=== PATIENT | male | born 1990 | race Caucasian/White ===

== ENCOUNTER 2020-05-24 16:45 | Emergency (ER) | payer OTHER, SELFPAY ==
[2020-05-24 18:11] VITALS: BP 135/57; PULSE 86; RESP 18; TEMP 36.7; O2SAT 100; BMI 32.3
--- NOTE | 2020-05-24 18:12 | ED.GENADULT ---
HPI - General Adult General Chief complaint: Psychiatric Symptoms <PB Montesinos - Last Filed: 05/24/20 18:17> Stated complaint: Crisis <PB Montesinos - Last Filed: 05/24/20 18:17> Time Seen by Provider: 05/24/20 18:10 <PB Montesinos Last Filed: 05/24/20 18:17> Source: patient <PB Montesinos - Last Filed: 05/24/20 18:17> Mode of arrival: ambulatory <PB Montesinos Last Filed: 05/24/20 18:17> Limitations: no limitations <PB Montesinos Last Filed: 05/24/20 18:17> History of Present Illness HPI narrative: 29 y/o male with history of bipolar depression previously on lithium, anxiety, Asberger's who presents with loree as well as suicidal thoughts x1 week. He has a plan of cutting his abdomen. History of SI but no attempts. He has been putting off getting helping because of his work schedule. He has been off of his psychiatric medications for several months and has not seen his therapist for several months. He reports again this was due to work conflicts. He works 3rd shift at [employer]. He is now homeless, sleeping in hotels from time to time. Admits to occasional ETOH but denies recent and denies drug use. <PB Montesinos - Last Filed: 05/24/20 18:17> MD complaint: loree & SI <PB Montesinos - Last Filed: 05/24/20 18:17> Onset (ago): week(s) (1) <PB Montesinos - Last Filed: 05/24/20 18:17> Severity: severe <PB Montesinos Last Filed: 05/24/20 18:17> Associated symptoms: headaches, loss of appetite and other (insomnia) <PB Montesinos Last Filed: 05/24/20 18:17> Treatments prior to arrival: none <PB Montesinos Last Filed: 05/24/20 18:17> Related Data Allergies/adverse reactions: Allergies Allergy/AdvReac Type Severity Reaction Status Date / Time No Known Allergies Allergy Verified 05/24/20 18:10 [No Known Allergies*] <PB Montesinos - Last Filed: 05/24/20 18:17> [facility] Past Medical History Medical History: Medical History (Updated 05/25/20 @ 00:55 by PB Montgomery) Anxiety Asperger syndrome Bipolar 1 disorder <PB Montesinos - Last Filed: 05/24/20 18:17> Social History Social History: Social History Alcohol intake: current Alcohol intake frequency: holidays/special occasions only Smoking Status: Unknown if ever smoked Use of substances other than those prescribed or required for medical reasons: No Advance Directives: No Advance Directives Information Provided: No <PB Montesinos - Last Filed: 05/24/20 18:17> Physical Exam Vital Signs: Vital Signs: Last Vital Signs Temp 97.3 F 05/24/20 23:55 Pulse 78 05/24/20 23:55 Resp 18 05/24/20 23:55 BP 116/66 05/24/20 23:55 Pulse Ox 99 05/24/20 23:55 Body Mass Index 32.3 <PB Montesinos - Last Filed: 05/24/20 18:17> Vital Signs: Last Vital Signs Temp 97.3 F 05/24/20 23:55 Pulse 78 05/24/20 23:55 Resp 18 05/24/20 23:55 BP 116/66 05/24/20 23:55 Pulse Ox 99 05/24/20 23:55 Body Mass Index 32.3 <PB Motngomery - Last Filed: 05/25/20 00:55> Course Course Course Narrative: Rapid medical assessment - 29 y/o male with history of bipolar <PB Montesinos - Last Filed: 05/24/20 18:17> Reevaluation(s) Reevaluation #1: Patient seen by [facility] consulted who states patient is safe for discharge. She states patient does not have any suicidal or homicidal ideation. Patient reiterates he is not suicidal or homicidal. Patient will be discharged. <PB Montgomery - Last Filed: 05/25/20 00:55> Time: 00:53 <PB Montgomery - Last Filed: 05/25/20 00:55> Medical Decision Making Lab Data Result diagrams: : 05/24/20 18:50 05/24/20 18:50 <PB Montesinos - Last Filed: 05/24/20 18:17> Labs: Lab Results 05/24/20 05/24/20 05/24/20 Range/Units 18:50 18:50 18:50 WBC 8.1 (4.8-10.8) X10*3/uL RBC 5.45 (4.60-5.80) X10*6/uL Hgb 16.1 (14.0-18.0) g/dl Hct 48.3 (42-52) % MCV 88.6 (80-98) fL MCH 29.5 (27.0-33.0) pg MCHC 33.3 (31.0-36.0) g/dl RDW 12.2 (11.0-16.0) % Plt Count 225 (160-400) X10*3/uL MPV 11.1 (9.4-12.4) fL Immature Gran % (Auto) 1.1 H (0.0-0.4) % Neut % (Auto) 63.8 (45-73) % Lymph % (Auto) 23.1 (20-40) % [place] % (Auto) 9.2 (2-11) % Eos % (Auto) 2.1 (0-4) % Baso % (Auto) 0.7 (0-2) % Lymph # (Auto) 1.9 (1.2-4.9) X10*3/uL [place] # (Auto) 0.8 (0.1-1.2) X10*3/uL Eos # (Auto) 0.2 (0.0-0.4) X10*3/uL Baso # (Auto) 0.1 (0.0-0.2) X10*3/uL Abs Immat Gran (auto) 0.09 H (0.00-0.03) X10*3/uL Absolute Neuts (auto) 5.2 (2.0-8.3) X10*3/uL Absolute Nucleated RBC 0.000 (0.0-0.012) X10*3/uL Nucleated RBC % (auto) 0.0 (0.0-0.2) /100WBC Sodium 137 (135-145) mmol/L Potassium 4.4 (3.3-5.1) mmol/l Chloride 102 (96-108) mmol/L Carbon Dioxide 25 (22-29) mmol/L Anion Gap 14 (12-20) BUN 15 (9-16) mg/dL Creatinine 0.78 (0.5-1.4) mg/dL Estim Creat Clear Calc 148.7 Estimated GFR > 60 POC Glucose (60-115) mg/dL Random Glucose 93 (60-115) mg/dL Calcium 9.8 (8.4-10.2) mg/dL Magnesium 2.1 (1.6-2.6) mg/dL Total Bilirubin 0.5 (0.0-1.0) mg/dL Direct Bilirubin 0.2 (0.0-0.5) mg/dL AST 21 (5-37) U/L ALT 31 (0-40) U/L Alkaline Phosphatase 70 (39-117) U/L Total Protein 7.7 (6.5-8.0) g/dL Albumin 4.8 (3.5-5.0) g/dL Urine Opiates Screen (Not Detect) Ur Barbiturates Screen (Not Detect) Ur Phencyclidine Scrn (Not Detect) Ur Amphetamines Screen (Not Detect) U Benzodiazepines Scrn (Not Detect) [place] < 0.10 L (0.60-1.20) mmol/L Urine Cocaine Screen (Not Detect) U Marijuana (THC) Screen (Not Detect) Ethyl Alcohol mg/dL 05/24/20 05/24/20 05/24/20 Range/Units 18:50 18:51 18:55 WBC (4.8-10.8) X10*3/uL RBC (4.60-5.80) X10*6/uL Hgb (14.0-18.0) g/dl Hct (42-52) % MCV (80-98) fL MCH (27.0-33.0) pg MCHC (31.0-36.0) g/dl RDW (11.0-16.0) % Plt Count (160-400) X10*3/uL MPV (9.4-12.4) fL Immature Gran % (Auto) (0.0-0.4) % Neut % (Auto) (45-73) % Lymph % (Auto) (20-40) % [place] % (Auto) (2-11) % Eos % (Auto) (0-4) % Baso % (Auto) (0-2) % Lymph # (Auto) (1.2-4.9) X10*3/uL [place] # (Auto) (0.1-1.2) X10*3/uL Eos # (Auto) (0.0-0.4) X10*3/uL Baso # (Auto) (0.0-0.2) X10*3/uL Abs Immat Gran (auto) (0.00-0.03) X10*3/uL Absolute Neuts (auto) (2.0-8.3) X10*3/uL Absolute Nucleated RBC (0.0-0.012) X10*3/uL Nucleated RBC % (auto) (0.0-0.2) /100WBC Sodium (135-145) mmol/L Potassium (3.3-5.1) mmol/l Chloride (96-108) mmol/L Carbon Dioxide (22-29) mmol/L Anion Gap (12-20) BUN (9-16) mg/dL Creatinine (0.5-1.4) mg/dL Estim Creat Clear Calc Estimated GFR POC Glucose 81 (60-115) mg/dL Random Glucose (60-115) mg/dL Calcium (8.4-10.2) mg/dL Magnesium (1.6-2.6) mg/dL Total Bilirubin (0.0-1.0) mg/dL Direct Bilirubin (0.0-0.5) mg/dL AST (5-37) U/L ALT (0-40) U/L Alkaline Phosphatase (39-117) U/L Total Protein (6.5-8.0) g/dL Albumin (3.5-5.0) g/dL Urine Opiates Screen Not Detected (Not Detect) Ur Barbiturates Screen Not Detected (Not Detect) Ur Phencyclidine Scrn Not Detected (Not Detect) Ur Amphetamines Screen Not Detected (Not Detect) U Benzodiazepines Scrn Not Detected (Not Detect) [place] (0.60-1.20) mmol/L Urine Cocaine Screen Not Detected (Not Detect) U Marijuana (THC) Screen Not Detected (Not Detect) Ethyl Alcohol < 10 mg/dL <PB Montesinos - Last Filed: 05/24/20 18:17> Lab Results 05/24/20 05/24/20 05/24/20 Range/Units 18:50 18:50 18:50 WBC 8.1 (4.8-10.8) X10*3/uL RBC 5.45 (4.60-5.80) X10*6/uL Hgb 16.1 (14.0-18.0) g/dl Hct 48.3 (42-52) % MCV 88.6 (80-98) fL MCH 29.5 (27.0-33.0) pg MCHC 33.3 (31.0-36.0) g/dl RDW 12.2 (11.0-16.0) % Plt Count 225 (160-400) X10*3/uL MPV 11.1 (9.4-12.4) fL Immature Gran % (Auto) 1.1 H (0.0-0.4) % Neut % (Auto) 63.8 (45-73) % Lymph % (Auto) 23.1 (20-40) % [place] % (Auto) 9.2 (2-11) % Eos % (Auto) 2.1 (0-4) % Baso % (Auto) 0.7 (0-2) % Lymph # (Auto) 1.9 (1.2-4.9) X10*3/uL [place] # (Auto) 0.8 (0.1-1.2) X10*3/uL Eos # (Auto) 0.2 (0.0-0.4) X10*3/uL Baso # (Auto) 0.1 (0.0-0.2) X10*3/uL Abs Immat Gran (auto) 0.09 H (0.00-0.03) X10*3/uL Absolute Neuts (auto) 5.2 (2.0-8.3) X10*3/uL Absolute Nucleated RBC 0.000 (0.0-0.012) X10*3/uL Nucleated RBC % (auto) 0.0 (0.0-0.2) /100WBC Sodium 137 (135-145) mmol/L Potassium 4.4 (3.3-5.1) mmol/l Chloride 102 (96-108) mmol/L Carbon Dioxide 25 (22-29) mmol/L Anion Gap 14 (12-20) BUN 15 (9-16) mg/dL Creatinine 0.78 (0.5-1.4) mg/dL Estim Creat Clear Calc 148.7 Estimated GFR > 60 POC Glucose (60-115) mg/dL Random Glucose 93 (60-115) mg/dL Calcium 9.8 (8.4-10.2) mg/dL Magnesium 2.1 (1.6-2.6) mg/dL Total Bilirubin 0.5 (0.0-1.0) mg/dL Direct Bilirubin 0.2 (0.0-0.5) mg/dL AST 21 (5-37) U/L ALT 31 (0-40) U/L Alkaline Phosphatase 70 (39-117) U/L Total Protein 7.7 (6.5-8.0) g/dL Albumin 4.8 (3.5-5.0) g/dL Urine Opiates Screen (Not Detect) Ur Barbiturates Screen (Not Detect) Ur Phencyclidine Scrn (Not Detect) Ur Amphetamines Screen (Not Detect) U Benzodiazepines Scrn (Not Detect) [place] < 0.10 L (0.60-1.20) mmol/L Urine Cocaine Screen (Not Detect) U Marijuana (THC) Screen (Not Detect) Ethyl Alcohol mg/dL 05/24/20 05/24/20 05/24/20 Range/Units 18:50 18:51 18:55 WBC (4.8-10.8) X10*3/uL RBC (4.60-5.80) X10*6/uL Hgb (14.0-18.0) g/dl Hct (42-52) % MCV (80-98) fL MCH (27.0-33.0) pg MCHC (31.0-36.0) g/dl RDW (11.0-16.0) % Plt Count (160-400) X10*3/uL MPV (9.4-12.4) fL Immature Gran % (Auto) (0.0-0.4) % Neut % (Auto) (45-73) % Lymph % (Auto) (20-40) % [place] % (Auto) (2-11) % Eos % (Auto) (0-4) % Baso % (Auto) (0-2) % Lymph # (Auto) (1.2-4.9) X10*3/uL [place] # (Auto) (0.1-1.2) X10*3/uL Eos # (Auto) (0.0-0.4) X10*3/uL Baso # (Auto) (0.0-0.2) X10*3/uL Abs Immat Gran (auto) (0.00-0.03) X10*3/uL Absolute Neuts (auto) (2.0-8.3) X10*3/uL Absolute Nucleated RBC (0.0-0.012) X10*3/uL Nucleated RBC % (auto) (0.0-0.2) /100WBC Sodium (135-145) mmol/L Potassium (3.3-5.1) mmol/l Chloride (96-108) mmol/L Carbon Dioxide (22-29) mmol/L Anion Gap (12-20) BUN (9-16) mg/dL Creatinine (0.5-1.4) mg/dL Estim Creat Clear Calc Estimated GFR POC Glucose 81 (60-115) mg/dL Random Glucose (60-115) mg/dL Calcium (8.4-10.2) mg/dL Magnesium (1.6-2.6) mg/dL Total Bilirubin (0.0-1.0) mg/dL Direct Bilirubin (0.0-0.5) mg/dL AST (5-37) U/L ALT (0-40) U/L Alkaline Phosphatase (39-117) U/L Total Protein (6.5-8.0) g/dL Albumin (3.5-5.0) g/dL Urine Opiates Screen Not Detected (Not Detect) Ur Barbiturates Screen Not Detected (Not Detect) Ur Phencyclidine Scrn Not Detected (Not Detect) Ur Amphetamines Screen Not Detected (Not Detect) U Benzodiazepines Scrn Not Detected (Not Detect) [place] (0.60-1.20) mmol/L Urine Cocaine Screen Not Detected (Not Detect) U Marijuana (THC) Screen Not Detected (Not Detect) Ethyl Alcohol < 10 mg/dL <PB Montgomery - Last Filed: 05/25/20 00:55> Discharge Plan Discharge Clinical Impression: Bipolar disorder, Depression <PB Montesinos - Last Filed: 05/24/20 18:17> Patient Disposition: Home, Self-Care <PB Montesinos - Last Filed: 05/24/20 18:17> Instructions: Bipolar Disorder (ED), Depression (ED) <PB Montesinos - Last Filed: 05/24/20 18:17> Additional Instructions: Return to the ED immediately for any suicida/homicidal ideation, auditory/visual hallucinations, or any other concerning symptoms. Please follow-up with the PCP <PB Montesinos - Last Filed: 05/24/20 18:17> Print Language: Macanese <PB Montesinos - Last Filed: 05/24/20 18:17>
[2020-05-24 18:31] VITALS: BP 120/66; PULSE 82; RESP 18; TEMP 36.7; O2SAT 96
--- NOTE | 2020-05-24 18:33 | PC.NURSE ---
Pt cooperative with post exchange manager, reports that he has been off his medications for a few months, states he doesn't remember when he last took them. PT reports SI no specific plan at this time.
[2020-05-24 18:56] LABS: MANUAL DIFF FLAG NO
[2020-05-24 18:59] LABS: Glucose, Whole Blood 81 mg/dL (60-115)
[2020-05-24 19:00] LABS: Basophils Absolute Auto 0.1 X10*3/uL (0.0-0.2); Basophils Percent Auto 0.7 % (0-2); Eosinophils Absolute Auto 0.2 X10*3/uL (0.0-0.4); Eosinophils Percent Auto 2.1 % (0-4); Hematocrit 48.3 % (42-52); Hemoglobin 16.1 g/dl (14.0-18.0); Imm Gran Abs Auto 0.09 X10*3/uL (0.00-0.03); Imm Gran Pct Auto 1.1 % (0.0-0.4); Lymphocytes Absolute Auto 1.9 X10*3/uL (1.2-4.9); Lymphocytes Percent Auto 23.1 % (20-40); Mean Corpuscular HGB Conc 33.3 g/dl (31.0-36.0); Mean Corpuscular Hemoglobin 29.5 pg (27.0-33.0); Mean Corpuscular Volume 88.6 fL (80-98); Mean Platelet Volume 11.1 fL (9.4-12.4); Monocytes Absolute Auto 0.8 X10*3/uL (0.1-1.2); Monocytes Percent Auto 9.2 % (2-11); Neutrophils Absolute Auto 5.2 X10*3/uL (2.0-8.3); Neutrophils Percent Auto 63.8 % (45-73); Platelet Count 225 X10*3/uL (160-400); Red Blood Count 5.45 X10*6/uL (4.60-5.80); Red Cell Distribution Width 12.2 % (11.0-16.0); White Blood Count 8.1 X10*3/uL (4.8-10.8)
--- NOTE | 2020-05-24 19:13 | PC.NURSE ---
Report received. PT is resting in his room. Calm and cooperative. PT waiting to be seen by N.
[2020-05-24 19:18] LABS: Ethanol < 10 mg/dL
[2020-05-24 19:20] LABS: Alanine Aminotransferase 31 U/L (0-40); Albumin Level 4.8 g/dL (3.5-5.0); Alkaline Phosphatase 70 U/L (39-117); Anion Gap 14 (12-20); Aspartate Amino Transferase 21 U/L (5-37); Bilirubin Direct 0.2 mg/dL (0.0-0.5); Bilirubin Total 0.5 mg/dL (0.0-1.0); Blood Urea Nitrogen 15 mg/dL (9-16); Calcium 9.8 mg/dL (8.4-10.2); Carbon Dioxide 25 mmol/L (22-29); Chloride 102 mmol/L (96-108); Creatinine Clr Calc Pharmacy 148.7; Estimated Glomerular Filt Rate > 60; Glucose Random 93 mg/dL (60-115); Magnesium 2.1 mg/dL (1.6-2.6); Potassium 4.4 mmol/l (3.3-5.1); Sodium 137 mmol/L (135-145); Total Protein 7.7 g/dL (6.5-8.0)
--- NOTE | 2020-05-24 19:36 | PC.NURSE ---
GEOVANNAN faxed and called. GEOVANNAN stated the PT would likely be seen on 3rd shift.
[2020-05-24 19:41] LABS: Lithium < 0.10 mmol/L (0.60-1.20)
[2020-05-24 19:44] LABS: Amphetamine Screen Urine Not Detected (Not Detect); Barbiturates, Urine Not Detected (Not Detect); Benzodiazepines Screen Urine Not Detected (Not Detect); Cannabinoid Screen Urine Not Detected (Not Detect); Cocaine Screen Urine Not Detected (Not Detect); Opiate Screen Urine Not Detected (Not Detect); Phencyclidine Screen Urine Not Detected (Not Detect)
--- NOTE | 2020-05-24 22:10 | PC.NURSE ---
BHN at bed side.
[2020-05-24 23:55] VITALS: BP 116/66; PULSE 78; RESP 18; TEMP 36.3; O2SAT 99
== END 2020-05-25 01:04 | disposition home or self-care (01) ==
PROVIDERS: Physician Assistant; Emergency Provider Emergency Medicine
DX: F32.9 Major depressive disorder, single episode, unspecified (principal); F84.5 Asperger's syndrome; Z79.899 Other long term (current) drug therapy
CPT/HCPCS: 36415; 80048; 80076; 80178; 80307; 80320; 82947; 83735; 85025; 99284; 99285

== ENCOUNTER 2020-05-26 13:38 | Inpatient (IN) | payer OTHER, SELFPAY ==
[2020-05-26 13:55] VITALS: BP 125/73; PULSE 80; TEMP 36.4; O2SAT 99
--- NOTE | 2020-05-26 15:10 | PC.NURSE ---
Report received. Pt resting in bed at current, no complaints at this time.
[2020-05-26 16:07] LABS: Amphetamine Screen Urine Not Detected (Not Detect); Barbiturates, Urine Not Detected (Not Detect); Benzodiazepines Screen Urine Not Detected (Not Detect); Cannabinoid Screen Urine Not Detected (Not Detect); Cocaine Screen Urine Not Detected (Not Detect); Opiate Screen Urine Not Detected (Not Detect); Phencyclidine Screen Urine Not Detected (Not Detect)
[2020-05-26 16:23] VITALS: BMI 31.0
--- NOTE | 2020-05-26 16:31 | PC.NURSE ---
SUSAN faxed and called.
--- NOTE | 2020-05-26 16:47 | ED.PSYCH ---
HPI - Psych General Chief Complaint: Psychiatric Symptoms Stated Complaint: crisis Time Seen by Provider: 05/26/20 14:19 Source: patient Mode of arrival: ambulatory Limitations: no limitations History of Present Illness HPI Narrative: 29-year-old male with history of bipolar disorder presenting with Ohri via triage with complaint of SI states he has been out of his psych medications for the past several months and has had increased feeling of disorganized and feels has disorganized behaviors with suicidal ideation. States recently fired from a job. Patient was seen here 2 days ago for similar had lab work and evaluate crisis team set up with outpatient services returns as he feels that they recommended respite and feels he needs respite service. complaint: suicidal ideation and feels depressed Relieving factors: none Associated psychiatric symptoms: none Treatments prior to arrival: none Related Data Allergies Allergy/AdvReac Type Severity Reaction Status Date / Time No Known Allergies Allergy Verified 05/24/20 18:10 [No Known Allergies*] Review of Systems Review of Systems: Constitutional: No Weight loss, No Fever, No Chills, No Night Sweats, No Fatigue, No Malaise ENT/Mouth: No Hearing loss, No Ear Pain, No Nasal Congestion, No Sinus Pain, No Hoarseness, No sore throat, No Rhinorrhea, No Swallowing Difficulty Eyes: No Eye Pain, No Swelling, No Redness, No Foreign Body, No Discharge, No Vision Changes Cardiovascular: No Chest Pain, No SOB, No Dyspnea on Exertion, No Orthopnea, No Edema, No Palpitations Respiratory: No Cough, No Sputum, No Wheezing, No Smoke Exposure, No Dyspnea Gastrointestinal: No Nausea, No Vomiting, No Diarrhea, No Constipation, No abdominal Pain, No Hematochezia, No Melena Genitourinary: No Dysuria, No Urinary Frequency, No Hematuria, No Urinary Incontinence, No Urgency, No Flank Pain Musculoskeletal: No joint pain, No Myalgias, No Joint Swelling Skin: No Skin Lesions, No rash Neuro: No Weakness, No Numbness, No Paresthesias, No Loss of Consciousness, No Dizziness, No Headache Psych: Has known HPI Heme/Lymph: No Bruising, No Bleeding,No Lymphadenopathy Endocrine: No Polyuria, No Polydipsia, No Temperature Intolerance Yes all other systems are reviewed and are negative [facility] Past Medical History Medical History (Updated 05/26/20 @ 16:50 by Bradly Medina NP) Anxiety Asperger syndrome Bipolar 1 disorder Social History Social History Alcohol intake: current Alcohol intake frequency: holidays/special occasions only Alcohol type: beer Smoking Status: Never smoker Use of substances other than those prescribed or required for medical reasons: No Advance Directives: No Advance Directives Information Provided: No Physical Exam Vital Signs: Vital Signs: Last Vital Signs Temp 97.5 F 05/26/20 13:55 Pulse 80 05/26/20 13:55 BP 125/73 05/26/20 13:55 Pulse Ox 99 05/26/20 13:55 Body Mass Index 31.0 Reviewed Const: General: cooperative and healthy appearing; No acute distress or intoxicated appearing Nutritional Appearance: average body habitus Orientation/consciousness: patient oriented x3 HENMT: Head: Yes normal to inspection Ears: hearing grossly normal bilaterally Eyes: General: appearance normal, both eyes and all related structures Visual Richard: normal visual richard by confrontation Neck: Neck: Yes normal visual inspection, No positive Brudzinski's sign, No positive Kernig's sign and No tender Thyroid: Thyroid normal Chest: Chest palpation & inspection: normal inspection of the chest Resp: Effort & Inspection: normal respiratory effort Cardio: Jugular venous distension: no JVD Rhythm: regular rhythm Heart sounds: S1 normal heart sound present and S2 normal heart sound present GI: Inspection: Yes normal to inspection Palpation (GI): Soft to palpation Percussion: Yes normal to percussion Auscultation: normal bowel sounds : General: Yes no CVA tenderness Back/Spine/Pelvis: Back: no CVA tenderness Skin: General skin exam: no rashes or lesions noted Neuro: General: patient oriented x3 Extrem: General: Yes normal to inspection Course Course Course Narrative: 1500 Labs reviewed from 2 days ago 05/24/2020 stable. With before on any additional labs. He is stable offers no medical complaints. Will obtain crisis evaluation. Consultations Consultation #1: Sign out to night team pending crisis evaluation and disposition. MDM - Psych Restraints Face to Face Assessment: Face to Face Assessment: Current Situation: After assessment of the patient, a review of the pertinent medical record and a discussion with nursing staff, I feel the patient requires a restrain intervention. Reaction To: [] Medical Condition: [] Behavioral State: [] Continued Need: [] Lab Data Labs: Lab Results 05/26/20 Range/Units 15:21 Urine Opiates Screen Not Detected (Not Detect) Ur Barbiturates Screen Not Detected (Not Detect) Ur Phencyclidine Scrn Not Detected (Not Detect) Ur Amphetamines Screen Not Detected (Not Detect) U Benzodiazepines Scrn Not Detected (Not Detect) Urine Cocaine Screen Not Detected (Not Detect) U Marijuana (THC) Screen Not Detected (Not Detect) Discharge Plan Discharge Clinical Impression: Depression
--- NOTE | 2020-05-26 16:59 | PC.NURSE ---
Pt asleep at current. No signs of distress. Respirations even and unlabored. Waiting to be seen by BHN.
[2020-05-26 18:41] VITALS: BP 107/69; PULSE 86; RESP 18; TEMP 36.7; O2SAT 98
--- NOTE | 2020-05-26 21:41 | PC.NURSE ---
Patient just got assessed by care team, disposition updated, patient is on section 12 in-patient bed search, patient and provider both aware per Crae team clinician. Will continue to monitor.
[2020-05-27] VITALS (9 sets, daily range): BP systolic 99–123; BP diastolic 58–66; PULSE 84–99; RESP 16–20; TEMP 36.3–36.8; O2SAT 94–99
--- NOTE | 2020-05-27 05:52 | PC.NURSE ---
Patient slept through the night, no distress observed/reported, vital signs assess were WNL, swabbed for covid/pending results, will continue to monitor.
[2020-05-27 06:09] LABS: COVID-19 Test Negative (Negative)
--- NOTE | 2020-05-27 07:00 | PC.NURSE ---
Report received from VICKEY Walsh. Pt resting, resp unlabored.
--- NOTE | 2020-05-27 09:18 | PC.NURSE ---
Pt resting, resp unlabored
--- NOTE | 2020-05-27 10:57 | PC.NURSE ---
Pt resting in room, awake. Pt aware that he has been accepted to [facility] and is in agreement w/ plan. Pt reports continued depression, states it is 'bad.'
--- NOTE | 2020-05-27 13:47 | PC.NURSE ---
Pt resting, resp unlabored
--- NOTE | 2020-05-27 13:49 | PC.NURSE ---
Pt resting, resp unlabored
--- NOTE | 2020-05-27 15:09 | PC.NURSE ---
Pt awake, resting, denies any concerns at this time.
--- NOTE | 2020-05-27 16:14 | PC.NURSE ---
Report given to VICKEY Vásquez on [facility].
--- NOTE | 2020-05-27 17:14 | PC.NURSE ---
Care team in to transfer pot to [facility]. Pt alert, affect even, appears to be in agreement w/ p[dominique, no concerns reported.
--- NOTE | 2020-05-27 19:35 | PC.ADMIT ---
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 1735 ON A CV STATUS. PT. IS COVID -, UTOX - FOR ALL SUBSTANCES. PT. HAS HAD A PREVIOUS ADMISSION ON [facility] ON 01/25/20. PT. HAS PRESENTED TO [facility] ED X 2 WITHIN A WEEK WITH COMPLAINTS OF INCREASED MOOD INSTABILITY AND SI WITH THE PLAN TO DISEMBOWEL HIMSELF. PT. IDENTIFIED SLEEP DISTURBANCE SECOND TO NOT TAKING MEDICATIONS. PT. HAS LOST HIS OUTPATIENT PROVIDERS, THEREFORE CANNOT ACCESS HIS MEDICATIONS. HE IS HOMELESS AND NEWLY UNEMPLOYED. PT. HAS DIFFICULTY NAVIGATING THROUGH COMPLEX PROBLEMS, AND STRUGGLES TO ENGAGE WITH HIS NATURAL SUPPORT (MOTHER AND FRIENDS) FOR HELP. PT. PRESENTS WITH FAIR INSIGHT AND POOR JUDGMENT, BUT IS HELP SEEKING AT [facility] WITH THE HOPE TO GET BACK ON MEDICATIONS AND WORK WITH SW ON A PLAN FOR AFTER HIS D/C. HE HAS DX OF AUTISM SPECTRUM DISORDER AND BIPOLAR DISORDER. PT. SIGNED ALL HIS LEGALS, HE IS NOT A SMOKER, HE REFUSED THE OFFERED FLU VACCINE. HE WAS PLACED ON 15 MIN. SAFETY CHECKS, MEDICATION ORDERS ARE CURRENTLY PLACED BY OLAYINKA JACKSON. PT. REPORTED HE FEELS SAFE ON THE UNIT, HE WAS ORIENTED AND HE ATE DINNER.
[2020-05-28 06:40] VITALS: BP 116/58; PULSE 93; RESP 18; TEMP 36.3; O2SAT 98
[2020-05-28 18:00] VITALS: BP 120/60; PULSE 93; TEMP 36.6
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
[2020-05-28] MEDS: Lithium Carbonate ER 300 MG TABLET.ER PO (21:05)
[2020-05-28] MEDS: QUEtiapine Fumarate 25 MG TABLET PO (21:05)
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
[2020-05-29 06:30] VITALS: BP 118/58; PULSE 89; RESP 16; TEMP 36.4; O2SAT 98
[2020-05-29] MEDS: lamoTRIgine 25 MG TABLET PO (08:23)
[2020-05-29] MEDS: Lithium Carbonate ER 300 MG TABLET.ER PO ×2 (08:23→20:58)
--- NOTE | 2020-05-29 14:47 | P.PNPSI_ITS ---
Subjective Subjective Date of Service: 05/29/20 Reason For Visit: autism spectrum disorder Interim History: Pt reports feeling less depressed, less overwhelmed. He denies SI/HI. However, he reports having chronic suicidal thoughts. He reports he has very limited support from friends or family. He reports sleeping and eating well. No behavioral concerns. Medication Compliance: Yes Side effects from medications: No Attending Groups: Yes Review of Systems Review of Systems Constitutional: No Weight loss, No Fever, No Chills, No Night Sweats, No Fatigue, No Malaise ENT/Mouth: No Hearing loss, No Ear Pain, No Nasal Congestion, No Sinus Pain, No Hoarseness, No sore throat, No Rhinorrhea, No Swallowing Difficulty Eyes: No Eye Pain, No Swelling, No Redness, No Foreign Body, No Discharge, No Vision Changes Cardiovascular: No Chest Pain, No SOB, No Dyspnea on Exertion, No Orthopnea, No Edema, No Palpitations Respiratory: No Cough, No Sputum, No Wheezing, No Smoke Exposure, No Dyspnea Gastrointestinal: No Nausea, No Vomiting, No Diarrhea, No Constipation, No abdominal Pain, No Hematochezia, No Melena Genitourinary: No Dysuria, No Urinary Frequency, No Hematuria, No Urinary Incontinence, No Urgency, No Flank Pain Musculoskeletal: No joint pain, No Myalgias, No Joint Swelling Skin: No Skin Lesions, No rash Neuro: No Weakness, No Numbness, No Paresthesias, No Loss of Consciousness, No Dizziness, No Headache Psych: Has known HPI Heme/Lymph: No Bruising, No Bleeding,No Lymphadenopathy Endocrine: No Polyuria, No Polydipsia, No Temperature Intolerance Yes all other systems are reviewed and are negative Mental Status Exam Mental Status Exam Narrative: Appearance: casually groomed, good hygiene, ambulating on his own, NAD Behavior: calm, cooperative Psychomotor: no agitation or retardation noted Speech: clear, normal rate/rhythm/volume, spontaneous TP: linear TC: no signs of psychosis, feeling hopeless/helpless, lonely Mood: depressed Affect: blunted AH/VH: none Delusions: none Insight/judgment: poor x 2. Memory/cog: alert, oriented x 3. Grossly intact to conversational testing. Diagnostics Vital Signs (24Hr): Vital Signs - 24 hr 05/28/20 18:00 05/29/20 06:30 Temperature 98 F 97.6 F Pulse Rate 93 89 Respiratory Rate 16 Blood Pressure 120/60 118/58 L Pulse Oximetry 98 Body Mass Index 31.0 Medications Medications Current Medications Generic Name Dose Route Start Last Admin Trade Name Michaelq PRN Reason Stop Dose Admin Acetaminophen 650 mg 05/27/20 19:53 Acetaminophen 325 Mg Tablet PO Q6H PRN Headache/Pain Mild Scale (1-3) Al Hydroxide/Mg Hydroxide 30 ml 05/27/20 19:53 Magnesium Hydrox/Alum Hydrox 30 Ml Oral.Susp PO Q6H PRN Heartburn/Nausea Hydroxyzine HCl 50 mg 05/27/20 19:53 Hydroxyzine Hcl 25 Mg Tablet PO Q6H PRN Anxiety/allergy Lamotrigine 25 mg 05/29/20 09:00 05/29/20 08:23 Lamotrigine 25 Mg Tablet PO 25 mg DAILY TERRENCE Administration [place] Carbonate 300 mg 05/28/20 21:00 05/29/20 08:23 [place] Carbonate Er 300 Mg Tablet.Er PO 300 mg BID TERRENCE Administration Magnesium Hydroxide 30 ml 05/27/20 19:53 Milk Of Magnesia 30 Ml Oral.Susp PO DAILY PRN Constipation Quetiapine Fumarate 25 mg 05/28/20 21:00 05/28/20 21:05 Quetiapine Fumarate 25 Mg Tablet PO 25 mg BEDTIME TERRENCE Administration Trazodone HCl 50 mg 05/27/20 19:53 Trazodone Hcl 50 Mg Tablet PO BEDTIME PRN Insomnia Allergies Allergies Allergy/AdvReac Type Severity Reaction Status Date / Time No Known Allergies Allergy Verified 05/24/20 18:10 [No Known Allergies*] Assessment & Plan Assessment & Plan (1) Bipolar 1 disorder, depressed, moderate: Status: Acute Code(s): F31.32 - Bipolar disorder, current episode depressed, moderate Assessment and Plan: 1. continue current medications. Greater than 50% of the session was spent on counseling and/or coordination of care
[2020-05-29 16:15] VITALS: BP 137/65; PULSE 84; TEMP 36.9
[2020-05-29] MEDS: QUEtiapine Fumarate 25 MG TABLET PO (20:58)
[2020-05-30 06:25] VITALS: BP 111/64; PULSE 83; RESP 18; TEMP 36.4; O2SAT 98
[2020-05-30] MEDS: lamoTRIgine 25 MG TABLET PO (08:15)
[2020-05-30] MEDS: Lithium Carbonate ER 300 MG TABLET.ER PO ×2 (08:15→21:03)
--- NOTE | 2020-05-30 13:56 | HO.PSYCHPN ---
Subjective Subjective Date of Service: 05/30/20 Reason For Visit: autism spectrum disorder Interim History: Pt reports feeling less depressed, less overwhelmed. He denies SI/HI. However, he reports having chronic suicidal thoughts. He reports he has very limited support from friends or family. He reports sleeping and eating well. No behavioral concerns. Pt has been visible in the unit, attending groups. Social with select peers. Review of Systems Review of Systems Constitutional: No Weight loss, No Fever, No Chills, No Night Sweats, No Fatigue, No Malaise ENT/Mouth: No Hearing loss, No Ear Pain, No Nasal Congestion, No Sinus Pain, No Hoarseness, No sore throat, No Rhinorrhea, No Swallowing Difficulty Eyes: No Eye Pain, No Swelling, No Redness, No Foreign Body, No Discharge, No Vision Changes Cardiovascular: No Chest Pain, No SOB, No Dyspnea on Exertion, No Orthopnea, No Edema, No Palpitations Respiratory: No Cough, No Sputum, No Wheezing, No Smoke Exposure, No Dyspnea Gastrointestinal: No Nausea, No Vomiting, No Diarrhea, No Constipation, No abdominal Pain, No Hematochezia, No Melena Genitourinary: No Dysuria, No Urinary Frequency, No Hematuria, No Urinary Incontinence, No Urgency, No Flank Pain Musculoskeletal: No joint pain, No Myalgias, No Joint Swelling Skin: No Skin Lesions, No rash Neuro: No Weakness, No Numbness, No Paresthesias, No Loss of Consciousness, No Dizziness, No Headache Psych: Has known HPI Heme/Lymph: No Bruising, No Bleeding,No Lymphadenopathy Endocrine: No Polyuria, No Polydipsia, No Temperature Intolerance Yes all other systems are reviewed and are negative Mental Status Exam Mental Status Exam Narrative: Appearance: casually groomed, good hygiene, ambulating on his own, NAD Behavior: calm, cooperative Psychomotor: no agitation or retardation noted Speech: clear, normal rate/rhythm/volume, spontaneous TP: linear TC: no signs of psychosis, feeling hopeless/helpless, lonely Mood: depressed Affect: blunted AH/VH: none Delusions: none Insight/judgment: poor x 2. Memory/cog: alert, oriented x 3. Grossly intact to conversational testing. Diagnostics Vital Signs (24Hr): Vital Signs - 24 hr 05/29/20 16:15 05/30/20 06:25 Temperature 98.4 F 97.6 F Pulse Rate 84 83 Respiratory Rate 18 Blood Pressure 137/65 111/64 Pulse Oximetry 98 Body Mass Index 31.0 Medications Medications Current Medications Generic Name Dose Route Start Last Admin Trade Name Freq PRN Reason Stop Dose Admin Acetaminophen 650 mg 05/27/20 19:53 Acetaminophen 325 Mg Tablet PO Q6H PRN Headache/Pain Mild Scale (1-3) Al Hydroxide/Mg Hydroxide 30 ml 05/27/20 19:53 Magnesium Hydrox/Alum Hydrox 30 Ml Oral.Susp PO Q6H PRN Heartburn/Nausea Hydroxyzine HCl 50 mg 05/27/20 19:53 Hydroxyzine Hcl 25 Mg Tablet PO Q6H PRN Anxiety/allergy Lamotrigine 25 mg 05/29/20 09:00 05/30/20 08:15 Lamotrigine 25 Mg Tablet PO 25 mg DAILY [facility] Administration [place] Carbonate 300 mg 05/28/20 21:00 05/30/20 08:15 [place] Carbonate Er 300 Mg Tablet.Er PO 300 mg BID TERRENCE Administration Magnesium Hydroxide 30 ml 05/27/20 19:53 Milk Of Magnesia 30 Ml Oral.Susp PO DAILY PRN Constipation Quetiapine Fumarate 25 mg 05/28/20 21:00 05/29/20 20:58 Quetiapine Fumarate 25 Mg Tablet PO 25 mg BEDTIME [facility]ERRENCE Administration Trazodone HCl 50 mg 05/27/20 19:53 Trazodone Hcl 50 Mg Tablet PO BEDTIME PRN Insomnia Allergies Allergies Allergy/AdvReac Type Severity Reaction Status Date / Time No Known Allergies Allergy Verified 05/24/20 18:10 [No Known Allergies*] Assessment & Plan Assessment & Plan (1) Bipolar 1 disorder, depressed, moderate: Status: Acute Code(s): F31.32 - Bipolar disorder, current episode depressed, moderate Assessment and Plan: 1. continue current medications. Greater than 50% of the session was spent on counseling and/or coordination of care
[2020-05-30] MEDS: QUEtiapine Fumarate 25 MG TABLET PO (21:03)
[2020-05-30 21:05] VITALS: BP 144/63; PULSE 106; TEMP 36.7
[2020-05-31 06:35] VITALS: BP 104/60; PULSE 94; RESP 16; TEMP 36.8; O2SAT 98
[2020-05-31] MEDS: Lithium Carbonate ER 300 MG TABLET.ER PO ×2 (08:52→20:51)
[2020-05-31] MEDS: lamoTRIgine 25 MG TABLET PO (08:52)
[2020-05-31 18:00] VITALS: BP 133/62; PULSE 97; TEMP 36.4
[2020-05-31] MEDS: QUEtiapine Fumarate 25 MG TABLET PO (20:50)
--- NOTE | 2020-05-31 22:02 | HO.PSYCHPN ---
Subjective Subjective Date of Service: 06/01/20 Reason For Visit: suicidality mood instability Subjective Notes: Conditional Voluntary Interim History: Pt depressed anxious irritable passive si Medication Compliance: Yes Side effects from medications: No Attending Groups: Intermittent Mental Status Exam Mental Status Exam Narrative: Appearance: casually groomed, good hygiene, ambulating on his own, NAD Behavior: calm, cooperative Psychomotor: no agitation or retardation noted Speech: clear, normal rate/rhythm/volume, spontaneous TP: linear TC: no signs of psychosis, feeling hopeless/helpless, lonely Mood: depressed Affect: blunted AH/VH: none Delusions: none Insight/judgment: poor x 2. Memory/cog: alert, oriented x 3. Grossly intact to conversational testing. Diagnostics Vital Signs (24Hr): Vital Signs - 24 hr 05/31/20 06:35 05/31/20 18:00 Temperature 98.2 F 97.5 F Pulse Rate 94 97 Respiratory Rate 16 Blood Pressure 104/60 133/62 Pulse Oximetry 98 Body Mass Index 31.0 Medications Medications Current Medications Generic Name Dose Route Start Last Admin Trade Name Freq PRN Reason Stop Dose Admin Acetaminophen 650 mg 05/27/20 19:53 Acetaminophen 325 Mg Tablet PO Q6H PRN Headache/Pain Mild Scale (1-3) Al Hydroxide/Mg Hydroxide 30 ml 05/27/20 19:53 Magnesium Hydrox/Alum Hydrox 30 Ml Oral.Susp PO Q6H PRN Heartburn/Nausea Hydroxyzine HCl 50 mg 05/27/20 19:53 Hydroxyzine Hcl 25 Mg Tablet PO Q6H PRN Anxiety/allergy Lamotrigine 25 mg 05/29/20 09:00 05/31/20 08:52 Lamotrigine 25 Mg Tablet PO 25 mg DAILY [facility]ERR[facility] Administration [place] Carbonate 300 mg 05/28/20 21:00 05/31/20 20:51 [place] Carbonate Er 300 Mg Tablet.Er PO 300 mg BID TERRENCE Administration Magnesium Hydroxide 30 ml 05/27/20 19:53 Milk Of Magnesia 30 Ml Oral.Susp PO DAILY PRN Constipation Quetiapine Fumarate 25 mg 05/28/20 21:00 05/31/20 20:50 Quetiapine Fumarate 25 Mg Tablet PO 25 mg BEDTIME TERRENCE Administration Trazodone HCl 50 mg 05/27/20 19:53 Trazodone Hcl 50 Mg Tablet PO BEDTIME PRN Insomnia Allergies Allergies Allergy/AdvReac Type Severity Reaction Status Date / Time No Known Allergies Allergy Verified 05/24/20 18:10 [No Known Allergies*] Assessment & Plan Assessment & Plan (1) Asperger syndrome: Status: Acute Code(s): F84.5 - Asperger's syndrome (2) Suicidal thoughts: Status: Acute Code(s): R45.851 - Suicidal ideations Assessment and Plan: monitor self harming thoughts evaluate safety (3) Bipolar 1 disorder, depressed, severe: Status: Acute Code(s): F31.4 - Bipolar disorder, current episode depressed, severe, without psychotic features Assessment and Plan: continue lithium lamictal Greater than 50% of the session was spent on counseling and/or coordination of care Patient educated on: diagnosis and medication risk/benefits Reason for contiued inpatient stay Substantial Risk for: harm to self
[2020-06-01 06:25] VITALS: BP 102/53; PULSE 83; RESP 16; TEMP 36.5; O2SAT 98
[2020-06-01] MEDS: Lithium Carbonate ER 300 MG TABLET.ER PO ×2 (08:50→20:47)
[2020-06-01] MEDS: lamoTRIgine 25 MG TABLET PO (08:50)
[2020-06-01 18:00] VITALS: BP 128/73; PULSE 74; TEMP 36.9
[2020-06-01] MEDS: QUEtiapine Fumarate 25 MG TABLET PO (20:47)
--- NOTE | 2020-06-01 23:17 | P.PNPSI_ITS ---
Subjective Subjective Date of Service: 06/01/20 Reason For Visit: suicidality mood instability Interim History: patient irritable reactive hostile at times upset that there is not and easy place for him to live reactive with low frustration tolerance Medication Compliance: Yes Mental Status Exam Mental Status Exam Narrative: Appearance: casually groomed, good hygiene, ambulating on his own, NAD Behavior: calm, cooperative Psychomotor: no agitation or retardation noted Speech: clear, normal rate/rhythm/volume, spontaneous TP: linear TC: no signs of psychosis, feeling hopeless/helpless, lonely Mood: depressed Affect: blunted AH/VH: none Delusions: none Insight/judgment: poor x 2. Memory/cog: alert, oriented x 3. Grossly intact to conversational testing. Patient Appearance: Well Grooomed Patient Behavior: Belligerent (at times ) Diagnostics Vital Signs (24Hr): Vital Signs - 24 hr 06/01/20 06:25 06/01/20 18:00 Temperature 97.7 F 98.5 F Pulse Rate 83 74 Respiratory Rate 16 Blood Pressure 102/53 L 128/73 Pulse Oximetry 98 Body Mass Index 31.0 Medications Medications Current Medications Generic Name Dose Route Start Last Admin Trade Name Freq PRN Reason Stop Dose Admin Acetaminophen 650 mg 05/27/20 19:53 Acetaminophen 325 Mg Tablet PO Q6H PRN Headache/Pain Mild Scale (1-3) Al Hydroxide/Mg Hydroxide 30 ml 05/27/20 19:53 Magnesium Hydrox/Alum Hydrox 30 Ml Oral.Susp PO Q6H PRN Heartburn/Nausea Hydroxyzine HCl 50 mg 05/27/20 19:53 Hydroxyzine Hcl 25 Mg Tablet PO Q6H PRN Anxiety/allergy Lamotrigine 25 mg 05/29/20 09:00 06/01/20 08:50 Lamotrigine 25 Mg Tablet PO 25 mg DAILY TERRENCE Administration [place] Carbonate 300 mg 05/28/20 21:00 06/01/20 20:47 [place] Carbonate Er 300 Mg Tablet.Er PO 300 mg BID TERRENCE Administration Magnesium Hydroxide 30 ml 05/27/20 19:53 Milk Of Magnesia 30 Ml Oral.Susp PO DAILY PRN Constipation Quetiapine Fumarate 25 mg 05/28/20 21:00 06/01/20 20:47 Quetiapine Fumarate 25 Mg Tablet PO 25 mg BEDTIME TERRENCE Administration Trazodone HCl 50 mg 05/27/20 19:53 Trazodone Hcl 50 Mg Tablet PO BEDTIME PRN Insomnia Allergies Allergies Allergy/AdvReac Type Severity Reaction Status Date / Time No Known Allergies Allergy Verified 05/24/20 18:10 [No Known Allergies*] Assessment & Plan Assessment & Plan (1) Bipolar 1 disorder, depressed, severe: Status: Acute Code(s): F31.4 - Bipolar disorder, current episode depressed, severe, without psychotic features Assessment and Plan: continue lithium and Lamictal encourage acceptance coping strategies (2) Asperger syndrome: Status: Acute Code(s): F84.5 - Asperger's syndrome Greater than 50% of the session was spent on counseling and/or coordination of care Patient educated on: diagnosis, medication risk/benefits and therapeutic strategies Informed Consent: further education needed Reason for contiued inpatient stay Substantial Risk for: harm to self and rapid decompensation
[2020-06-02 06:30] VITALS: BP 111/58; PULSE 82; RESP 18; TEMP 36.6; O2SAT 99
[2020-06-02] MEDS: lamoTRIgine 25 MG TABLET PO (09:14)
[2020-06-02] MEDS: Lithium Carbonate ER 300 MG TABLET.ER PO ×2 (09:14→21:27)
[2020-06-02 18:40] VITALS: BP 135/74; PULSE 100; TEMP 36.7
[2020-06-02] MEDS: QUEtiapine Fumarate 25 MG TABLET PO (21:27)
--- NOTE | 2020-06-02 23:28 | HO.PSYCHPN ---
Subjective Subjective Date of Service: 06/03/20 Reason For Visit: suicidality mood instability Subjective Notes: Conditional Voluntary Interim History: pt has been irritable dysphoric easily frustrated tends toward blaming others Medication Compliance: Yes Side effects from medications: No Mental Status Exam Mental Status Exam Narrative: Appearance: casually groomed, good hygiene, ambulating on his own, NAD Behavior: calm, cooperative Psychomotor: no agitation or retardation noted Speech: clear, normal rate/rhythm/volume, spontaneous TP: linear TC: no signs of psychosis, feeling hopeless/helpless, lonely Mood: depressed Affect: blunted AH/VH: none Delusions: none Insight/judgment: poor x 2. Memory/cog: alert, oriented x 3. Grossly intact to conversational testing. Patient Appearance: Well Grooomed Patient Behavior: Belligerent (at times ) Diagnostics Vital Signs (24Hr): Vital Signs - 24 hr 06/02/20 06:30 06/02/20 18:40 Temperature 97.9 F 98.1 F Pulse Rate 82 100 Respiratory Rate 18 Blood Pressure 111/58 L 135/74 Pulse Oximetry 99 Body Mass Index 31.0 Medications Medications Current Medications Generic Name Dose Route Start Last Admin Trade Name Freq PRN Reason Stop Dose Admin Acetaminophen 650 mg 05/27/20 19:53 Acetaminophen 325 Mg Tablet PO Q6H PRN Headache/Pain Mild Scale (1-3) Al Hydroxide/Mg Hydroxide 30 ml 05/27/20 19:53 Magnesium Hydrox/Alum Hydrox 30 Ml Oral.Susp PO Q6H PRN Heartburn/Nausea Hydroxyzine HCl 50 mg 05/27/20 19:53 Hydroxyzine Hcl 25 Mg Tablet PO Q6H PRN Anxiety/allergy Lamotrigine 25 mg 05/29/20 09:00 06/02/20 09:14 Lamotrigine 25 Mg Tablet PO 25 mg DAILY TERRENCE Administration [place] Carbonate 300 mg 05/28/20 21:00 06/02/20 21:27 [place] Carbonate Er 300 Mg Tablet.Er PO 300 mg BID TERRENCE Administration Magnesium Hydroxide 30 ml 05/27/20 19:53 Milk Of Magnesia 30 Ml Oral.Susp PO DAILY PRN Constipation Quetiapine Fumarate 25 mg 05/28/20 21:00 06/02/20 21:27 Quetiapine Fumarate 25 Mg Tablet PO 25 mg BEDTIME TERRENCE Administration Trazodone HCl 50 mg 05/27/20 19:53 Trazodone Hcl 50 Mg Tablet PO BEDTIME PRN Insomnia Allergies Allergies Allergy/AdvReac Type Severity Reaction Status Date / Time No Known Allergies Allergy Verified 05/24/20 18:10 [No Known Allergies*] Assessment & Plan Assessment & Plan (1) Asperger syndrome: Status: Acute Code(s): F84.5 - Asperger's syndrome (2) Bipolar 1 disorder, depressed, severe: Status: Acute Code(s): F31.4 - Bipolar disorder, current episode depressed, severe, without psychotic features Assessment and Plan: continue lithium ck level inc as tolerated Greater than 50% of the session was spent on counseling and/or coordination of care
--- NOTE | 2020-06-02 23:49 | PC.NURSE ---
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 Pt said this had delayed a discharge on a previous admission. Pt also said he would like Dr. Cruz to call his mother and apn an update on how he is doing. Pt said signed authorization to share information with his mother.
[2020-06-03 06:25] VITALS: BP 113/52; PULSE 65; RESP 16; TEMP 36.8; O2SAT 98
[2020-06-03] MEDS: Lithium Carbonate ER 300 MG TABLET.ER PO (09:18)
[2020-06-03] MEDS: lamoTRIgine 25 MG TABLET PO (09:18)
--- NOTE | 2020-06-03 17:35 | HO.PSYCHPN ---
Subjective Subjective Date of Service: 06/04/20 Reason For Visit: suicidality mood instability Subjective Notes: Conditional Voluntary Interim History: the patient is labile times with catastrophic thinking hopelessness is asking for clonidine for anxiety which she has taken previously agreeable to increase lithium continue Lamictal Seroquel 25 at bedtime was offered a daytime p.r.n. Medication Compliance: Yes Side effects from medications: No Mental Status Exam Mental Status Exam Patient Appearance: Well Grooomed Level of Consciousness: Appropriate Patient Behavior: Guarded, Anxious and Impulsive Behavior Comments: can be reactive and irritable Mood Description: Depressed, Anxious and Apprehensive Affect Description: Labile and Nervous Hallucinations: None Delusions: Not Present Thought Process: Rumination Thought Content: positive for Obsessional Thoughts Depressive Symptoms: Increased Anxiety, Increased Irritability, Unhappiness and Low Self Esteem Judgement and Insight: patient with difficulty in changing cognitive sets some improved insight as to the limitations housing from a psychiatric unit can have catastrophic and reactive thinking Diagnostics Vital Signs (24Hr): Vital Signs - 24 hr 06/02/20 18:40 06/03/20 06:25 Temperature 98.1 F 98.2 F Pulse Rate 100 65 Respiratory Rate 16 Blood Pressure 135/74 113/52 L Pulse Oximetry 98 Body Mass Index 31.0 Medications Medications Current Medications Generic Name Dose Route Start Last Admin Trade Name Freq PRN Reason Stop Dose Admin Acetaminophen 650 mg 05/27/20 19:53 Acetaminophen 325 Mg Tablet PO Q6H PRN Headache/Pain Mild Scale (1-3) Al Hydroxide/Mg Hydroxide 30 ml 05/27/20 19:53 Magnesium Hydrox/Alum Hydrox 30 Ml Oral.Susp PO Q6H PRN Heartburn/Nausea Clonidine HCl 0.1 mg 06/03/20 11:08 Clonidine Hcl 0.1 Mg Tablet PO BID PRN Anxiety Protocol Hydroxyzine HCl 50 mg 05/27/20 19:53 Hydroxyzine Hcl 25 Mg Tablet PO Q6H PRN Anxiety/allergy Lamotrigine 25 mg 05/29/20 09:00 06/03/20 09:18 Lamotrigine 25 Mg Tablet PO 25 mg DAILY TERRENCE Administration [place] Carbonate 450 mg 06/03/20 21:00 [place] Carbonate Er 450 Mg Tablet.Er PO BID TERRENCE Magnesium Hydroxide 30 ml 05/27/20 19:53 Milk Of Magnesia 30 Ml Oral.Susp PO DAILY PRN Constipation Quetiapine Fumarate 25 mg 05/28/20 21:00 06/02/20 21:27 Quetiapine Fumarate 25 Mg Tablet PO 25 mg BEDTIME TERRENCE Administration Trazodone HCl 50 mg 05/27/20 19:53 Trazodone Hcl 50 Mg Tablet PO BEDTIME PRN Insomnia Allergies Allergies Allergy/AdvReac Type Severity Reaction Status Date / Time No Known Allergies Allergy Verified 05/24/20 18:10 [No Known Allergies*] Assessment & Plan Assessment & Plan (1) Asperger syndrome: Status: Acute Code(s): F84.5 - Asperger's syndrome Assessment and Plan: clonidine for anxiety difficulty managing interpersonal cues changing sets (2) Suicidal thoughts: Status: Acute Code(s): R45.851 - Suicidal ideations (3) Bipolar 1 disorder, depressed, moderate: Status: Acute Code(s): F31.32 - Bipolar disorder, current episode depressed, moderate Assessment and Plan: was stable previously on 600 b.i.d. continue Lamictal low-dose Seroquel case was reviewed with patient's mother because of SSI patient not able to move in to his mother's apartment this is providing a lot stress hopelessness monitor suicidality Greater than 50% of the session was spent on counseling and/or coordination of care
[2020-06-03 18:00] VITALS: BP 141/74; PULSE 86; TEMP 36.8
[2020-06-03] MEDS: Lithium Carbonate ER 450 MG TABLET.ER PO (21:11)
[2020-06-03] MEDS: QUEtiapine Fumarate 25 MG TABLET PO (21:11)
[2020-06-04] MEDS: Lithium Carbonate ER 450 MG TABLET.ER PO (09:58)
[2020-06-04] MEDS: lamoTRIgine 25 MG TABLET PO (09:58)
[2020-06-04 10:22] LABS: Lithium 0.42 mmol/L (0.60-1.20)
--- NOTE | 2020-06-04 16:53 | HO.PSYCHPN ---
Subjective Subjective Date of Service: 06/04/20 Reason For Visit: suicidality mood instability Subjective Notes: Conditional Voluntary Interim History: Pt plans discharge for 06/07/19. He declined to meet today, citing no questions or concerns. He identified a stressor as how to support himself upon discharge. Social service worked to help him connect with [facility] which he reports he plans to do. Medication Compliance: Yes Side effects from medications: No Attending Groups: Intermittent Review of Systems Review of Systems Yes all other systems are reviewed and are negative (pt denies sx.) Psychiatric: Reports anxiety Mental Status Exam Mental Status Exam Patient Appearance: Appropriate Patient Orientation: Person, Place, Time and Situation Level of Consciousness: Alert Patient Behavior: Guarded Mood Description: Suspicious and Withdrawn Affect Description: Constricted Patient Cognition Impaired: No Ability to Follow Directions: Good Speech Pattern: Spontaneous Speech Memory Description: Intact Hallucinations: None Delusions: Not Present Thought Process: Intact Thought Content: positive for Intact Depressive Symptoms: Increased Anxiety Judgement: Good Diagnostics Vital Signs (24Hr): Vital Signs - 24 hr 06/03/20 18:00 Temperature 98.2 F Pulse Rate 86 Blood Pressure 141/74 H Body Mass Index 31.0 Labs Labs: Laboratory Results - last 48 hr 06/04/20 09:53 [place] 0.42 L Medications Medications Current Medications Generic Name Dose Route Start Last Admin Trade Name Jamin PRN Reason Stop Dose Admin Acetaminophen 650 mg 05/27/20 19:53 Acetaminophen 325 Mg Tablet PO Q6H PRN Headache/Pain Mild Scale (1-3) Al Hydroxide/Mg Hydroxide 30 ml 05/27/20 19:53 Magnesium Hydrox/Alum Hydrox 30 Ml Oral.Susp PO Q6H PRN Heartburn/Nausea Clonidine HCl 0.1 mg 06/03/20 11:08 Clonidine Hcl 0.1 Mg Tablet PO BID PRN Anxiety Protocol Hydroxyzine HCl 50 mg 05/27/20 19:53 Hydroxyzine Hcl 25 Mg Tablet PO Q6H PRN Anxiety/allergy Lamotrigine 25 mg 05/29/20 09:00 06/04/20 09:58 Lamotrigine 25 Mg Tablet PO 25 mg DAILY TERRENCE Administration [place] Carbonate 600 mg 06/04/20 21:00 [place] Carbonate Er 300 Mg Tablet.Er PO BID TERRENCE Magnesium Hydroxide 30 ml 05/27/20 19:53 Milk Of Magnesia 30 Ml Oral.Susp PO DAILY PRN Constipation Quetiapine Fumarate 25 mg 05/28/20 21:00 06/03/20 21:11 Quetiapine Fumarate 25 Mg Tablet PO 25 mg BEDTIME TERRENCE Administration Trazodone HCl 50 mg 05/27/20 19:53 Trazodone Hcl 50 Mg Tablet PO BEDTIME PRN Insomnia Allergies Allergies Allergy/AdvReac Type Severity Reaction Status Date / Time No Known Allergies Allergy Verified 05/24/20 18:10 [No Known Allergies*] Assessment & Plan Assessment & Plan (1) Asperger syndrome: Status: Acute Code(s): F84.5 - Asperger's syndrome (2) Bipolar 1 disorder, depressed, severe: Status: Acute Code(s): F31.4 - Bipolar disorder, current episode depressed, severe, without psychotic features Assessment and Plan: Continue current regime. Today, pt not interested in increasing [place]. Greater than 50% of the session was spent on counseling and/or coordination of care Reason for contiued inpatient stay Substantial Risk for: rapid decompensation
[2020-06-04 18:00] VITALS: BP 120/67; PULSE 72; TEMP 36.6
[2020-06-04] MEDS: Lithium Carbonate ER 300 MG TABLET.ER 600 MG PO (21:12)
[2020-06-04] MEDS: QUEtiapine Fumarate 25 MG TABLET PO (21:12)
[2020-06-05] MEDS: lamoTRIgine 25 MG TABLET PO (08:44)
[2020-06-05] MEDS: Lithium Carbonate ER 300 MG TABLET.ER 600 MG PO ×2 (08:45→20:02)
--- NOTE | 2020-06-05 09:37 | HO.PSYCHPN ---
Subjective Subjective Date of Service: 06/05/20 Reason For Visit: suicidality mood instability Interim History: Pt plans discharge for 06/07/19. Pleasant. Cooperative. No complaints Review of Systems Review of Systems Constitutional: No Weight loss, No Fever, No Chills, No Night Sweats, No Fatigue, No Malaise ENT/Mouth: No Hearing loss, No Ear Pain, No Nasal Congestion, No Sinus Pain, No Hoarseness, No sore throat, No Rhinorrhea, No Swallowing Difficulty Eyes: No Eye Pain, No Swelling, No Redness, No Foreign Body, No Discharge, No Vision Changes Cardiovascular: No Chest Pain, No SOB, No Dyspnea on Exertion, No Orthopnea, No Edema, No Palpitations Respiratory: No Cough, No Sputum, No Wheezing, No Smoke Exposure, No Dyspnea Gastrointestinal: No Nausea, No Vomiting, No Diarrhea, No Constipation, No abdominal Pain, No Hematochezia, No Melena Genitourinary: No Dysuria, No Urinary Frequency, No Hematuria, No Urinary Incontinence, No Urgency, No Flank Pain Musculoskeletal: No joint pain, No Myalgias, No Joint Swelling Skin: No Skin Lesions, No rash Neuro: No Weakness, No Numbness, No Paresthesias, No Loss of Consciousness, No Dizziness, No Headache Psych: Has known HPI Heme/Lymph: No Bruising, No Bleeding,No Lymphadenopathy Endocrine: No Polyuria, No Polydipsia, No Temperature Intolerance Yes all other systems are reviewed and are negative (pt denies sx.) Psychiatric: Reports anxiety Mental Status Exam Mental Status Exam Narrative: Appearance: casually groomed, good hygiene, ambulating on his own, NAD Behavior: calm, cooperative Psychomotor: no agitation or retardation noted Speech: clear, normal rate/rhythm/volume, spontaneous TP: linear TC: no signs of psychosis, feeling hopeless/helpless, lonely Mood: depressed Affect: blunted AH/VH: none Delusions: none Insight/judgment: poor x 2. Memory/cog: alert, oriented x 3. Grossly intact to conversational testing. Patient Appearance: Appropriate Patient Orientation: Person, Place, Time and Situation Level of Consciousness: Alert Patient Behavior: Guarded Behavior Comments: can be reactive and irritable Mood Description: Suspicious and Withdrawn Affect Description: Constricted Patient Cognition Impaired: No Ability to Follow Directions: Good Speech Pattern: Spontaneous Speech Memory Description: Intact Diagnostics Vital Signs (24Hr): Vital Signs - 24 hr 01/29/21 18:00 Temperature 98 F Pulse Rate 72 Blood Pressure 120/67 Body Mass Index 31.0 Labs Labs: Laboratory Results - last 48 hr 06/04/20 09:53 [place] 0.42 L Medications Medications Current Medications Generic Name Dose Route Start Last Admin Trade Name Freq PRN Reason Stop Dose Admin Acetaminophen 650 mg 05/27/20 19:53 Acetaminophen 325 Mg Tablet PO Q6H PRN Headache/Pain Mild Scale (1-3) Al Hydroxide/Mg Hydroxide 30 ml 05/27/20 19:53 Magnesium Hydrox/Alum Hydrox 30 Ml Oral.Susp PO Q6H PRN Heartburn/Nausea Clonidine HCl 0.1 mg 06/03/20 11:08 Clonidine Hcl 0.1 Mg Tablet PO BID PRN Anxiety Protocol Hydroxyzine HCl 50 mg 05/27/20 19:53 Hydroxyzine Hcl 25 Mg Tablet PO Q6H PRN Anxiety/allergy Lamotrigine 25 mg 05/29/20 09:00 06/05/20 08:44 Lamotrigine 25 Mg Tablet PO 25 mg DAILY TERRENCE Administration [place] Carbonate 600 mg 06/04/20 21:00 06/05/20 08:45 [place] Carbonate Er 300 Mg Tablet.Er PO 600 mg BID TERRENCE Administration Magnesium Hydroxide 30 ml 05/27/20 19:53 Milk Of Magnesia 30 Ml Oral.Susp PO DAILY PRN Constipation Quetiapine Fumarate 25 mg 05/28/20 21:00 06/04/20 21:12 Quetiapine Fumarate 25 Mg Tablet PO 25 mg BEDTIME TERRENCE Administration Trazodone HCl 50 mg 05/27/20 19:53 Trazodone Hcl 50 Mg Tablet PO BEDTIME PRN Insomnia Allergies Allergies Allergy/AdvReac Type Severity Reaction Status Date / Time No Known Allergies Allergy Verified 05/24/20 18:10 [No Known Allergies*] Assessment & Plan Assessment & Plan (1) Asperger syndrome: Status: Acute Code(s): F84.5 - Asperger's syndrome (2) Bipolar 1 disorder, depressed, severe: Status: Acute Code(s): F31.4 - Bipolar disorder, current episode depressed, severe, without psychotic features Assessment and Plan: Continue current regime. Today, pt not interested in increasing [place]. Greater than 50% of the session was spent on counseling and/or coordination of care Reason for contiued inpatient stay Substantial Risk for: stable for discharge
[2020-06-05 10:09] VITALS: BP 138/78; PULSE 78; RESP 18; TEMP 36.7; O2SAT 100
[2020-06-05 16:50] VITALS: BP 113/59; PULSE 76; TEMP 37.1
[2020-06-05] MEDS: QUEtiapine Fumarate 25 MG TABLET PO (20:02)
[2020-06-06 06:00] VITALS: BP 120/75; PULSE 75; TEMP 36.7; O2SAT 99
--- NOTE | 2020-06-06 08:13 | HO.PSYCHPN ---
Subjective Subjective Date of Service: 06/06/20 Reason For Visit: suicidality mood instability Interim History: Pt plans discharge for 06/07/19. Pleasant. Cooperative. No complaints Review of Systems Review of Systems Constitutional: No Weight loss, No Fever, No Chills, No Night Sweats, No Fatigue, No Malaise ENT/Mouth: No Hearing loss, No Ear Pain, No Nasal Congestion, No Sinus Pain, No Hoarseness, No sore throat, No Rhinorrhea, No Swallowing Difficulty Eyes: No Eye Pain, No Swelling, No Redness, No Foreign Body, No Discharge, No Vision Changes Cardiovascular: No Chest Pain, No SOB, No Dyspnea on Exertion, No Orthopnea, No Edema, No Palpitations Respiratory: No Cough, No Sputum, No Wheezing, No Smoke Exposure, No Dyspnea Gastrointestinal: No Nausea, No Vomiting, No Diarrhea, No Constipation, No abdominal Pain, No Hematochezia, No Melena Genitourinary: No Dysuria, No Urinary Frequency, No Hematuria, No Urinary Incontinence, No Urgency, No Flank Pain Musculoskeletal: No joint pain, No Myalgias, No Joint Swelling Skin: No Skin Lesions, No rash Neuro: No Weakness, No Numbness, No Paresthesias, No Loss of Consciousness, No Dizziness, No Headache Psych: Has known HPI Heme/Lymph: No Bruising, No Bleeding,No Lymphadenopathy Endocrine: No Polyuria, No Polydipsia, No Temperature Intolerance Yes all other systems are reviewed and are negative (pt denies sx.) Psychiatric: Reports anxiety Mental Status Exam Mental Status Exam Narrative: Appearance: casually groomed, good hygiene, ambulating on his own, NAD Behavior: calm, cooperative Psychomotor: no agitation or retardation noted Speech: clear, normal rate/rhythm/volume, spontaneous TP: linear TC: no signs of psychosis, feeling hopeless/helpless, lonely Mood: depressed Affect: blunted AH/VH: none Delusions: none Insight/judgment: poor x 2. Memory/cog: alert, oriented x 3. Grossly intact to conversational testing. Patient Appearance: Appropriate Patient Orientation: Person, Place, Time and Situation Level of Consciousness: Alert Patient Behavior: Guarded Behavior Comments: can be reactive and irritable Mood Description: Suspicious and Withdrawn Affect Description: Constricted Patient Cognition Impaired: No Ability to Follow Directions: Good Speech Pattern: Spontaneous Speech Memory Description: Intact Diagnostics Vital Signs (24Hr): Vital Signs - 24 hr 01/30/21 10:09 06/05/20 16:50 Temperature 98.1 F 98.7 F Pulse Rate 78 76 Respiratory Rate 18 Blood Pressure 138/78 113/59 L Pulse Oximetry 100 Body Mass Index 31.0 Labs Labs: Laboratory Results - last 48 hr 06/04/20 09:53 [place] 0.42 L Medications Medications Current Medications Generic Name Dose Route Start Last Admin Trade Name Freq PRN Reason Stop Dose Admin Acetaminophen 650 mg 05/27/20 19:53 Acetaminophen 325 Mg Tablet PO Q6H PRN Headache/Pain Mild Scale (1-3) Al Hydroxide/Mg Hydroxide 30 ml 05/27/20 19:53 Magnesium Hydrox/Alum Hydrox 30 Ml Oral.Susp PO Q6H PRN Heartburn/Nausea Clonidine HCl 0.1 mg 06/03/20 11:08 Clonidine Hcl 0.1 Mg Tablet PO BID PRN Anxiety Protocol Hydroxyzine HCl 50 mg 05/27/20 19:53 Hydroxyzine Hcl 25 Mg Tablet PO Q6H PRN Anxiety/allergy Lamotrigine 25 mg 05/29/20 09:00 06/05/20 08:44 Lamotrigine 25 Mg Tablet PO 25 mg DAILY TERRENCE Administration [place] Carbonate 600 mg 06/04/20 21:00 06/05/20 20:02 [place] Carbonate Er 300 Mg Tablet.Er PO 600 mg BID TERRENCE Administration Magnesium Hydroxide 30 ml 05/27/20 19:53 Milk Of Magnesia 30 Ml Oral.Susp PO DAILY PRN Constipation Quetiapine Fumarate 25 mg 05/28/20 21:00 06/05/20 20:02 Quetiapine Fumarate 25 Mg Tablet PO 25 mg BEDTIME TERRENCE Administration Trazodone HCl 50 mg 05/27/20 19:53 Trazodone Hcl 50 Mg Tablet PO BEDTIME PRN Insomnia Allergies Allergies Allergy/AdvReac Type Severity Reaction Status Date / Time No Known Allergies Allergy Verified 05/24/20 18:10 [No Known Allergies*] Assessment & Plan Assessment & Plan (1) Asperger syndrome: Status: Acute Code(s): F84.5 - Asperger's syndrome (2) Bipolar 1 disorder, depressed, severe: Status: Acute Code(s): F31.4 - Bipolar disorder, current episode depressed, severe, without psychotic features Assessment and Plan: Continue current regime. Today, pt not interested in increasing [place]. Greater than 50% of the session was spent on counseling and/or coordination of care Reason for contiued inpatient stay Substantial Risk for: stable for discharge
[2020-06-06] MEDS: Lithium Carbonate ER 300 MG TABLET.ER 600 MG PO ×2 (08:26→20:11)
[2020-06-06] MEDS: lamoTRIgine 25 MG TABLET PO (08:26)
[2020-06-06 17:45] VITALS: BP 130/61; PULSE 75; TEMP 36.8
[2020-06-06] MEDS: QUEtiapine Fumarate 25 MG TABLET PO (20:11)
[2020-06-07] MEDS: lamoTRIgine 25 MG TABLET PO (08:33)
[2020-06-07] MEDS: Lithium Carbonate ER 300 MG TABLET.ER 600 MG PO (08:33)
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
== END 2020-06-07 16:30 | disposition home or self-care (01) | DRG 753 ==
LOC: HO.ED 13:52 → HO.PM5 05-27 16:40
PROVIDERS: Nurse Practitioner Primary Care; Physician Assistant; Admitting Provider Psychiatry & Neurology Psychiatry; Emergency Provider Emergency Medicine Emergency Medical Services; Visit Provider Psychiatry & Neurology Psychiatry
DX: F31.4 Bipolar disorder, current episode depressed, severe, without psychotic features (principal); R45.851 Suicidal ideations; F41.9 Anxiety disorder, unspecified; F84.5 Asperger's syndrome; Z59.0 Homelessness; Z20.822 Contact with and (suspected) exposure to COVID-19; Z79.899 Other long term (current) drug therapy
CPT/HCPCS: 36415; 80178; 80307; 87635; 99232; 99285

== ENCOUNTER 2021-12-10 15:02 | Emergency (ER) | payer OTHER, SELFPAY ==
[2021-12-10 15:09] VITALS: BP 101/68; PULSE 101; RESP 18; TEMP 38; O2SAT 96; BMI 45.1
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
[2021-12-10] MEDS: Ondansetron ODT 4 MG TAB.RAPDIS TRANSLINGU (16:09)
[2021-12-10] MEDS: Acetaminophen 325 MG TABLET 650 MG PO (16:09)
[2021-12-10 16:19] LABS: MANUAL DIFF FLAG NO
[2021-12-10 16:29] LABS: Basophils Percent Auto 0.2 % (0-2); Eosinophils Absolute Auto 0.1 X10*3/uL (0.0-0.4); Eosinophils Percent Auto 0.9 % (0-4); Hematocrit 40.8 % (42.0-52.0); Hemoglobin 13.6 g/dl (14.0-18.0); Imm Gran Abs Auto 0.08 X10*3/uL (0.00-0.03); Imm Gran Pct Auto 0.5 % (0.0-0.4); Lymphocytes Absolute Auto 1.1 X10*3/uL (1.2-4.9); Lymphocytes Percent Auto 6.5 % (20-40); Mean Corpuscular HGB Conc 33.3 g/dl (31.0-36.0); Mean Corpuscular Hemoglobin 28.3 pg (27.0-33.0); Mean Corpuscular Volume 84.8 fL (80.0-98.0); Mean Platelet Volume 11.1 fL (9.4-12.4); Monocytes Percent Auto 6.2 % (2-11); Neutrophils Percent Auto 85.7 % (45-73); Platelet Count 213 X10*3/uL (160-400); Red Blood Count 4.81 X10*6/uL (4.60-5.80); White Blood Count 16.3 X10*3/uL (4.8-10.8)
[2021-12-10 16:44] LABS: Anion Gap 14 (12-20); Blood Urea Nitrogen 7 mg/dL (9-16); Calcium 8.8 mg/dL (8.4-10.2); Carbon Dioxide 23 mmol/L (22-29); Chloride 104 mmol/L (96-108); Creatinine Clr Calc Pharmacy 160.1; Estimated Glomerular Filt Rate > 60; Glucose Random 99 mg/dL (60-115); Potassium 3.5 mmol/L (3.3-5.1); Sodium 137 mmol/L (135-145)
[2021-12-10 17:08] VITALS: PULSE 88; RESP 18; TEMP 37.7; O2SAT 96
--- NOTE | 2021-12-10 18:30 | ED_ITS ---
HPI - Skin/Abscess/Foreign Bdy General Chief complaint: Weakness Stated complaint: rash Time Seen by Provider: 12/10/21 17:11 Source: patient Mode of arrival: ambulatory Limitations: no limitations History of Present Illness HPI narrative: Patient presents emergency department for evaluation of erythema and rash to the bilateral lower extremities. By his report these have been present for months. However he was seen at [facility] yesterday as he was experiencing fevers, chills, and feeling sweaty in the morning. He states that he had an extensive workup including IV fluids CT scans x-rays and blood work. He states that his white blood cell count was 30. He was ultimately discharged home with a prescription for triamcinolone cream. He states he came to the emergency department today because he would like a 2nd opinion about the rash to his legs. Has no new concerns. Related Data Previous Rx's Medication Instructions Recorded clonidine HCl 0.1 mg tablet 0.1 mg PO BID PRN Anxiety 30 days 06/07/20 #30 tabs lamotrigine 25 mg tablet 25 mg PO BID 30 days #60 tabs 06/07/20 lithium carbonate 300 mg 600 mg PO BID 30 days #120 tabs 06/07/20 tablet,extended release quetiapine 25 mg tablet 25 mg PO BEDTIME 30 days #30 tabs 06/07/20 cephalexin 500 mg capsule 500 mg PO QID 7 days #28 caps 12/10/21 Allergies Allergy/AdvReac Type Severity Reaction Status Date / Time No Known Allergies Allergy Verified 05/24/20 18:10 [No Known Allergies*] Review of Systems Review of Systems: Constitutional: Positive fevers Skin: Positive rash Cardiovascular: No chest pain, chest pressure or chest discomfort. No palpitations. Positive pedal edema Respiratory: No shortness of breath, cough or sputum production. Gastrointestinal: No anorexia, nausea, vomiting or diarrhea. No abdominal pain Genitourinary: No burning micturition. No urinary frequency Musculoskeletal: No muscle pain, back pain, joint pain or stiffness. Psychiatric: No depression or anxiety. Yes all other systems are reviewed and are negative PMFSH Past Medical History Attestation statement: The following information was validated with the patient. Source: old records reviewed Medical History Anxiety Asperger syndrome Bipolar 1 disorder Bipolar 1 disorder, depressed, severe Social History Social History Household Members: Other Household Members Other:: in and out of hotel's Do you presently have visiting nurse or other home services: No Alcohol intake: current Alcohol intake frequency: holidays/special occasions only Alcohol type: beer Advance Directives: No Advance Directives Information Provided: No service: No Sexual orientation: Straight/Heterosexual Physical Exam Vital Signs: Vital Signs: Last Vital Signs Temp 100.1 F 12/10/21 19:28 Pulse 88 12/10/21 19:28 Resp 16 12/10/21 19:28 BP 122/64 12/10/21 19:28 Pulse Ox 99 12/10/21 19:28 O2 Del Method 12/10/21 19:28 BMI result Body Mass Index 45.1 Appearance: Alert.?Oriented to person, place and time. No acute distress.?Normal affect. Eyes: Pupils equal, round and reactive to light.? ENT: Pharynx normal.?? Neck: Normal inspection.? Neck supple.?? CVS: Heart sounds normal. Normal heart rate and rhythm.? Pulses normal.?? Respiratory: No respiratory distress.? Lung sounds clear to auscultation bilaterally?? Abdomen: Soft and non-tender. Normoactive bowel sounds. No pulsatile mass.?? Skin: Skin warm and dry.? Normal skin color.? Bilateral lower extremities with erythematous scabbed rash. Left lower extremity with more extensive erythema, warmth to touch, and circumferential Extremities: 2+ pitting lower extremity edema bilaterally.? No calf ttp? Neuro: Moves all extremities spontaneously. Sensation intact bilaterally. No motor deficits. Ambulates with normal steady gait. Course Course Course Narrative: Patient is 31-year-old male presents emergency department for evaluation of her rash to the bilateral lower extremities. Addition has been having fevers associated with this. He was just evaluated at [facility] yesterday. Received partial medical record from [facility], including patient discharge instructions with diagnosis of dehydration and venous insufficiency. Serum labs significant for WBC 30.9 with a left shift, creatinine of 1.35, otherwise unremarkable CMP, and normal CK. elevated lactic acid initially at 2.9, with 5 hour follow-up of 2.7. A Lyme antibody negative, urinalysis without evidence of infection. Had a CT of the abdomen and pelvis with contrast, CT of the chest, ultrasound of the gallbladder which were reportedly normal according the patient but readings/results unavailable at this time. Serum labs obtained in triage reveal WBC of 16.3, and overall unremarkable BMP. No prior history of DVT/PE, no risk factors, denies IV drug usage. Physical exam seems most consistent with contact dermatitis with superimposed cellulitis. Discussed these findings with patient, advised/for treatment with cephalexin, skin to the left lower extremity marked for erythema bowel injury, discussed worrisome signs and symptoms that he should return back to emergency department for. All questions were answered, he was discharged home in stable condition, ambulatory with a steady gait. MDM - Skin/Abscess/Foreign Bdy Lab Data Result diagrams: 12/10/21 16:14 12/10/21 16:14 Labs: Lab Results 12/10/21 12/10/21 Range/Units 16:14 16:14 WBC 16.3 H (4.8-10.8) X10*3/uL RBC 4.81 (4.60-5.80) X10*6/uL Hgb 13.6 L (14.0-18.0) g/dl Hct 40.8 L (42.0-52.0) % MCV 84.8 (80.0-98.0) fL MCH 28.3 (27.0-33.0) pg MCHC 33.3 (31.0-36.0) g/dl RDW 13.0 (11.0-16.0) % Plt Count 213 (160-400) X10*3/uL MPV 11.1 (9.4-12.4) fL Immature Gran % (Auto) 0.5 H (0.0-0.4) % Neut % (Auto) 85.7 H (45-73) % Lymph % (Auto) 6.5 L (20-40) % [place] % (Auto) 6.2 (2-11) % Eos % (Auto) 0.9 (0-4) % Baso % (Auto) 0.2 (0-2) % Lymph # (Auto) 1.1 L (1.2-4.9) X10*3/uL [place] # (Auto) 1.0 (0.1-1.2) X10*3/uL Eos # (Auto) 0.1 (0.0-0.4) X10*3/uL Baso # (Auto) 0.0 (0.0-0.2) X10*3/uL Abs Immat Gran (auto) 0.08 H (0.00-0.03) X10*3/uL Absolute Neuts (auto) 14.0 H (2.0-8.3) x10*3/uL Absolute Nucleated RBC 0.000 (0.0-0.012) X10*3/uL Nucleated RBC % (auto) 0.0 (0.0-0.2) /100WBC Sodium 137 (135-145) mmol/L Potassium 3.5 (3.3-5.1) mmol/L Chloride 104 (96-108) mmol/L Carbon Dioxide 23 (22-29) mmol/L Anion Gap 14 (12-20) BUN 7 L (9-16) mg/dL Creatinine 0.85 (0.5-1.4) mg/dL Estim Creat Clear Calc 160.1 Estimated GFR > 60 Random Glucose 99 (60-115) mg/dL Calcium 8.8 D (8.4-10.2) mg/dL Discharge Plan Discharge Clinical Impression: Cellulitis Patient Disposition: Home, Self-Care Instructions: Cellulitis (ED) Additional Instructions: You have been given a prescription for cephalexin which is an antibiotic, please complete this entire course. Be sure to rest when you can, elevate your legs May return to emergency department with any new worsening symptoms or concerns. Please follow-up with your primary care provider for further evaluation. Prescriptions: New cephalexin 500 mg capsule 500 mg PO QID 7 Days Qty: 28 0RF No Action quetiapine 25 mg Tablet 25 mg PO BEDTIME 30 Days Qty: 30 1RF clonidine HCl 0.1 mg Tablet 0.1 mg PO BID PRN (Reason: Anxiety) 30 Days Qty: 30 1RF Protocol: Hold for SBP< HOLD for SBP < : 90 lithium carbonate 300 mg Tablet Extended Release 600 mg PO BID 30 Days Qty: 120 1RF lamotrigine 25 mg Tablet 25 mg PO BID 30 Days Qty: 60 1RF Interventions: ED Discharge Assessment Last Done: 12/10/21 21:00 Discharge Date/Time: 12/10/21 21:00
[2021-12-10 19:28] VITALS: BP 122/64; PULSE 88; RESP 16; TEMP 37.8; O2SAT 99
[2021-12-10] MEDS: Ibuprofen 600 MG TABLET PO (19:54)
== END 2021-12-10 21:00 | disposition home or self-care (01) ==
PROVIDERS: Emergency Provider Student in an Organized Health Care Education/Training Program
DX: L03.116 Cellulitis of left lower limb (principal); R21 Rash and other nonspecific skin eruption; R60.0 Localized edema; R50.9 Fever, unspecified
CPT/HCPCS: 36415; 80048; 85025; 99283; 99284

== ENCOUNTER 2023-01-01 16:43 | Inpatient (IN) | payer OTHER, SELFPAY ==
--- OUTSIDE RECORDS SUMMARY | 2023-01-01 16:46 | XMS_ITS | Continuity of Care Document ---
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 Refills 0, Maintenance, Anxiety, 05/06/19 10:28:00 EST, Route to Pharmacy Electronically, [id number], 168, cm, 05/06/19 8:22:00 EST, Height, 94, kg, 04/26/19 23:45:00 EST, D... Start Date: 05/06/19 Status: Ordered lamotrigine 25 mg oral tablet See Instructions, 1 tablet PO QAM for 5 more days, then on 05/12/19 increase to 2 tablets PO QAM., # 55 tablet, Refills 0, Tot. Refills 0, Maintenance, 05/06/19 10:29:00 EST, Instructions Replace Required Details, Route to [facility], [facility] Start Date: 05/06/19 Status: Ordered lithium 600 mg oral capsule = 600 mg, By Mouth, 2 times a day, # 60 capsule, 0 Refills, Maintenance, 05/06/19 10:29:00 EST, Capsule, [id number], 168, cm, 05/06/19 8:22:00 EST, Height, 94, kg, 04/26/19 23:45:00 EST, Dry Weight Start Date: 05/06/19 Status: Ordered SEROquel 50 mg oral tablet See Instructions, take 1 to 2 tablets at bedtime, # 60 tablet, 0 Refills, Maintenance, 05/06/19 10:35:00 EST, Tablet, [id number], 168, cm, 05/06/19 8:22:00 EST, Height, 94, kg, 04/26/19 23:45:00 EST, Dry Weight Start Date: 05/06/19 Status: Ordered Problem List Condition Effective Dates Status Health Status Inform ant Anxiety state NOS(Confirmed) Active Asperger's syndrome(Confirmed) Active Depressive disorder(Confirmed) Active Induced psychotic disorder(Confirmed) Active
--- OUTSIDE RECORDS SUMMARY | 2023-01-01 16:46 | XMS_ITS | Continuity of Care Document ---
Author Name Unknown Organization [facility] Address [address] [place] [address]- Care Team Providers Care Science And Operations Officer Name Role Phone Not on Staff, PCP Primary Care Physician Unavail able Encounter [facility] Date(s): 04/26/19 - 05/06/19 [facility] [address] [place] [address]- [facility] Discharge Disposition: A-D/C Home Attending Physician: Asha Krueger MD Admitting Physician: Asha Krueger MD Referring Physician: Not on Staff, Referring MD Allergies, Adverse Reactions, Alerts Substance Reaction Severity Status NKA Active Immunizations Given and Recorded Vaccine Date Status Refusal Reason influenza virus vaccine, inactivated 1 04/28/19 Gi moises 1Result Comment: research program assistant not listed Medications cloNIDine 0.1 mg oral tablet 0.1 mg, 1, tablet, By Mouth, Daily, PRN, # 30 tablet, Refills 0, Tot. Refills 0, Maintenance, Anxiety, 05/06/19 10:28:00 EST, Route to Pharmacy Electronically, [id number], 168, cm, 05/06/19 8:22:00 EST, [...] 0 Refills, Maintenance, 05/06/19 10:29:00 EST, Capsule, [id number], 168, cm, 05/06/19 8:22:00 EST, Height, 94, kg, 04/26/19 23:45:00 EST, Dry Weight Start Date: 05/06/19 Status: Ordered SEROquel 50 mg oral tablet See Instructions, take 1 to 2 tablets at bedtime, # 60 tablet, 0 Refills, Maintenance, 05/06/19 10:35:00 EST, Tablet, [id number], 168, cm, 05/06/19 8:22:00 EST, Height, 94, kg, 04/26/19 23:45:00 EST, Dry Weight Start Date: 05/06/19 Status: Ordered Problem List Condition Effective Dates Status Health Status Inform ant Anxiety state NOS(Confirmed) Active Asperger's syndrome(Confirmed) Active Depressive disorder(Confirmed) Active Induced psychotic disorder(Confirmed) Active Vital Signs Most recent to oldest [Reference Range]: 1 2 3 Height 168 cm (05/06/19 8:22 AM) 168 cm (05/05/19 4:20 PM) 168 cm (05/05/19 10:21 AM) Weight 94 kg (05/03/19 10:02 AM) 94 kg (04/26/19 11:45 PM) Oxygen Saturation [94-100 %] 99 % (05/05/19 4:20 PM) 100 % (05/05/19 10:21 AM) 98 % (05/04/19 4:00 PM) Pulse Rate [55-90 bpm] 79 bpm (05/06/19 8:22 AM) 80 bpm (05/05/19 4:20 PM) 76 bpm (05/05/19 10:21 AM) Body Mass Index [18.5-24.99] 33.3 *>HHI* (04/26/19 11:45 PM) Blood Pressure [90-138/55-84 mm Hg] 126/71mm Hg (05/06/19 8:22 AM) 124/68mm Hg (05/05/19 4:20 PM) 129/76mm Hg (05/05/19 10:21 AM) Respiratory Rate [16-30 br/min] 16 br/min (05/06/19 8:22 AM) 20 br/min (05/05/19 7:07 PM) 18 br/min (05/05/19 4:20 PM) Temperature [96.8-100.4 DegF] 98.1 DegF (05/06/19 8:22 AM) 97.0 DegF (05/05/19 4:20 PM) 98.7 DegF (05/05/19 10:21 AM) Mode of Delivery (Oxygen) Room air (05/05/19 4:20 PM) Room air (05/04/19 4:00 PM) Room air (05/03/19 3:45 PM) Blood pressure sites Arm, right (05/06/19 8:22 AM) Arm, right (05/05/19 4:20 PM) Arm, right (05/05/19 10:21 AM) Temperature Route Oral (05/05/19 4:20 PM) Oral (05/04/19 4:00 PM) Oral (05/03/19 3:45 PM) Dry Weight 94 kg (04/26/19 11:45 PM) Weight Obtained Via Standing scale (04/26/19 11:45 PM) Dry Weight Obtained Via Standing scale (04/26/19 11:45 PM) Sensory deficits None (04/26/19 11:45 PM) Mobility assistance Independent (04/26/19 11:45 PM)
[2023-01-01 17:02] VITALS: BP 134/68; PULSE 71; RESP 16; TEMP 36.4; O2SAT 99
[2023-01-01 18:23] VITALS: BMI 42.7
--- NOTE | 2023-01-01 18:37 | PC.ADMIT ---
Patient is a 32 yo alert and oriented male who was admitted after presenting to the [facility] ED for suicidal ideation and feeling manic. Patient was able to participate with the admission process and exhibited a linear, organized, and future focused thought process. Patient has been off of his lithium and seroquel for approximately a year and reports significant recent life stressors which have pushed him over the edge. Patient has been homeless for 3 years but recently had the car he was living in [facility]. Patient states significant depression and anxiety, tearful during admission process, states, I don't remember what okay felt like . Reports that he feels safe on the unit and will be able to seek out staff if he has thoughts of self harm and denies a current plan for self harm. Skin check performed by this RN and MHA and patient oriented to unit.
[2023-01-02 07:47] LABS: Estimated Average Glucose 97 mg/dL
[2023-01-02 07:48] LABS: Lithium < 0.10 mmol/L (0.60-1.20)
[2023-01-02 07:53] LABS: Cholesterol 149 mg/dL (<200); HDL Cholesterol 36 mg/dL (>40); LDL Cholesterol Calculated 102 mg/dL (<100); Triglycerides 59 mg/dL (<150)
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
[2023-01-02 11:58] VITALS: BP 120/67; PULSE 97; RESP 16; TEMP 36.6; O2SAT 98
--- NOTE | 2023-01-02 12:08 | P.CONHOSP_ITS ---
History of Present Illness Data of Consult Service Date: 01/02/23 Requesting physician: Isidro Santoyo Primary Care Provider: Unknown Physician HPI Reason for consult: medical H&P 32-year-old male with history of bipolar disorder, Asperger's syndrome, migraines admitted to Psychiatry with consult placed to hospitalist service for medical H and P. He reports a chronic rash on the lower legs bilaterally. States has been present for over a year and has occasionally been treated for cellulitis. Denies any pain but does endorse per dose. There is slight warmth but no significant erythema. Patient is afebrile without any leukocytosis. He reports occasional alcohol use and denies any illicit drug use or cigarette use. Review of Systems Review of Systems: General: No fevers, malaise, unintentional weight loss HEENT: No blurred vision, diplopia. No sore throat, nasal congestion, rhinorrh ea, sinus pain, ear pain Cardiovascular: No chest pain, palpitations, or leg edema Respiratory: No shortness of breath, wheezing, cough GI: No abdominal pain, nausea, vomiting, diarrhea, constipation, melena, hematochezia : No dysuria, hematuria, increased urinary frequency, decreased urinary output MSK: No myalgia, back pain Neuro: No headaches, weakness, paresthesias Skin: +rash ble PMFSH Medical History (Updated 01/02/23 @ 12:12 by PB Carrington) Anxiety Asperger syndrome Bipolar 1 disorder Bipolar 1 disorder, depressed, severe Chronic dermatitis Social History Household Members: None Household Members Other:: in and out of hotel's Do you presently have visiting nurse or other home services: No Alcohol intake: current Alcohol intake frequency: holidays/special occasions only Alcohol type: beer Patient Tobacco Use Status: Never used Tobacco Smoked in Last 30 Days: No e-Cigarette/Vaping Use: Never Used Patient Interested in Nicotine Replacement: No Patient Given Instructions on How to Stop Smoking: No Second Hand Smoke Exposure: No Use of substances other than those prescribed or required for medical reasons: No Currently Displaying Signs/Symptoms of Drug Intoxication Withdrawal: No Any prior treatment program specific to substance use: No Have you been hit, kicked, punched, or otherwise hurt by someone within the past year? If so, by whom?: No Do you feel safe in your current relationship?: No Current Relationship Is there a partner from a previous relationship who is making you feel unsafe now?: No Are you made to feel afraid or neglected: No Spiritual Healthcare Practices: Denies Rastafari Healthcare Practices: Denies Cultural Healthcare Practices: Denies Advance Directives: No Advance Directives Information Provided: No Do you have thoughts of harming others: None Do you have a plan to hurt others: No Plan Recently lost weight without trying: No How much weight loss: Not applicable Eating poorly because of decreased appetite: No Nutrition screen score: 0 Nutrition Risks: No Nutritional Risk Poor oral hygiene: No service: No Sexual orientation: Straight/Heterosexual Meds Allergies Allergy/AdvReac Type Severity Reaction Status Date / Time No Known Allergies Allergy Verified 05/24/20 18:10 [No Known Allergies*] Active Medications: Current Medications Acetaminophen (Acetaminophen 325 Mg Tablet) 650 mg PO Q6H PRN PRN Reason: Headache/Pain Mild Scale (1-3) Al Hydroxide/Mg Hydroxide (Magnesium Hydrox/Alum Hydrox 30 Ml Oral.Susp) 30 ml PO Q6H PRN PRN Reason: Heartburn/Nausea Clonidine HCl (Clonidine Hcl 0.1 Mg Tablet) 0.1 mg PO QID PRN; Protocol PRN Reason: anxiety Hydroxyzine HCl (Hydroxyzine Hcl 25 Mg Tablet) 25 mg PO Q6H PRN PRN Reason: Anxiety [place] Carbonate ([place] Carbonate Er 300 Mg Tablet.Er) 300 mg PO BEDTIME TERRENCE Last Admin: 01/01/23 23:40 Dose: Not Given Magnesium Hydroxide (Milk Of Magnesia 30 Ml Oral.Susp) 30 ml PO DAILY PRN PRN Reason: Constipation Nicotine Polacrilex (Nicotine Polacrilex 2 Mg Gum) 4 mg BUCCAL Q2H PRN PRN Reason: Nicotine Cravings Olanzapine (Olanzapine 5 Mg Tablet) 5 mg PO TID PRN PRN Reason: agitation Quetiapine Fumarate (Quetiapine Fumarate 25 Mg Tablet) 25 mg PO BID TERRENCE Trazodone HCl (Trazodone Hcl 50 Mg Tablet) 50 mg PO BEDTIME MRX1 PRN PRN Reason: Insomnia Home Medications Medication Instructions Recorded Confirmed Last Taken Type No Known Home Meds 01/01/23 01/01/23 Unknown History Physical Exam Vital Signs and Narrative: Vital Signs: Last Vital Signs Temp 97.9 F 01/02/23 11:58 Pulse 97 08/29/23 11:58 Resp 16 01/02/23 11:58 BP 120/67 01/02/23 11:58 Pulse Ox 98 01/02/23 11:58 O2 Del Method Room Air 01/02/23 11:58 BMI result Body Mass Index 42.7 Constitutional - Awake and Alert, No apparent distress Eyes - PERRLA, EOMI Cardiovascular - S1S2, RRR, No edema Respiratory - Normal lung expansion, Normal respiratory effort, No respiratory distress, CTA bilaterally Gastrointestinal - NT / ND; +BS; No rebound or guarding Extremities - no calf tenderness bilaterally, no swelling Skin - Warm/Dry. Poorly demarcated, Raised, slightly scaling violaceous rash of the bilateral lower extremity right greater than left. See photo Neurological - Alert & oriented x3, CN II-XII in tact, 5/5 strength BUE and BLE Psychological - Appropriate affect LLE RLE Results Labs Labs: Laboratory Results - last 24 hr 01/02/23 01/02/23 01/02/23 07:22 07:22 07:22 Estimat Average Glucose 97 Hemoglobin A1c % 5.0 Triglycerides 59 Cholesterol 149 LDL Cholesterol, Calc 102 H HDL Cholesterol 36 L [place] < 0.10 L Assessment and Plan (1) Routine medical exam: Status: Acute (2) Chronic dermatitis: Status: Acute Plan 32-year-old male with history of bipolar disorder, Asperger's syndrome, migraines admitted to Psychiatry with consult placed to hospitalist service for medical H and P. #Mood disorder -plan per psychiatry #Chronic dermatitis -appears consistent with a venous stasis dermatitis -No evidence of cellulitis -Apply triamcinolone cream twice daily about 1 hour before applying a maleate moisturizer -keep skin breaks covered and use compression stockings -discussed the chronic nature of his skin condition but recommend outpatient follow-up with Dermatology -discussed management to prevent worsening of condition including limiting time sedentary, increasing locking, compression stockings, weight loss Reviewed labs from ED including CBC, BMP, urine tox screen which are all reassuring Thank you for allowing me to participate in this consult. Signing off at this time. Please do not hesitate to call for further questions. Time Spent With Patient Time: Total time managing care of this patient today ____ minutes.
[2023-01-02] MEDS: QUEtiapine Fumarate 25 MG TABLET PO ×2 (12:52→21:58)
[2023-01-02 20:19] VITALS: BP 123/75; PULSE 74; RESP 16; TEMP 36.6; O2SAT 97
[2023-01-02] MEDS: Lithium Carbonate ER 300 MG TABLET.ER PO (21:57)
[2023-01-02] MEDS: Triamcinolone Acet 0.1 % Cream 15 GM TUBE 1 APPL TOPICAL (21:58)
[2023-01-02] MEDS: Mineral Oil/Petrolatum,White 106 GM Tube 1 APPL TOPICAL (21:58)
[2023-01-03 08:39] VITALS: BP 111/64; PULSE 78; RESP 18; TEMP 36.6; O2SAT 95
--- NOTE | 2023-01-03 09:06 | HO.PSYCHPN ---
Subjective Subjective Date of Service: 01/03/23 Reason For Visit: F31.9Unspecified Bipolar and Related [id number] Subjective Notes: Conditional Voluntary Interim History: Reviewed in team and . Patient presents as guarded and irritable today. Patient reports feeling fine . Pt c/o of staff opening my door at night and not letting me sleep . Patient continues to report passive suicidal ideation and stated, I'm always suicidal but I would never act on it because that would be stupid . Patient reports he does not want to attend groups d/t his belief that they are not helpful . Pt stated, groups don't work; I don't want to hear people preaching to me. I don't want to fucking hear about it. No one better expect me to go . When T/W informed patient that groups are not mandatory but encouraged; pt stated, it can be encouraged for them to shove it up their butt. I don't give a shit about anyone else here . Patient also stated that he will refuse to meet with someone in-person for his outpatient psychiatric appointments. Pt stated, I won't go to any in person appointments because gas is expensive and if I have to then I'll just end up coming back to the hospital . child protective services social worker was notified. Medication Compliance: Yes Side effects from medications: No Attending Groups: Intermittent Review of Systems Review of Systems General: No fevers, malaise, unintentional weight loss HEENT: No blurred vision, diplopia. No sore throat, nasal congestion, rhinorrhea, sinus pain, ear pain Cardiovascular: No chest pain, palpitations, or leg edema Respiratory: No shortness of breath, wheezing, cough GI: No abdominal pain, nausea, vomiting, diarrhea, constipation, melena, hematochezia : No dysuria, hematuria, increased urinary frequency, decreased urinary output MSK: No myalgia, back pain Neuro: No headaches, weakness, paresthesias Skin: +rash ble Constitutional: Reports as per HPI Eyes: Reports as per HPI Reports as per HPI Cardiovascular: Reports as per HPI Respiratory: Reports as per HPI Gastrointestinal: Reports as per HPI Genitourinary: Reports as per HPI Musculoskeletal: Reports as per HPI Skin/Breast: Reports as per HPI Reports as per HPI Psychiatric: Reports as per HPI Endocrine: Reports as per HPI Hematologic/Lymphatic: Reports as per HPI Allergic/Immunologic: Reports as per HPI Mental Status Exam Mental Status Exam Narrative: Pt is alert and oriented; behavior is guarded and irritable; dressed in hospital attire; mood is described as fine ; eye contact appropriate; Speech is normal rate, volume loud at times, not pressured; no psychomotor agitation/retardation present; thought process is organized; Thought content is on tx; otherwise pertinent to relevant topics and without any delusional content, paranoid ideations or grandiosity; denies HI. Pt reports passive suicidal ideation. There is no evidence of perceptual disturbance. Patients insight and judgment are poor. Diagnostics Vital Signs (24Hr): Vital Signs - 24 hr 01/02/23 11:58 01/02/23 20:19 01/03/23 08:39 Temperature 97.9 F 98 F 97.9 F Pulse Rate 97 74 78 Respiratory Rate 16 16 18 Blood Pressure 120/67 123/75 111/64 Pulse Oximetry 98 97 95 Oxygen Delivery Method Room Air Room Air Room Air BMI result Body Mass Index 42.7 Labs Labs: Laboratory Results - last 48 hr 01/02/23 01/02/23 01/02/23 07:22 07:22 07:22 Estimat Average Glucose 97 Hemoglobin A1c % 5.0 Triglycerides 59 Cholesterol 149 LDL Cholesterol, Calc 102 H HDL Cholesterol 36 L [place] < 0.10 L Medications Medications Current Medications Acetaminophen (Acetaminophen 325 Mg Tablet) 650 mg PO Q6H PRN PRN Reason: Headache/Pain Mild Scale (1-3) Al Hydroxide/Mg Hydroxide (Magnesium Hydrox/Alum Hydrox 30 Ml Oral.Susp) 30 ml PO Q6H PRN PRN Reason: Heartburn/Nausea Clonidine HCl (Clonidine Hcl 0.1 Mg Tablet) 0.1 mg PO QID PRN; Protocol PRN Reason: anxiety Hydroxyzine HCl (Hydroxyzine Hcl 25 Mg Tablet) 25 mg PO Q6H PRN PRN Reason: Anxiety [place] Carbonate ([place] Carbonate Er 300 Mg Tablet.Er) 300 mg PO BEDTIME TERRENCE Last Admin: 01/02/23 21:57 Dose: 300 mg Magnesium Hydroxide (Milk Of Magnesia 30 Ml Oral.Susp) 30 ml PO DAILY PRN PRN Reason: Constipation Multi-Ingred Cream/Lotion/Oil/Oint (Mineral Oil/Petrolatum,White 106 Gm Tube) 1 appl TOPICAL BID TERRENCE; Protocol Last Admin: 01/03/23 08:40 Dose: Not Given Nicotine Polacrilex (Nicotine Polacrilex 2 Mg Gum) 4 mg BUCCAL Q2H PRN PRN Reason: Nicotine Cravings Olanzapine (Olanzapine 5 Mg Tablet) 5 mg PO TID PRN PRN Reason: agitation Quetiapine Fumarate (Quetiapine Fumarate 25 Mg Tablet) 25 mg PO BEDTIME TERRENCE Last Admin: 01/02/23 21:58 Dose: 25 mg Trazodone HCl (Trazodone Hcl 50 Mg Tablet) 50 mg PO BEDTIME MRX1 PRN PRN Reason: Insomnia Triamcinolone Acetonide (Triamcinolone Acet 0.1 % Cream 15 Gm Tube) 1 appl TOPICAL BID TERRENCE; Protocol Last Admin: 01/03/23 08:40 Dose: Not Given Allergies Allergies Allergy/AdvReac Type Severity Reaction Status Date / Time No Known Allergies Allergy Verified 05/24/20 18:10 [No Known Allergies*] Assessment & Plan Assessment & Plan (1) Bipolar 1 disorder, depressed, moderate: Status: Acute Code(s): F31.32 - Bipolar disorder, current episode depressed, moderate (2) Asperger syndrome: Status: Acute Code(s): F84.5 - Asperger's syndrome Plan Patient is a 32 year old male with hx of Bipolar d/o and Asperger syndrome who self presented to [facility] ER d/t suicidal ideation secondary to reported increased loree and medication noncompliance. Plan: CV 15 minute safety checks Referral for outpatient prescriber Start: Seroquel 25mg PO Bedtime [place] ER 300mg PO bedtime 01/03: Patient guarded and irritable today. Pt c/o of staff opening my door at night and not letting me sleep . Patient continues to report passive suicidal ideation and stated, I'm always suicidal but I would never act on it because that would be stupid . Patient reports he does not want to attend groups d/t his belief that they are not helpful . Pt stated, groups don't work; I don't want to hear people preaching to me. I don't want to fucking hear about it. No one better expect me to go . When T/W informed patient that groups are not mandatory but encouraged; pt stated, it can be encouraged for them to shove it up their butt. I don't give a shit about anyone else here . Patient also stated that he will refuse to meet with someone in-person for his outpatient psychiatric appointments. Seroquel increased to 100mg PO bedtime. [place] increased to 300mg PO BID. [place] level to be drawn on 01/07. Patient educated on: diagnosis, medication risk/benefits and therapeutic strategies Informed Consent: understands Reason for continued inpatient stay Substantial Risk for: med/psych decompensation Time Spent With Patient Time: Total time managing care of this patient today _30___ minutes.
[2023-01-03] MEDS: Lithium Carbonate ER 300 MG TABLET.ER PO ×2 (13:38→20:50)
[2023-01-03 20:50] VITALS: BP 136/73; PULSE 82; RESP 16; TEMP 36.8; O2SAT 99
[2023-01-03] MEDS: QUEtiapine Fumarate 100 MG TABLET PO (20:51)
[2023-01-04 06:00] VITALS: BP 116/64; PULSE 60; RESP 16; TEMP 36.8; O2SAT 96
--- NOTE | 2023-01-04 09:16 | P.PNPSI_ITS ---
Subjective Subjective Date of Service: 01/04/23 Reason For Visit: F31.9Unspecified Bipolar and Related [id number] Subjective Notes: Conditional Voluntary Interim History: Reviewed in team and Dr. Cruz. Patient presents calm and cooperative today. Patient stated, I am starting to feel better with the medications. It makes me less angry and irritable. With the meds, I'm able to focus on other things . Pt reports he would like to go to respite from here and be referred to outpatient providers. Patient stated, It's been a long time since I've felt better . Medication Compliance: Yes Side effects from medications: No Attending Groups: Intermittent Review of Systems Review of Systems General: No fevers, malaise, unintentional weight loss HEENT: No blurred vision, diplopia. No sore throat, nasal congestion, rhinorrhea, sinus pain, ear pain Cardiovascular: No chest pain, palpitations, or leg edema Respiratory: No shortness of breath, wheezing, cough GI: No abdominal pain, nausea, vomiting, diarrhea, constipation, melena, hematochezia : No dysuria, hematuria, increased urinary frequency, decreased urinary output MSK: No myalgia, back pain Neuro: No headaches, weakness, paresthesias Skin: +rash ble Constitutional: Reports as per HPI Eyes: Reports as per HPI Reports as per HPI Cardiovascular: Reports as per HPI Respiratory: Reports as per HPI Gastrointestinal: Reports as per HPI Genitourinary: Reports as per HPI Musculoskeletal: Reports as per HPI Skin/Breast: Reports as per HPI Reports as per HPI Psychiatric: Reports as per HPI Endocrine: Reports as per HPI Hematologic/Lymphatic: Reports as per HPI Allergic/Immunologic: Reports as per HPI Mental Status Exam Mental Status Exam Narrative: Pt is alert and oriented; behavior is cooperative and calm; dressed in casual attire; mood is described as better ; eye contact appropriate; Speech is normal rate, volume and prosody and not pressured; no psychomotor agitation/retardation present; thought process is organized and goal directed; Thought content is on tx; otherwise pertinent to relevant topics and without any delusional content, paranoid ideations or grandiosity; denies SI/HI. There is no evidence of perceptual disturbance. Patients insight and judgment are poor but improving. Diagnostics Vital Signs (24Hr): Vital Signs - 24 hr 01/03/23 20:50 Temperature 98.2 F Pulse Rate 82 Respiratory Rate 16 Blood Pressure 136/73 Pulse Oximetry 99 Oxygen Delivery Method Room Air BMI result Body Mass Index 42.7 Medications Medications Current Medications Acetaminophen (Acetaminophen 325 Mg Tablet) 650 mg PO Q6H PRN PRN Reason: Headache/Pain Mild Scale (1-3) Al Hydroxide/Mg Hydroxide (Magnesium Hydrox/Alum Hydrox 30 Ml Oral.Susp) 30 ml PO Q6H PRN PRN Reason: Heartburn/Nausea Hydroxyzine HCl (Hydroxyzine Hcl 25 Mg Tablet) 25 mg PO Q6H PRN PRN Reason: Anxiety [place] Carbonate ([place] Carbonate Er 300 Mg Tablet.Er) 300 mg PO BID TERRENCE Last Admin: 01/03/23 20:50 Dose: 300 mg Magnesium Hydroxide (Milk Of Magnesia 30 Ml Oral.Susp) 30 ml PO DAILY PRN PRN Reason: Constipation Multi-Ingred Cream/Lotion/Oil/Oint (Mineral Oil/Petrolatum,White 106 Gm Tube) 1 appl TOPICAL BID TERRENCE; Protocol Last Admin: 01/03/23 20:52 Dose: Not Given Olanzapine (Olanzapine 5 Mg Tablet) 5 mg PO TID PRN PRN Reason: agitation Quetiapine Fumarate (Quetiapine Fumarate 100 Mg Tablet) 100 mg PO BEDTIME TERRENCE Last Admin: 01/03/23 20:51 Dose: 100 mg Trazodone HCl (Trazodone Hcl 50 Mg Tablet) 50 mg PO BEDTIME MRX1 PRN PRN Reason: Insomnia Triamcinolone Acetonide (Triamcinolone Acet 0.1 % Cream 15 Gm Tube) 1 appl TOPICAL BID TERRENCE; Protocol Last Admin: 01/03/23 20:53 Dose: Not Given Allergies Allergies Allergy/AdvReac Type Severity Reaction Status Date / Time No Known Allergies Allergy Verified 05/24/20 18:10 [No Known Allergies*] Assessment & Plan Assessment & Plan (1) Bipolar 1 disorder, depressed, moderate: Status: Acute Code(s): F31.32 - Bipolar disorder, current episode depressed, moderate (2) Asperger syndrome: Status: Acute Code(s): F84.5 - Asperger's syndrome Plan Patient is a 32 year old male with hx of Bipolar d/o and Asperger syndrome who self presented to [facility] ER d/t suicidal ideation secondary to reported increased loree and medication noncompliance. Plan: CV 15 minute safety checks Referral for outpatient prescriber Start: Seroquel 25mg PO Bedtime [place] ER 300mg PO bedtime 01/03: Patient guarded and irritable today. Pt c/o of staff opening my door at night and not letting me sleep . Patient continues to report passive suicidal ideation and stated, I'm always suicidal but I would never act on it because that would be stupid . Patient reports he does not want to attend groups d/t his belief that they are not helpful . Pt stated, groups don't work; I don't want to hear people preaching to me. I don't want to fucking hear about it. No one better expect me to go . When T/W informed patient that groups are not mandatory but encouraged; pt stated, it can be encouraged for them to shove it up their butt. I don't give a shit about anyone else here . Patient also stated that he will refuse to meet with someone in-person for his outpatient psychiatric appointments. Seroquel increased to 100mg PO bedtime. [place] increased to 300mg PO BID. [place] level to be drawn on 01/07. 01/04: Patient presents calm and cooperative today. Patient stated, I am starting to feel better with the medications. It makes me less angry and irritable. With the meds, I'm able to focus on other things . Pt reports he would like to go to respite from here and be referred to outpatient providers. Patient stated, It's been a long time since I've felt better . Patient educated on: diagnosis, medication risk/benefits and therapeutic strategies Informed Consent: understands Reason for continued inpatient stay Substantial Risk for: med/psych decompensation Time Spent With Patient Time: Total time managing care of this patient today _30___ minutes.
[2023-01-04] MEDS: Lithium Carbonate ER 300 MG TABLET.ER PO ×2 (09:28→21:48)
[2023-01-04 21:38] VITALS: BP 127/81; PULSE 70; RESP 18; TEMP 36.9; O2SAT 97
[2023-01-04] MEDS: QUEtiapine Fumarate 100 MG TABLET PO (21:48)
--- NOTE | 2023-01-05 08:55 | HO.PSYCHPN ---
Subjective Subjective Date of Service: 01/05/23 Reason For Visit: F31.9Unspecified Bipolar and Related [id number] Subjective Notes: Conditional Voluntary Interim History: Reviewed in team and Dr. Cruz. Patient reports feeling good today. Pt reports he feels better than when I first came in here . Pt stated, when I leave here I'm going to try to get my car back and go back to work . Plan is for patient to be discharged to respite. pt attending groups. Medication Compliance: Yes Side effects from medications: No Attending Groups: Yes Review of Systems Review of Systems General: No fevers, malaise, unintentional weight loss HEENT: No blurred vision, diplopia. No sore throat, nasal congestion, rhinorrhea, sinus pain, ear pain Cardiovascular: No chest pain, palpitations, or leg edema Respiratory: No shortness of breath, wheezing, cough GI: No abdominal pain, nausea, vomiting, diarrhea, constipation, melena, hematochezia : No dysuria, hematuria, increased urinary frequency, decreased urinary output MSK: No myalgia, back pain Neuro: No headaches, weakness, paresthesias Skin: +rash ble Constitutional: Reports as per HPI Eyes: Reports as per HPI Reports as per HPI Cardiovascular: Reports as per HPI Respiratory: Reports as per HPI Gastrointestinal: Reports as per HPI Genitourinary: Reports as per HPI Musculoskeletal: Reports as per HPI Skin/Breast: Reports as per HPI Reports as per HPI Psychiatric: Reports as per HPI Endocrine: Reports as per HPI Hematologic/Lymphatic: Reports as per HPI Allergic/Immunologic: Reports as per HPI Mental Status Exam Mental Status Exam Narrative: Pt is alert and oriented; behavior is cooperative and calm; dressed in casual attire; mood is described as better ; eye contact appropriate; Speech is normal rate, volume and prosody and not pressured; no psychomotor agitation/retardation present; thought process is organized and goal directed; Thought content is on tx; otherwise pertinent to relevant topics and without any delusional content, paranoid ideations or grandiosity; denies SI/HI. There is no evidence of perceptual disturbance. Patients insight and judgment are poor but improving. Diagnostics Vital Signs (24Hr): Vital Signs - 24 hr 01/04/23 21:38 Temperature 98.4 F Pulse Rate 70 Respiratory Rate 18 Blood Pressure 127/81 Pulse Oximetry 97 Oxygen Delivery Method Room Air BMI result Body Mass Index 42.7 Medications Medications Current Medications Acetaminophen (Acetaminophen 325 Mg Tablet) 650 mg PO Q6H PRN PRN Reason: Headache/Pain Mild Scale (1-3) Al Hydroxide/Mg Hydroxide (Magnesium Hydrox/Alum Hydrox 30 Ml Oral.Susp) 30 ml PO Q6H PRN PRN Reason: Heartburn/Nausea Hydroxyzine HCl (Hydroxyzine Hcl 25 Mg Tablet) 25 mg PO Q6H PRN PRN Reason: Anxiety [place] Carbonate ([place] Carbonate Er 300 Mg Tablet.Er) 300 mg PO BID [facility] Last Admin: 01/04/23 21:48 Dose: 300 mg Magnesium Hydroxide (Milk Of Magnesia 30 Ml Oral.Susp) 30 ml PO DAILY PRN PRN Reason: Constipation Multi-Ingred Cream/Lotion/Oil/Oint (Mineral Oil/Petrolatum,White 106 Gm Tube) 1 appl TOPICAL BID [facility]; Protocol Last Admin: 01/04/23 21:51 Dose: Not Given Quetiapine Fumarate (Quetiapine Fumarate 100 Mg Tablet) 100 mg PO BEDTIME [facility] Last Admin: 01/04/23 21:48 Dose: 100 mg Trazodone HCl (Trazodone Hcl 50 Mg Tablet) 50 mg PO BEDTIME MRX1 PRN PRN Reason: Insomnia Triamcinolone Acetonide (Triamcinolone Acet 0.1 % Cream 15 Gm Tube) 1 appl TOPICAL BID [facility]; Protocol Last Admin: 01/04/23 21:51 Dose: Not Given Allergies Allergies Allergy/AdvReac Type Severity Reaction Status Date / Time No Known Allergies Allergy Verified 05/24/20 18:10 [No Known Allergies*] Assessment & Plan Assessment & Plan (1) Bipolar 1 disorder, depressed, moderate: Status: Acute Code(s): F31.32 - Bipolar disorder, current episode depressed, moderate (2) Asperger syndrome: Status: Acute Code(s): F84.5 - Asperger's syndrome Plan Patient is a 32 year old male with hx of Bipolar d/o and Asperger syndrome who self presented to [facility] ER d/t suicidal ideation secondary to reported increased loree and medication noncompliance. Plan: CV 15 minute safety checks Referral for outpatient prescriber 01/03: Patient guarded and irritable today. Pt c/o of staff opening my door at night and not letting me sleep . Patient continues to report passive suicidal ideation and stated, I'm always suicidal but I would never act on it because that would be stupid . Patient reports he does not want to attend groups d/t his belief that they are not helpful . Pt stated, groups don't work; I don't want to hear people preaching to me. I don't want to fucking hear about it. No one better expect me to go . When T/W informed patient that groups are not mandatory but encouraged; pt stated, it can be encouraged for them to shove it up their butt. I don't give a shit about anyone else here . Patient also stated that he will refuse to meet with someone in-person for his outpatient psychiatric appointments. Seroquel increased to 100mg PO bedtime. [place] increased to 300mg PO BID. [place] level to be drawn on 01/07. 01/04: Patient presents calm and cooperative today. Patient stated, I am starting to feel better with the medications. It makes me less angry and irritable. With the meds, I'm able to focus on other things . Pt reports he would like to go to respite from here and be referred to outpatient providers. Patient stated, It's been a long time since I've felt better . 01/05: Patient reports feeling good today. Pt reports he feels better than when I first came in here . Pt stated, when I leave here I'm going to try to get my car back and go back to work . Plan is for patient to be discharged to respite. pt attending groups. continue current tx plan. Patient educated on: diagnosis, medication risk/benefits and therapeutic strategies Informed Consent: understands Reason for continued inpatient stay Substantial Risk for: med/psych decompensation Time Spent With Patient Time: Total time managing care of this patient today _30___ minutes.
[2023-01-05 10:44] VITALS: BP 133/65; PULSE 73; RESP 18; TEMP 36.6; O2SAT 99
[2023-01-05] MEDS: Lithium Carbonate ER 300 MG TABLET.ER PO ×2 (10:46→22:20)
[2023-01-05] MEDS: Triamcinolone Acet 0.1 % Cream 15 GM TUBE 1 APPL TOPICAL (10:46)
[2023-01-05] MEDS: Mineral Oil/Petrolatum,White 106 GM Tube 1 APPL TOPICAL (10:46)
[2023-01-05 21:19] VITALS: BP 136/81; PULSE 71; RESP 18; TEMP 36.7; O2SAT 99
[2023-01-05] MEDS: QUEtiapine Fumarate 100 MG TABLET PO (22:21)
[2023-01-06] MEDS: Lithium Carbonate ER 300 MG TABLET.ER PO ×2 (10:36→21:32)
[2023-01-06 10:37] VITALS: BP 134/72; PULSE 73; RESP 16; TEMP 36.7; O2SAT 100
--- NOTE | 2023-01-06 10:37 | PC.NURSE ---
per refused TEDS. Maybe later, I might shower . Provided education and encouraged compliance
--- NOTE | 2023-01-06 10:57 | P.PNPSI_ITS ---
Subjective Subjective Date of Service: 01/06/23 Reason For Visit: F31.9Unspecified Bipolar and Related [id number] Subjective Notes: Conditional Voluntary Interim History: Patient was seen and discussed in rounds today. Records and plans were reviewed. He has been pleasant, social and cooperative. He is medication compliant. Eating and sleeping adequately. Slight anxiety still present. He is safe on the unit. No SI. Attending groups. No changes were made today Medication Compliance: Yes Side effects from medications: No Review of Systems Review of Systems Yes all other systems are reviewed and are negative Mental Status Exam Mental Status Exam Narrative: In today's visit he is alert, oriented and pleasant. Normal speech. Moderate eye contact. Affect is appropriate and constricted. No signs of psychosis. Cognitively intact. Judgment is intact Diagnostics Vital Signs (24Hr): Vital Signs - 24 hr 01/05/23 21:19 Temperature 98.1 F Pulse Rate 71 Respiratory Rate 18 Blood Pressure 136/81 Pulse Oximetry 99 Oxygen Delivery Method Room Air BMI result Body Mass Index 42.7 Medications Medications Current Medications Acetaminophen (Acetaminophen 325 Mg Tablet) 650 mg PO Q6H PRN PRN Reason: Headache/Pain Mild Scale (1-3) Al Hydroxide/Mg Hydroxide (Magnesium Hydrox/Alum Hydrox 30 Ml Oral.Susp) 30 ml PO Q6H PRN PRN Reason: Heartburn/Nausea Hydroxyzine HCl (Hydroxyzine Hcl 25 Mg Tablet) 25 mg PO Q6H PRN PRN Reason: Anxiety [place] Carbonate ([place] Carbonate Er 300 Mg Tablet.Er) 300 mg PO BID [facility] Last Admin: 01/06/23 10:36 Dose: 300 mg Magnesium Hydroxide (Milk Of Magnesia 30 Ml Oral.Susp) 30 ml PO DAILY PRN PRN Reason: Constipation Multi-Ingred Cream/Lotion/Oil/Oint (Mineral Oil/Petrolatum,White 106 Gm Tube) 1 appl TOPICAL BID [facility]; Protocol Last Admin: 01/06/23 10:37 Dose: Not Given Quetiapine Fumarate (Quetiapine Fumarate 100 Mg Tablet) 100 mg PO BEDTIME [facility] Last Admin: 01/05/23 22:21 Dose: 100 mg Trazodone HCl (Trazodone Hcl 50 Mg Tablet) 50 mg PO BEDTIME MRX1 PRN PRN Reason: Insomnia Triamcinolone Acetonide (Triamcinolone Acet 0.1 % Cream 15 Gm Tube) 1 appl TOPICAL BID [facility]; Protocol Last Admin: 01/06/23 10:37 Dose: Not Given Allergies Allergies Allergy/AdvReac Type Severity Reaction Status Date / Time No Known Allergies Allergy Verified 05/24/20 18:10 [No Known Allergies*] Assessment & Plan Assessment & Plan (1) Bipolar 1 disorder, depressed, moderate: Status: Acute Code(s): F31.32 - Bipolar disorder, current episode depressed, moderate (2) Asperger syndrome: Status: Acute Code(s): F84.5 - Asperger's syndrome Plan Patient is a 32 year old male with hx of Bipolar d/o and Asperger syndrome who self presented to [facility] ER d/t suicidal ideation secondary to reported increased loree and medication noncompliance. Plan: CV 15 minute safety checks Referral for outpatient prescriber 01/03: Patient guarded and irritable today. Pt c/o of staff opening my door at night and not letting me sleep . Patient continues to report passive suicidal ideation and stated, I'm always suicidal but I would never act on it because that would be stupid . Patient reports he does not want to attend groups d/t his belief that they are not helpful . Pt stated, groups don't work; I don't want to hear people preaching to me. I don't want to fucking hear about it. No one better expect me to go . When T/W informed patient that groups are not mandatory but encouraged; pt stated, it can be encouraged for them to shove it up their butt. I don't give a shit about anyone else here . Patient also stated that he will refuse to meet with someone in-person for his outpatient psychiatric appointments. Seroquel increased to 100mg PO bedtime. [place] increased to 300mg PO BID. [place] level to be drawn on 01/07. 01/04: Patient presents calm and cooperative today. Patient stated, I am starting to feel better with the medications. It makes me less angry and irritable. With the meds, I'm able to focus on other things . Pt reports he would like to go to respite from here and be referred to outpatient providers. Patient stated, It's been a long time since I've felt better . 01/05: Patient reports feeling good today. Pt reports he feels better than when I first came in here . Pt stated, when I leave here I'm going to try to get my car back and go back to work . Plan is for patient to be discharged to respite. pt attending groups. continue current tx plan. Reason for continued inpatient stay Substantial Risk for: rapid decompensation Time Spent With Patient Time: Total time managing care of this patient today ____ minutes.
[2023-01-06 21:28] VITALS: BP 135/92; PULSE 97; RESP 18; TEMP 37.8; O2SAT 100
[2023-01-06] MEDS: QUEtiapine Fumarate 100 MG TABLET PO (21:32)
[2023-01-07 09:08] VITALS: BP 136/78; PULSE 78; RESP 16; TEMP 36.7; O2SAT 99
--- NOTE | 2023-01-07 09:10 | P.PNPSI_ITS ---
Subjective Subjective Date of Service: 01/07/23 Reason For Visit: F31.9Unspecified Bipolar and Related [id number] Subjective Notes: Conditional Voluntary Interim History: Patient was seen and discussed in rounds today. Records and plans were reviewed. He has been active, not going to groups. He has been somewhat tangential. Continues to have some anxiety and depression. Eating and sleeping adequately. He has been med compliant. No complaints or side effects. No changes were made today Medication Compliance: Yes Side effects from medications: No Review of Systems Review of Systems Yes all other systems are reviewed and are negative Mental Status Exam Mental Status Exam Narrative: In today's visit he is alert, oriented and pleasant. Normal speech. Moderate eye contact. Affect is appropriate and constricted. No signs of psychosis. Cognitively intact. Judgment is intact Diagnostics Vital Signs (24Hr): Vital Signs - 24 hr 01/06/23 10:37 01/06/23 21:28 01/07/23 09:08 Temperature 98.1 F 100.1 F 98.1 F Pulse Rate 73 97 78 Respiratory Rate 16 18 16 Blood Pressure 134/72 135/92 H 136/78 Pulse Oximetry 100 100 99 Oxygen Delivery Method Room Air Room Air Room Air BMI result Body Mass Index 42.7 Medications Medications Current Medications Acetaminophen (Acetaminophen 325 Mg Tablet) 650 mg PO Q6H PRN PRN Reason: Headache/Pain Mild Scale (1-3) Al Hydroxide/Mg Hydroxide (Magnesium Hydrox/Alum Hydrox 30 Ml Oral.Susp) 30 ml PO Q6H PRN PRN Reason: Heartburn/Nausea Hydroxyzine HCl (Hydroxyzine Hcl 25 Mg Tablet) 25 mg PO Q6H PRN PRN Reason: Anxiety [place] Carbonate ([place] Carbonate Er 300 Mg Tablet.Er) 300 mg PO BID [facility] Last Admin: 01/06/23 21:32 Dose: 300 mg Magnesium Hydroxide (Milk Of Magnesia 30 Ml Oral.Susp) 30 ml PO DAILY PRN PRN Reason: Constipation Multi-Ingred Cream/Lotion/Oil/Oint (Mineral Oil/Petrolatum,White 106 Gm Tube) 1 appl TOPICAL BID [facility]; Protocol Last Admin: 01/06/23 23:42 Dose: Not Given Quetiapine Fumarate (Quetiapine Fumarate 100 Mg Tablet) 100 mg PO BEDTIME [facility] Last Admin: 01/06/23 21:32 Dose: 100 mg Trazodone HCl (Trazodone Hcl 50 Mg Tablet) 50 mg PO BEDTIME MRX1 PRN PRN Reason: Insomnia Triamcinolone Acetonide (Triamcinolone Acet 0.1 % Cream 15 Gm Tube) 1 appl TOPICAL BID [facility]; Protocol Last Admin: 01/06/23 23:43 Dose: Not Given Allergies Allergies Allergy/AdvReac Type Severity Reaction Status Date / Time No Known Allergies Allergy Verified 05/24/20 18:10 [No Known Allergies*] Assessment & Plan Assessment & Plan (1) Bipolar 1 disorder, depressed, moderate: Status: Acute Code(s): F31.32 - Bipolar disorder, current episode depressed, moderate (2) Asperger syndrome: Status: Acute Code(s): F84.5 - Asperger's syndrome Plan Patient is a 32 year old male with hx of Bipolar d/o and Asperger syndrome who self presented to [facility] ER d/t suicidal ideation secondary to reported increased loree and medication noncompliance. Plan: CV 15 minute safety checks Referral for outpatient prescriber 01/03: Patient guarded and irritable today. Pt c/o of staff opening my door at night and not letting me sleep . Patient continues to report passive suicidal ideation and stated, I'm always suicidal but I would never act on it because that would be stupid . Patient reports he does not want to attend groups d/t his belief that they are not helpful . Pt stated, groups don't work; I don't want to hear people preaching to me. I don't want to fucking hear about it. No one better expect me to go . When T/W informed patient that groups are not mandatory but encouraged; pt stated, it can be encouraged for them to shove it up their butt. I don't give a shit about anyone else here . Patient also stated that he will refuse to meet with someone in-person for his outpatient psychiatric appointments. Seroquel increased to 100mg PO bedtime. [place] increased to 300mg PO BID. [place] level to be drawn on 01/07. 01/04: Patient presents calm and cooperative today. Patient stated, I am starting to feel better with the medications. It makes me less angry and irritable. With the meds, I'm able to focus on other things . Pt reports he would like to go to respite from here and be referred to outpatient providers. Patient stated, It's been a long time since I've felt better . 01/05: Patient reports feeling good today. Pt reports he feels better than when I first came in here . Pt stated, when I leave here I'm going to try to get my car back and go back to work . Plan is for patient to be discharged to respite. pt attending groups. continue current tx plan. 01/07: Continue current regimen and plans Reason for continued inpatient stay Substantial Risk for: rapid decompensation Time Spent With Patient Time: Total time managing care of this patient today ____ minutes.
--- NOTE | 2023-01-07 09:44 | PC.NURSE ---
Pt reported being upset and referred to terrazzo laborer as being retarded because she couldn't draw blood due to poor vascular access. Tech offered to return w/ coworker to reattempt blood draw. Pt became increasingly agitated and stated, I plan on leaving on Sunday and if it's delayed because these morons can't get my f*cking lithium level, I'm gonna go the f*ck off . Pt was deescalated and redirected w/ good effect. Lab draw pending.
[2023-01-07] MEDS: Lithium Carbonate ER 300 MG TABLET.ER PO ×2 (10:23→21:50)
[2023-01-07 10:30] LABS: Lithium 0.39 mmol/L (0.60-1.20)
[2023-01-07 11:03] LABS: Anion Gap 13 (12-20); Blood Urea Nitrogen 13 mg/dL (9-16); Carbon Dioxide 27 mmol/L (22-29); Chloride 100 mmol/L (96-108); Creatinine Clr Calc Pharmacy 127.9; Estimated Glomerular Filt Rate > 60; Potassium 4.4 mmol/L (3.3-5.1); Sodium 136 mmol/L (135-145)
[2023-01-07 11:39] LABS: TSH reflex Free T4 3.36 uIU/mL (0.32-4.0)
[2023-01-07 17:35] VITALS: BP 126/76; PULSE 88; TEMP 36.7
[2023-01-07] MEDS: QUEtiapine Fumarate 100 MG TABLET PO (21:50)
[2023-01-08 09:00] VITALS: BP 135/73; PULSE 65; RESP 16; TEMP 36.6; O2SAT 100
[2023-01-08] MEDS: Lithium Carbonate ER 300 MG TABLET.ER PO (09:03)
[2023-01-08 09:51] LABS: COVID-19 Test Negative (Negative); IDNOW Serial# BCCEAD1C
--- NOTE | 2023-01-08 10:45 | P.PNPSI_ITS ---
Subjective Subjective Date of Service: 01/08/23 Reason For Visit: F31.9Unspecified Bipolar and Related [id number] Subjective Notes: Conditional Voluntary Interim History: Patient was seen and discussed in rounds today. Records and plans were reviewed. He has been fairly stable and is preparing for discharge, possibly tomorrow. He denies being depressed. He is attending groups and has been social. His lithium level has been low which is understandable given his dose which I will increase to 900 mg. Previously he had been up to 1200 mg which is probably a more adequate dose for him. No other changes were made today Medication Compliance: Yes Side effects from medications: No Review of Systems Review of Systems Yes all other systems are reviewed and are negative Mental Status Exam Mental Status Exam Narrative: In today's visit he is alert, oriented and pleasant. Normal speech. Moderate eye contact. Affect is appropriate and constricted. No signs of psychosis. Cognitively intact. Judgment is intact Diagnostics Vital Signs (24Hr): Vital Signs - 24 hr 01/07/23 17:35 01/08/23 09:00 Temperature 98.0 F 97.9 F Pulse Rate 88 65 Respiratory Rate 16 Blood Pressure 126/76 135/73 Pulse Oximetry 100 Oxygen Delivery Method Room Air BMI result Body Mass Index 42.7 Labs 01/07/23 10:16 Labs: Laboratory Results - last 48 hr 01/07/23 01/07/23 01/08/23 10:16 10:16 09:07 Sodium 136 Potassium 4.4 D Chloride 100 Carbon Dioxide 27 Anion Gap 13 BUN 13 Creatinine 1.02 Estim Creat Clear Calc 127.9 Estimated GFR > 60 TSH 3.36 [place] 0.39 L COVID-19 ([facility]) Negative COVID-19 Clin Com See Note Medications Medications Current Medications Acetaminophen (Acetaminophen 325 Mg Tablet) 650 mg PO Q6H PRN PRN Reason: Headache/Pain Mild Scale (1-3) Al Hydroxide/Mg Hydroxide (Magnesium Hydrox/Alum Hydrox 30 Ml Oral.Susp) 30 ml PO Q6H PRN PRN Reason: Heartburn/Nausea Hydroxyzine HCl (Hydroxyzine Hcl 25 Mg Tablet) 25 mg PO Q6H PRN PRN Reason: Anxiety [place] Carbonate ([place] Carbonate Er 450 Mg Tablet.Er) 900 mg PO BEDTIME [facility] Magnesium Hydroxide (Milk Of Magnesia 30 Ml Oral.Susp) 30 ml PO DAILY PRN PRN Reason: Constipation Multi-Ingred Cream/Lotion/Oil/Oint (Mineral Oil/Petrolatum,White 106 Gm Tube) 1 appl TOPICAL BID [facility]; Protocol Last Admin: 01/08/23 09:05 Dose: Not Given Quetiapine Fumarate (Quetiapine Fumarate 100 Mg Tablet) 100 mg PO BEDTIME [facility] Last Admin: 01/07/23 21:50 Dose: 100 mg Trazodone HCl (Trazodone Hcl 50 Mg Tablet) 50 mg PO BEDTIME MRX1 PRN PRN Reason: Insomnia Triamcinolone Acetonide (Triamcinolone Acet 0.1 % Cream 15 Gm Tube) 1 appl TOPICAL BID [facility]; Protocol Last Admin: 01/08/23 09:05 Dose: Not Given Allergies Allergies Allergy/AdvReac Type Severity Reaction Status Date / Time No Known Allergies Allergy Verified 05/24/20 18:10 [No Known Allergies*] Assessment & Plan Assessment & Plan (1) Bipolar 1 disorder, depressed, moderate: Status: Acute Code(s): F31.32 - Bipolar disorder, current episode depressed, moderate (2) Asperger syndrome: Status: Acute Code(s): F84.5 - Asperger's syndrome Plan Patient is a 32 year old male with hx of Bipolar d/o and Asperger syndrome who self presented to [facility] ER d/t suicidal ideation secondary to reported increased loree and medication noncompliance. Plan: CV 15 minute safety checks Referral for outpatient prescriber 01/03: Patient guarded and irritable today. Pt c/o of staff opening my door at night and not letting me sleep . Patient continues to report passive suicidal ideation and stated, I'm always suicidal but I would never act on it because that would be stupid . Patient reports he does not want to attend groups d/t his belief that they are not helpful . Pt stated, groups don't work; I don't want to hear people preaching to me. I don't want to fucking hear about it. No one better expect me to go . When T/W informed patient that groups are not mandatory but encouraged; pt stated, it can be encouraged for them to shove it up their butt. I don't give a shit about anyone else here . Patient also stated that he will refuse to meet with someone in-person for his outpatient psychiatric appointments. Seroquel increased to 100mg PO bedtime. [place] increased to 300mg PO BID. [place] level to be drawn on 01/07. 01/04: Patient presents calm and cooperative today. Patient stated, I am starting to feel better with the medications. It makes me less angry and irritable. With the meds, I'm able to focus on other things . Pt reports he would like to go to respite from here and be referred to outpatient providers. Patient stated, It's been a long time since I've felt better . 01/05: Patient reports feeling good today. Pt reports he feels better than when I first came in here . Pt stated, when I leave here I'm going to try to get my car back and go back to work . Plan is for patient to be discharged to respite. pt attending groups. continue current tx plan. 01/07: Continue current regimen and plans 01/08: Continue current plans and regimen Reason for continued inpatient stay Substantial Risk for: stable for discharge Time Spent With Patient Time: Total time managing care of this patient today ____ minutes.
[2023-01-08 18:00] VITALS: BP 124/77; PULSE 100; RESP 18; TEMP 36.6; O2SAT 98
[2023-01-08] MEDS: Lithium Carbonate 300 MG TABLET 600 MG PO (21:13)
[2023-01-08] MEDS: QUEtiapine Fumarate 100 MG TABLET PO (21:13)
[2023-01-09 08:33] VITALS: BP 130/79; PULSE 76; RESP 18; TEMP 36.8; O2SAT 99
--- NOTE | 2023-01-09 09:41 | P.DS_ITS ---
DS: Providers Provider Date of Service: 01/09/23 Date of admission: 01/01/23 16:43 Date of discharge: 01/09/23 Primary care physician: Unknown Physician Admitting clinician: Avril Short Attending physician on admission: Isidro Santoyo Consults: 01/01/23 17:23 Consult to Hospitalist Routine Comment: Consulting Provider: Hospitalist Reason For Exam: Admit from [facility] ED 01/01/23 18:43 Consult to Hospitalist Routine Comment: Consulting Provider: Hospitalist Reason For Exam: admission physical Attending physician on discharge: Dereck Cruz Discharging clinician: Avril Short DS: Diagnosis Discharge Diagnosis (1) Bipolar 1 disorder, depressed, moderate: Status: Acute (2) Asperger syndrome: Status: Acute DS: Medications Discharge Medications Home Medications: Previous Rx's Medication Instructions Recorded lithium carbonate 300 mg 300 mg PO BID 30 days #60 tabs 01/09/23 tablet,extended release quetiapine 100 mg tablet 100 mg PO BEDTIME 30 days #30 tabs 01/09/23 triamcinolone acetonide 0.1 % 1 appl topical BID 30 days #15 01/09/23 topical cream grams white petrolatum-mineral oil 1 appl topical BID 30 days #454 01/09/23 topical cream (Dermacerin topical grams cream) Mental Status Exam Mental Status Exam Narrative: Pt is alert and oriented; behavior is cooperative, friendly and calm; dressed in casual attire; mood is described as good ; eye contact appropriate; Speech is normal rate, volume and prosody and not pressured; no psychomotor agitation /retardation present; thought process is organized and goal directed; Thought content is on tx; otherwise pertinent to relevant topics and without any delusional content, paranoid ideations or grandiosity; denies SI/HI. There is no evidence of perceptual disturbance. Patients insight and judgment are fair. Data Data Completed and Pending Completed studies during hospitalization [Text1]: 01/07/23 01/07/23 01/08/23 10:16 10:16 09:07 Sodium 136 Potassium 4.4 D Chloride 100 Carbon Dioxide 27 Anion Gap 13 BUN 13 Creatinine 1.02 Estim Creat Clear Calc 127.9 Estimated GFR > 60 TSH 3.36 [place] 0.39 L COVID-19 (GEORGE) Negative COVID-19 Clin Com See Note DS: Summary Hospital Course Hospital Course: Patient is a 32 year old male with hx of Bipolar d/o and Asperger syndrome who self presented to [facility] ER d/t suicidal ideation secondary to reported increased loree and medication noncompliance. Per crisis report, pt has not been taking [place] and Seroquel for a year and has since had labile mood. He reports suicidal ideation since the age of 12 but has never acted on thoughts. Pt denies any drug use. UTOX negative. Presently lives out of his car which was recently repossessed. During admission assessment, patient presents guarded and irritable. Speech not pressured or rapid; loud at times. Patient responding to questions with brief responses. Pt stated, I'm sick of everyone asking me the same questions! There is no reason as to why I want to ! Sometimes there isn't a reason! I don't want to keep repeating myself! . Patient reports suicidal ideation since the age of 12 with no plan. Pt stated, I've never acted on it and I wouldn't act on it here because I'm not retarded! Anyone who tries in a hospital is retarded! . Patient reports he would like to be restarted on [place] and Seroquel because they worked for me in the past . Patient does not recall dosages he was taking or why he stopped taking medications. He reports sleeping and eating well. Pt denies HI/VH/AH at this time. He reports having a therapist at the [facility]. During hospital stay, Patient guarded and irritable today. Pt c/o of staff opening my door at night and not letting me sleep . Patient continues to report passive suicidal ideation and stated, I'm always suicidal but I would never act on it because that would be stupid . Patient reports he does not want to attend groups d/t his belief that they are not helpful . Pt stated, groups don't work; I don't want to hear people preaching to me. I don't want to fucking hear about it. No one better expect me to go . When T/W informed patient that groups are not mandatory but encouraged; pt stated, it can be encouraged for them to shove it up their butt. I don't give a shit about anyone else here . Patient also stated that he will refuse to meet with someone in-person for his outpatient psychiatric appointments. Seroquel increased to 100mg PO bedtime. L ithium increased to 300mg PO BID. [place] level to be drawn on 01/07. Patient calm and cooperative. Patient stated, I am starting to feel better with the medications. It makes me less angry and irritable. With the meds, I'm able to focus on other things . Pt reports he would like to go to respite from here and be referred to outpatient providers. Patient stated, It's been a long time since I've felt better . Pt reports he feels better than when I first came in here . Pt stated, when I leave here I'm going to try to get my car back and go back to work . Pt attending groups. Plan is for patient to be discharged to respite. He has follow up appointments for outpatient psychiatric providers. Pt denies SI/HI/VH/AH at this time. Time spent discussing smoking cessation with patient: 3 to 10 minutes Status at Discharge Cognitive/behavioral status at discharge: Patient was interviewed prior to discharge and found to be fully oriented and without any SI or HI. Patient has insight and demonstrates good judgment in terms of wanting to pursue treatment. Patient is not in imminent risk of harm to self or others and has a safety plan that includes presenting to the closest ER or calling 911 if feeling unsafe. Patient has been observed closely by nursing and unit staff throughout admission; patient has not engaged in any behaviors that suggest dangerousness to self or others and has demonstrated appropriate behaviors and impulse control. Functional status at discharge: independent ambulation Overall status at discharge: patient is back to baseline Time Spent with Patient Time attestation: Total time managing care of this patient today _30___ minutes. Time spent: Less than 30 minutes Discharge Plan Discharge Anticipated Discharge Date/Time: 01/09/23 10:30 Patient Disposition: Xfer to Respite Facility Discharge Diagnosis: Bipolar d/o, Asperger syndrome Referrals: Laura Mckinley (Therapy) [Other] - 01/11/23 1:00 pm (IN OFFICE APPOINTMENT -Please arrive fifteen minutes early to your appointment in order to fill out necessary paperwork. ) Tiff Rangel (Psychiatry) [Other] - 02/08/23 9:00 am (TELEHEALTH APPOINTMENT -You can go the office and someone will set you up on a computer there for your appointment. You can also call [facility] at the phone number listed above to see if the appointment can take place over the phone. ) Tiff Rangel (Psychiatry) [Other] - 03/12/23 9:30 am (TELEHEALTH APPOINTMENT ) [facility] (Provider will call with appointment time. Appointment scheduled with Dr. Stokes 01/22/23 at 10:30 in office appointment. ) Discharge Medications: New quetiapine 100 mg Tablet 100 mg PO BEDTIME 30 Days Qty: 30 0RF triamcinolone acetonide 0.1 % Cream 1 appl topical BID 30 Days Qty: 15 0RF Protocol: Apply to: Apply to: BLE Dermacerin Cream 1 appl topical BID 30 Days Qty: 454 0RF Protocol: Apply to: Apply to: ble lithium carbonate 300 mg tablet extended release 300 mg PO BID 30 Days Qty: 60 0RF Discharge Orders: Discharge Order (Routine); Ordered 01/09/23 Ordered By: Avril Short Diet: Regular diet Activity on Discharge: As tolerated Stand Alone Forms: Patient Portal Discharge page, Community Support Care Plan Goals: Maintain mood and safe behaviors Take medications as prescribed Practice coping skills Continue with outpatient providers and reach out to them as needed Health Concerns: Mood stability and behaviors Plan of Treatment: Follow up with your PCP, psychiatric provider and other outpatient providers regarding above concerns Take medications as prescribed Assessment: Patient was interviewed prior to discharge and found to be fully oriented and without any SI or HI. Patient has insight and demonstrates good judgment in terms of wanting to pursue treatment. Patient is not in imminent risk of harm to self or others and has a safety plan that includes presenting to the closest ER or calling 911 if feeling unsafe. Patient has been observed closely by nursing and unit staff throughout admission; patient has not engaged in any behaviors that suggest dangerousness to self or others and has demonstrated appropriate behaviors and impulse control. Discharge Date/Time: 01/09/23 10:30
[2023-01-09] MEDS: Lithium Carbonate ER 300 MG TABLET.ER PO (10:17)
== END 2023-01-09 10:30 | DRG 753 ==
PROVIDERS: Internal Medicine; Psychiatry & Neurology Psychiatry; Admitting Provider Psychiatry & Neurology Psychiatry; Responsible Provider Registered Nurse; Visit Provider Psychiatry & Neurology Psychiatry
DX: F31.32 Bipolar disorder, current episode depressed, moderate (principal); R45.851 Suicidal ideations; Z91.148 Patient's other noncompliance with medication regimen for other reason; F84.5 Asperger's syndrome; Z20.822 Contact with and (suspected) exposure to COVID-19; Z79.899 Other long term (current) drug therapy
CPT/HCPCS: 36415; 80051; 80061; 80178; 82565; 83036; 84443; 84520; 87635

== ENCOUNTER → 2023-01-01 16:43 | Outpatient (BNV) | payer OTHER, SELFPAY | PROVIDERS: Admitting Provider Psychiatry & Neurology Psychiatry; Responsible Provider Registered Nurse; Visit Provider Registered Nurse | DX: F31.32 Bipolar disorder, current episode depressed, moderate (principal); F84.5 Asperger's syndrome | CPT/HCPCS: 90792; 99231; 99232 ==

== ENCOUNTER → 2023-01-01 16:43 | Outpatient (BNV) | payer OTHER, SELFPAY | PROVIDERS: Admitting Provider Psychiatry & Neurology Psychiatry; Responsible Provider Registered Nurse; Visit Provider Physician Assistant | DX: Z02.2 Encounter for examination for admission to residential institution (principal) | CPT/HCPCS: 99429 ==

== ENCOUNTER → 2023-01-01 16:43 | Outpatient (BNV) | payer OTHER, SELFPAY | PROVIDERS: Admitting Provider Psychiatry & Neurology Psychiatry; Responsible Provider Registered Nurse; Visit Provider Psychiatry & Neurology Psychiatry | DX: F31.32 Bipolar disorder, current episode depressed, moderate (principal); F84.5 Asperger's syndrome | CPT/HCPCS: 99231; 99239 ==

== ENCOUNTER 2023-06-29 15:04 | Emergency (ER) | payer OTHER, SELFPAY ==
[2023-06-29 15:32] LABS: Appearance Urine Clear; Color Urine Yellow; Glucose Urine UA Negative (Negative); Leukocyte Esterase Urine Negative (Negative); Nitrite Urine Negative (Negative); Specific Gravity - Urine >= 1.030 (1.005-1.025); Urine Blood Negative (Negative); Urine Ketones Trace mg/dL (Negative); Urine Protein Trace mg/dL (Neg-Trace)
[2023-06-29 15:40] LABS: Amphetamine Screen Urine Not Detected (Not Detect); Barbiturates, Urine Not Detected (Not Detect); Benzodiazepines Screen Urine Not Detected (Not Detect); Cannabinoid Screen Urine Not Detected (Not Detect); Cocaine Screen Urine Not Detected (Not Detect); Fentanyl, urine Not Detected (Not Detect); Opiate Screen Urine Not Detected (Not Detect); Phencyclidine Screen Urine Not Detected (Not Detect)
[2023-06-29 15:44] VITALS: BP 128/66; PULSE 86; RESP 16; TEMP 36.3; O2SAT 99; BMI 48.4
[2023-06-29 15:47] VITALS: RESP 16
--- NOTE | 2023-06-29 16:43 | ED_ITS ---
HPI - General Adult General Chief complaint: Psychiatric Symptoms Stated complaint: crisis- ext. si Time Seen by Provider: 06/29/23 16:16 Source: patient, RN notes reviewed and old records reviewed Mode of arrival: ambulatory Limitations: no limitations History of Present Illness HPI narrative: 32-year-old male past medical history significant for bipolar disorder presents for evaluation ?loree. ? Patient reports he has ?felt off for 1 month. ? He reports increased stress due to a possible promotion at work States he has been taking his medications but admits to missing a few doses He takes lithium for bipolar disorder He reports passive suicidal ideation but states ?I would never act on them. ? The patient's self presents to the ER. He has no somatic complaints at this time Related Data Home Medications Medication Instructions Recorded Confirmed lithium carbonate 600 mg capsule 600 mg PO BID 06/29/23 06/29/23 quetiapine 25 mg tablet 25 mg PO BEDTIME 06/29/23 06/29/23 Previous Rx's Medication Instructions Recorded triamcinolone acetonide 0.1 % 1 appl topical BID 30 days #15 01/09/23 topical cream grams white petrolatum-mineral oil 1 appl topical BID 30 days #454 01/09/23 topical cream (Dermacerin topical grams cream) Allergies Allergy/AdvReac Type Severity Reaction Status Date / Time No Known Allergies Allergy Verified 05/24/20 18:10 [No Known Allergies*] Review of Systems 2 Constitutional: Constitutional: Denies chills, Denies fever(s) and Denies headache(s) Eyes: Eyes: Denies blurry vision ENT: Denies headache(s) Cardiovascular: Cardiovascular: Denies chest pain and Denies dyspnea Respiratory: Respiratory: Denies cough and Denies dyspnea Gastrointestinal: Gastrointestinal: Denies abdominal pain, Denies nausea and Denies vomiting Musculoskeletal: Musculoskeletal: Denies back pain Integumentary/Breasts: Skin/Breast: Denies rash Neurologic: Denies headache(s) Psychiatric: Psychiatric: Reports depression and Reports suicidal ideation Comments: Reports loree [facility] Past Medical History Medical History (Updated 06/29/23 @ 16:47 by Liborio Waggoner) Routine medical exam Chronic dermatitis Bipolar 1 disorder, depressed, severe Anxiety Asperger syndrome Bipolar 1 disorder Social History Social History Household Members: None Household Members Other:: in and out of hotel's Do you presently have visiting nurse or other home services: No Alcohol intake: current Alcohol intake frequency: a few times a week Alcohol type: beer Patient Tobacco Use Status: Never used Tobacco Smoked in Last 30 Days: No e-Cigarette/Vaping Use: Never Used Second Hand Smoke Exposure: No Use of substances other than those prescribed or required for medical reasons: No Advance Directives: No Advance Directives Information Provided: No service: No Sexual orientation: Straight/Heterosexual Physical Exam ED Vital Signs: Vital Signs - 24 hr 06/29/23 15:44 06/29/23 15:47 Temperature 97.4 F Pulse Rate 86 Respiratory Rate 16 16 Blood Pressure 128/66 Pulse Oximetry 99 Oxygen Delivery Method Room Air BMI result Body Mass Index 48.4 Const General: healthy appearing, comfortable, no acute distress, alert and awake Nutritional Appearance: well nourished Orientation/consciousness: patient oriented x3 HENMT Head: Yes normocephalic and Yes atraumatic Eyes Eyelids: Yes eyelids normal Conjunctivae: conjunctivae normal Sclerae: sclerae normal Corneas: corneas normal Pupils: Equal, round and reactive pupils present EOM: EOMs intact bilaterally Neck Neck: Yes full ROM Resp Effort & Inspection: normal respiratory effort, able to speak in complete sentences and not labored GI Inspection: No distended Palpation (GI): Soft to palpation, not firm, nontender, no guarding and not rigid Skin General skin exam: elasticity normal Neuro General: patient oriented x3 Cranial nerves: Yes Equal, round and reactive pupils present and Yes Bilaterally intact EOM present Cognition (Neuro): normal cognition Extrem Other: Moving all extremities well without any obvious deformities Psych Appearance: grossly normal Mental Status: mental status grossly normal Speech and movement: Normal speech and movement present Affect: normal affect Attitude: cooperative Thought process: Normal thought process present Thought content: Normal thought content present Insight: Good insight present (Psych) Judgement: Good judgement present (Psych) Course Reevaluation(s) Reevaluation #1: Patient was medically cleared for care team evaluation. Patient was seen by the care team and recommended outpatient treatment program which the patient is open to. The care team will attempt to find placement for the patient Time: 18:15 Medical Decision Making Medical Decision Making MDM Narrative: 32-year-old male presents for evaluation of self reported loree. He has a history of bipolar disorder. He admits to missing a few doses of lithium and Seroquel. He is seeking medication adjustment. Plan for medical clearance and evaluation. He has no somatic complaints at this time Differential Diagnosis Differential Diagnoses: The differential diagnosis associated with the presentation includes Bipolar disorder Medication noncompliance Suicidal ideation Acute loree Lab Data 06/29/23 17:00 06/29/23 17:00 Labs: Lab Results 06/29/23 06/29/23 Range/Units 15:23 17:00 WBC 10.4 (4.8-10.8) X10*3/uL RBC 5.91 H D (4.60-5.80) X10*6/uL Hgb 17.1 D (14.0-18.0) g/dl Hct 52.0 D (42.0-52.0) % MCV 88.0 (80.0-98.0) fL MCH 28.9 (27.0-33.0) pg MCHC 32.9 (31.0-36.0) g/dl RDW 12.8 (11.0-16.0) % Plt Count 228 (160-400) X10*3/uL MPV 11.7 (9.4-12.4) fL Immature Gran % (Auto) 0.2 (0.0-0.4) % Neut % (Auto) 71.4 (45-73) % Lymph % (Auto) 16.8 L (20-40) % [place] % (Auto) 8.4 (2-11) % Eos % (Auto) 2.5 (0-4) % Baso % (Auto) 0.7 (0-2) % Lymph # (Auto) 1.8 (1.2-4.9) X10*3/uL [place] # (Auto) 0.9 (0.1-1.2) X10*3/uL Eos # (Auto) 0.3 (0.0-0.4) X10*3/uL Baso # (Auto) 0.1 (0.0-0.2) X10*3/uL Abs Immat Gran (auto) 0.02 (0.00-0.03) X10*3/uL Absolute Neuts (auto) 7.4 (2.0-8.3) x10*3/uL Absolute Nucleated RBC 0.000 (0.0-0.012) X10*3/uL Nucleated RBC % (auto) 0.0 (0.0-0.2) /100WBC Sodium 144 (135-145) mmol/L Potassium 4.0 (3.3-5.1) mmol/L Chloride 107 (96-108) mmol/L Carbon Dioxide 28 (22-29) mmol/L Anion Gap 13 (12-20) BUN 15 (9-16) mg/dL Creatinine 1.01 (0.5-1.4) mg/dL Estim Creat Clear Calc 138.9 Estimated GFR > 60 Random Glucose 62 (60-115) mg/dL Calcium 10.1 D (8.4-10.2) mg/dL Total Bilirubin 0.5 (0.0-1.0) mg/dL AST 22 (5-37) U/L ALT 30 (0-40) U/L Alkaline Phosphatase 107 (39-117) U/L Total Protein 8.3 H (6.5-8.0) g/dL Albumin 4.8 (3.5-5.0) g/dL Urine Color Yellow Urine Appearance Clear Urine pH 7.0 (5.0-9.0) Ur Specific [place] >= 1.030 H (1.005-1.025) Urine Protein Trace (Neg-Trace) mg/dL Urine Glucose (UA) Negative (Negative) mg/dL Urine Ketones Trace (Negative) mg/dL Urine Blood Negative (Negative) Urine Nitrite Negative (Negative) Ur Leukocyte Esterase Negative (Negative) Urine Opiates Screen Not Detected (Not Detect) Urine Fentanyl Screen Not Detected (Not Detect) Ur Barbiturates Screen Not Detected (Not Detect) Ur Phencyclidine Scrn Not Detected (Not Detect) Ur Amphetamines Screen Not Detected (Not Detect) U Benzodiazepines Scrn Not Detected (Not Detect) [place] 0.29 L (0.60-1.20) mmol/L Urine Cocaine Screen Not Detected (Not Detect) U Marijuana (THC) Screen Not Detected (Not Detect) Ethyl Alcohol < 10 mg/dL Discharge Plan Discharge Clinical Impression: Bipolar disorder Patient Disposition: Still a Patient Prescriptions: No Action triamcinolone acetonide 0.1 % Cream 1 appl topical BID 30 Days Qty: 15 0RF Protocol: Apply to: Apply to: BLE Dermacerin Cream 1 appl topical BID 30 Days Qty: 454 0RF Protocol: Apply to: Apply to: rocio quetiapine 25 mg tablet 25 mg PO BEDTIME lithium carbonate 600 mg capsule 600 mg PO BID Interventions: [place]-Suicide Risk Severity Scale Last Done: 06/29/23 15:47
[2023-06-29 17:04] LABS: MANUAL DIFF FLAG NO
[2023-06-29 17:06] LABS: Basophils Absolute Auto 0.1 X10*3/uL (0.0-0.2); Basophils Percent Auto 0.7 % (0-2); Eosinophils Absolute Auto 0.3 X10*3/uL (0.0-0.4); Eosinophils Percent Auto 2.5 % (0-4); Hemoglobin 17.1 g/dl (14.0-18.0); Imm Gran Abs Auto 0.02 X10*3/uL (0.00-0.03); Imm Gran Pct Auto 0.2 % (0.0-0.4); Lymphocytes Absolute Auto 1.8 X10*3/uL (1.2-4.9); Lymphocytes Percent Auto 16.8 % (20-40); Mean Corpuscular HGB Conc 32.9 g/dl (31.0-36.0); Mean Corpuscular Hemoglobin 28.9 pg (27.0-33.0); Mean Platelet Volume 11.7 fL (9.4-12.4); Monocytes Absolute Auto 0.9 X10*3/uL (0.1-1.2); Monocytes Percent Auto 8.4 % (2-11); Neutrophils Absolute Auto 7.4 x10*3/uL (2.0-8.3); Neutrophils Percent Auto 71.4 % (45-73); Platelet Count 228 X10*3/uL (160-400); Red Blood Count 5.91 X10*6/uL (4.60-5.80); Red Cell Distribution Width 12.8 % (11.0-16.0); White Blood Count 10.4 X10*3/uL (4.8-10.8)
[2023-06-29 17:18] LABS: Lithium 0.29 mmol/L (0.60-1.20)
[2023-06-29 17:20] LABS: Alanine Aminotransferase 30 U/L (0-40); Albumin Level 4.8 g/dL (3.5-5.0); Alkaline Phosphatase 107 U/L (39-117); Anion Gap 13 (12-20); Aspartate Amino Transferase 22 U/L (5-37); Bilirubin Total 0.5 mg/dL (0.0-1.0); Blood Urea Nitrogen 15 mg/dL (9-16); Calcium 10.1 mg/dL (8.4-10.2); Carbon Dioxide 28 mmol/L (22-29); Chloride 107 mmol/L (96-108); Creatinine Clr Calc Pharmacy 138.9; Estimated Glomerular Filt Rate > 60; Ethanol < 10 mg/dL; Glucose Random 62 mg/dL (60-115); Sodium 144 mmol/L (135-145); Total Protein 8.3 g/dL (6.5-8.0)
--- NOTE | 2023-06-29 18:20 | PHA.MEDREC ---
Pharmacy Consult ? Medication Reconciliation Pharmacy has reviewed the medication reconciliation completed by nursing.
[2023-06-29] MEDS: Lithium Carbonate 300 MG CAPSULE 600 MG PO (22:34)
[2023-06-29] MEDS: QUEtiapine Fumarate 25 MG TABLET PO (22:34)
[2023-06-30 02:15] VITALS: BP 130/72; PULSE 65; RESP 17; TEMP 36.8; O2SAT 100
[2023-06-30] MEDS: Lithium Carbonate 300 MG CAPSULE 600 MG PO (08:22)
[2023-06-30] MEDS: Triamcinolone Acet 0.1 % Cream 15 GM TUBE 1 APPL TOPICAL (08:23)
[2023-06-30 09:51] VITALS: RESP 14
--- NOTE | 2023-06-30 10:06 | PC.NURSE ---
Assumed care of patient at 0700, patient resting on stretcher at this time, offering no complaints. All morning medications taken without issue. Now back in bed, appears to the sleeping, respirations even and unlabored, no apparent distress. Continue plan of care for [facility] bedsearch
--- NOTE | 2023-06-30 12:14 | MHC.CARE ---
Patient accepted to [facility] (respite) for admission before 1:30 today, patient will drive himself. ED provider, Dr. Muller updated
--- NOTE | 2023-06-30 12:24 | PC.NURSE ---
nurse to nurse given to Cruz in [facility] regarding patient
== END 2023-06-30 12:24 | disposition skilled nursing facility (03) ==
PROVIDERS: Physician Assistant; Emergency Provider Internal Medicine
DX: F31.9 Bipolar disorder, unspecified (principal); T43.596A Underdosing of other antipsychotics and neuroleptics, initial encounter; Y92.9 Unspecified place or not applicable; Z91.148 Patient's other noncompliance with medication regimen for other reason
CPT/HCPCS: 36415; 80053; 80178; 80307; 81003; 85025; 99285; S9485

== ENCOUNTER 2023-07-01 16:03 | Inpatient (IN) | payer OTHER, SELFPAY ==
[2023-07-01 16:04] VITALS: BP 132/76; PULSE 109; RESP 18; TEMP 37.7; O2SAT 98; BMI 43.1
--- NOTE | 2023-07-01 16:05 | ED_ITS ---
HPI - Psych General Chief Complaint: Psychiatric Symptoms Stated Complaint: crisis Time Seen by Provider: 07/01/23 16:14 Source: patient and old records reviewed Mode of arrival: ambulatory Limitations: no limitations History of Present Illness HPI Narrative: 32 yo male with PMH of bipolar disorder, aspergers states he hasn't taken his medications in a few days up until this AM. He has nowhere to live but does have a job. He needs to go inpatient. He feels very manic. He has thoughts of hurting himself. He denies HI. He states he wants to be able to work but doesn't feel he can right now like this. MD complaint: suicidal ideation, feels depressed and anxiety Onset (ago): day(s) (few) Duration: getting worse History of same: Yes Relieving factors: none Exacerbating factors: other Context: not taking psychiatric medications and significant life stressor Associated psychiatric symptoms: none, depression and suicidal ideation Associated symptoms: denies other symptoms Treatments prior to arrival: none If self harm: admits thoughts of self harm Related Data Home Medications Medication Instructions Recorded Confirmed lithium carbonate 600 mg capsule 600 mg PO BID 06/29/23 07/01/23 quetiapine 25 mg tablet 25 mg PO BEDTIME 06/29/23 07/01/23 Allergies Allergy/AdvReac Type Severity Reaction Status Date / Time No Known Allergies Allergy Verified 06/30/23 12:19 [No Known Allergies*] Review of Systems Review of Systems: Constitutional : No Fever, No Chills ENT/Mouth : No Ear Pain, No Nasal Congestion, No sore throat Eyes: No Eye Pain, No Swelling, No Redness Cardiovascular : No Chest Pain, No SOB Respiratory : No Cough, No Sputum, No Dyspnea Gastrointestinal : No Nausea, No Vomiting, No Diarrhea, No Hematochezia, No Melena Genitourinary : No Dysuria, No Urinary Frequency, No Hematuria Musculoskeletal : No Myalgias Skin : No Skin Lesions, No rash Neuro : No Weakness, No Numbness, No Paresthesias, No Dizziness, No Headache Psych : positive Anxiety, positive Depression, positive SI no HI All other systems reviewed and are negative [facility] Past Medical History Attestation statement: The following information was validated with the patient. Source: old records reviewed Medical History Routine medical exam Chronic dermatitis Bipolar 1 disorder, depressed, severe Anxiety Asperger syndrome Bipolar 1 disorder Social History Social History Household Members: None Household Members Other:: in and out of hotel's Do you presently have visiting nurse or other home services: No Alcohol intake: current Alcohol intake frequency: a few times a week Alcohol type: beer Patient Tobacco Use Status: Never used Tobacco e-Cigarette/Vaping Use: Never Used Second Hand Smoke Exposure: No Advance Directives: No Advance Directives Information Provided: No service: No Sexual orientation: Straight/Heterosexual Physical Exam Vital Signs: Vital Signs: Last Vital Signs Temp 99.8 F 07/01/23 16:04 Pulse 109 H 07/01/23 16:04 Resp 18 07/01/23 16:04 BP 132/76 07/01/23 16:04 Pulse Ox 98 07/01/23 16:04 O2 Del Method Room Air 07/01/23 16:04 BMI result Body Mass Index 43.1 Appearance: Alert. Oriented X3. No acute distress. anxious Eyes: Pupils equal, round and reactive to light. ENT: Pharynx normal. Neck: Normal inspection. Neck supple. CVS: Normal heart rate and rhythm. Pulses normal. Respiratory: No respiratory distress. Breath sounds normal. Abdomen: Soft and nontender. Skin: Skin warm and dry. Normal skin color. Normal skin turgor. Extremities: No lower extremity edema. No calf ttp Neuro: Oriented X 3. No motor deficit. No sensory deficit. Cn-12 intact Course Course Course Narrative: This is an RME: Additional HPI, ROS, PE not included below will be deferred to primary provider. Patient is a 32-year-old male who presents emergency department for ?crisis?, feeling extremely manic, disorganized, suicidal ideations without providing any specific plan. Denies drug or alcohol usage. Reports prior placement to respite which he does not feel was helpful, feels as though he requires inpatient admission at this time so that he can get stabilized before any respite stay. Medical Decision Making Medical Decision Making MDM Narrative: 32 yo male with PMH of bipolar disorder, aspergers at this time c/o SI and depression off of medications at this time will need labs, CARE team consult. He has no medical complaints Differential Diagnosis Differential Diagnoses: The differential diagnosis associated with the presentat ion includes bipolar, SI Admission/Observation Consideration of admission/observation: Escalation of care including admission/o bservation considered observe until seen by CARE team observation started at 442pm Consult Healthcare Provider Management of the patient was discussed with: Behavioral Health Provider Lab Data [facility] Lab Attestation statement: I reviewed the patient's lab results. External Record Review External record reviewed: Inpatient record Discharge Plan Discharge Clinical Impression: Bipolar 1 disorder, depressed, moderate Patient Disposition: Still a Patient Prescriptions: No Action triamcinolone acetonide 0.1 % Cream 1 appl topical BID 30 Days Qty: 15 0RF Protocol: Apply to: Apply to: BLE quetiapine 25 mg tablet 25 mg PO BEDTIME lithium carbonate 600 mg capsule 600 mg PO BID
[2023-07-01 16:34] LABS: Appearance Urine Clear; Color Urine Yellow; Glucose Urine UA Negative (Negative); Leukocyte Esterase Urine Negative (Negative); Nitrite Urine Negative (Negative); PH 5.5 (5.0-9.0); Urine Blood Negative (Negative); Urine Ketones Trace mg/dL (Negative); Urine Protein Negative (Neg-Trace)
[2023-07-01 16:41] LABS: Amphetamine Screen Urine Not Detected (Not Detect); Barbiturates, Urine Not Detected (Not Detect); Benzodiazepines Screen Urine Not Detected (Not Detect); Cannabinoid Screen Urine Not Detected (Not Detect); Cocaine Screen Urine Not Detected (Not Detect); Fentanyl, urine Not Detected (Not Detect); Opiate Screen Urine Not Detected (Not Detect); Phencyclidine Screen Urine Not Detected (Not Detect)
--- NOTE | 2023-07-01 16:42 | PHA.MEDREC ---
Pharmacy Consult ? Medication Reconciliation Pharmacy has REVIEWED the medication reconciliation.
[2023-07-01 16:50] LABS: COVID-19 Test Negative (Negative); IDNOW Serial# 152EDE1D
[2023-07-01 18:13] LABS: MANUAL DIFF FLAG NO
[2023-07-01 18:18] LABS: Basophils Percent Auto 0.4 % (0-2); Eosinophils Absolute Auto 0.1 X10*3/uL (0.0-0.4); Eosinophils Percent Auto 1.1 % (0-4); Hematocrit 51.3 % (42.0-52.0); Hemoglobin 16.9 g/dl (14.0-18.0); Imm Gran Abs Auto 0.03 X10*3/uL (0.00-0.03); Imm Gran Pct Auto 0.3 % (0.0-0.4); Lymphocytes Absolute Auto 0.5 X10*3/uL (1.2-4.9); Lymphocytes Percent Auto 5.6 % (20-40); Mean Corpuscular HGB Conc 32.9 g/dl (31.0-36.0); Mean Corpuscular Hemoglobin 28.7 pg (27.0-33.0); Mean Corpuscular Volume 87.1 fL (80.0-98.0); Mean Platelet Volume 11.4 fL (9.4-12.4); Monocytes Absolute Auto 0.5 X10*3/uL (0.1-1.2); Monocytes Percent Auto 5.2 % (2-11); Neutrophils Percent Auto 87.4 % (45-73); Platelet Count 203 X10*3/uL (160-400); Red Blood Count 5.89 X10*6/uL (4.60-5.80); Red Cell Distribution Width 12.4 % (11.0-16.0); White Blood Count 9.2 X10*3/uL (4.8-10.8)
[2023-07-01 18:28] LABS: Lithium 0.55 mmol/L (0.60-1.20)
[2023-07-01 18:36] LABS: Alanine Aminotransferase 22 U/L (0-40); Albumin Level 4.5 g/dL (3.5-5.0); Alkaline Phosphatase 96 U/L (39-117); Anion Gap 17 (12-20); Aspartate Amino Transferase 19 U/L (5-37); Bilirubin Total 0.4 mg/dL (0.0-1.0); Blood Urea Nitrogen 12 mg/dL (9-16); Calcium 10.2 mg/dL (8.4-10.2); Carbon Dioxide 24 mmol/L (22-29); Chloride 104 mmol/L (96-108); Creatinine Clr Calc Pharmacy 112.1; Estimated Glomerular Filt Rate > 60; Ethanol < 10 mg/dL; Glucose Random 95 mg/dL (60-115); Potassium 3.8 mmol/L (3.3-5.1); Sodium 141 mmol/L (135-145); Total Protein 7.9 g/dL (6.5-8.0)
[2023-07-01] MEDS: QUEtiapine Fumarate 25 MG TABLET PO (19:55)
[2023-07-01] MEDS: Lithium Carbonate 300 MG CAPSULE 600 MG PO (19:55)
--- NOTE | 2023-07-02 | ECG_ITS ---
Test Reason : PROLONG QT Blood Pressure : / mmHG Vent. Rate : 080 BPM Atrial Rate : 080 BPM P-R Int : 158 ms QRS Dur : 100 ms QT Int : 362 ms P-R-T Axes : 027 047 008 degrees QTc Int : 417 ms Normal sinus rhythm Normal ECG When compared with ECG of 06-JUL-2012 14:30, No significant change was found Referred By: Charissa Rangel Electronically Signed By:MARY DARNELL
[2023-07-02 06:06] VITALS: RESP 16
--- NOTE | 2023-07-02 06:07 | PC.NURSE ---
Patient slept through the night, no distress observed/reported, medication compliant, no behavior issues, pending care team assessment, VSS, will continue to monitor.
[2023-07-02] MEDS: Lithium Carbonate 300 MG CAPSULE 600 MG PO ×2 (08:57→20:39)
[2023-07-02 13:14] VITALS: BP 114/61; PULSE 85; RESP 16; TEMP 37.9; O2SAT 98
[2023-07-02 14:07] LABS: IDNOW Serial# 152EDE1D; Influenza A Positive (Negative); Influenza B2 Negative (Negative)
[2023-07-02] MEDS: Acetaminophen 325 MG TABLET 975 MG PO (14:20)
[2023-07-02] MEDS: Oseltamivir Phosphate 75 MG CAPSULE PO (14:31)
[2023-07-02 15:49] VITALS: BMI 42.8
--- NOTE | 2023-07-02 18:04 | PC.ADMIT ---
Pt was admitted on M3 on 07/02/23 from [facility] ED POD at 1510 on a CV. Pt drove to the ED on his own after leaving [facility] on 07/01/23 stating there was a lack of structure, and came in due to SI. He is calm and cooperative during admission process. He presents as depressed and flat buwas pleasant upon approach. He denies current HI/AVH but endorsed passive SI and anxiety/depression stating The suicidality is always there. It comes and go. He does not report any difficulties with appetite or sleep. He currently denies substance use and his tox screen was negative. He denies any ongoing medical issues other than issues with Flu (positive on 07/02/23). He was placed on and educated on droplet precautions and 5 minute checks for safety.
[2023-07-02 20:15] VITALS: BP 126/62; PULSE 82; RESP 18; TEMP 39.6; O2SAT 99
[2023-07-02] MEDS: Acetaminophen 325 MG TABLET 650 MG PO (20:38)
[2023-07-02] MEDS: QUEtiapine Fumarate 25 MG TABLET PO (20:39)
[2023-07-02 21:30] VITALS: TEMP 37
[2023-07-03 06:00] VITALS: BP 113/55; PULSE 83; RESP 18; TEMP 38.1; O2SAT 94
[2023-07-03] MEDS: Lithium Carbonate 300 MG CAPSULE 600 MG PO ×2 (08:41→22:26)
[2023-07-03] MEDS: Acetaminophen 325 MG TABLET 650 MG PO ×2 (08:43→15:14)
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
[2023-07-03 20:00] VITALS: BP 118/61; PULSE 68; RESP 18; TEMP 37.2; O2SAT 100
[2023-07-03] MEDS: QUEtiapine Fumarate 25 MG TABLET PO (22:27)
[2023-07-04] MEDS: Lithium Carbonate 300 MG CAPSULE 600 MG PO ×2 (08:18→20:44)
[2023-07-04 08:56] VITALS: BP 109/62; PULSE 71; RESP 20; TEMP 36.9; O2SAT 97
--- NOTE | 2023-07-04 15:21 | HO.PSYCHPN ---
Subjective Subjective Date of Service: 07/04/23 Reason For Visit: SI Interim History: calm, cooperative. continues to feel well. no complaints or requests. per staff, has the flu. taking meds. pleasant. flat. depressed. slept 7 or 8 hours. Mental Status Exam Mental Status Exam Narrative: Pt is alert and oriented; behavior is cooperative, friendly and calm; mood is described as good; eye contact appropriate; Speech is normal rate, volume and prosody and not pressured; no psychomotor agitation/retardation present; thought process is organized and goal directed; Thought content is on tx; otherwise pertinent to relevant topics and without any delusional content, paranoid ideations or grandiosity; no SI/HI/AVH expressed. Patients insight and judgment are fair. Diagnostics Vital Signs (24Hr): Vital Signs - 24 hr 07/03/23 20:00 07/04/23 08:56 Temperature 98.9 F 98.4 F Pulse Rate 68 71 Respiratory Rate 18 20 Blood Pressure 118/61 109/62 Pulse Oximetry 100 97 Oxygen Delivery Method Room Air Room Air BMI result Body Mass Index 42.8 Labs 07/01/23 18:09 07/01/23 18:09 Medications Medications Current Medications Acetaminophen (Acetaminophen 325 Mg Tablet) 650 mg PO Q6H PRN PRN Reason: Headache/Pain Mild Scale (1-3) Last Admin: 07/03/23 15:14 Dose: 650 mg Al Hydroxide/Mg Hydroxide (Magnesium Hydrox/Alum Hydrox 30 Ml Oral.Susp) 30 ml PO Q6H PRN PRN Reason: Heartburn/Nausea Hydroxyzine HCl (Hydroxyzine Hcl 25 Mg Tablet) 25 mg PO Q6H PRN PRN Reason: Anxiety [place] Carbonate ([place] Carbonate 300 Mg Capsule) 600 mg PO BID [facility] Last Admin: 07/04/23 08:18 Dose: 600 mg Magnesium Hydroxide (Milk Of Magnesia 30 Ml Oral.Susp) 30 ml PO DAILY PRN PRN Reason: Constipation Nicotine Polacrilex (Nicotine Polacrilex 2 Mg Gum) 4 mg BUCCAL Q2H PRN PRN Reason: Nicotine Cravings Quetiapine Fumarate (Quetiapine Fumarate 25 Mg Tablet) 25 mg PO BEDTIME [facility] Last Admin: 07/03/23 22:27 Dose: 25 mg Trazodone HCl (Trazodone Hcl 50 Mg Tablet) 50 mg PO BEDTIME MRX1 PRN PRN Reason: Insomnia Allergies Allergies Allergy/AdvReac Type Severity Reaction Status Date / Time No Known Allergies Allergy Verified 06/30/23 12:19 [No Known Allergies*] Assessment & Plan Assessment & Plan (1) Asperger syndrome: Status: Acute Code(s): F84.5 - Asperger's syndrome (2) Bipolar 1 disorder, depressed, moderate: Status: Acute Code(s): F31.32 - Bipolar disorder, current episode depressed, moderate Plan 07/03: continue outpt medication for now. allow rest and recuperation. 07/04: continue current mgmt. continues to feel better than prior to admission. check lithium level prior to DC. Reason for continued inpatient stay Substantial Risk for: harm to self, inability to function and rapid decompensation Time Spent With Patient Time: Total time managing care of this patient today __25__ minutes.
[2023-07-04 20:00] VITALS: BP 126/69; PULSE 68; RESP 16; TEMP 36.3; O2SAT 98
[2023-07-04] MEDS: QUEtiapine Fumarate 25 MG TABLET PO (20:44)
[2023-07-05 07:45] VITALS: BP 112/66; PULSE 61; RESP 16; TEMP 36.2; O2SAT 100
[2023-07-05] MEDS: Lithium Carbonate 300 MG CAPSULE 600 MG PO ×2 (08:43→20:34)
--- NOTE | 2023-07-05 14:08 | P.PNPSI_ITS ---
Subjective Subjective Date of Service: 07/05/23 Reason For Visit: SI Interim History: calm, cooperative. states he is feeling very well both emotionally and physically. aware of lithium level to be drawn sunday. reviewed flu isolation precautions, pt may emerge from his room on sunday. per staff, taking meals and meds. dep/anx low. Mental Status Exam Mental Status Exam Narrative: Pt is alert and oriented; behavior is cooperative, friendly and calm; mood is described as very good; eye contact appropriate; Speech is normal rate, volume and prosody and not pressured; no psychomotor agitation/retardation present; thought process is organized and goal directed; Thought content is on tx; otherwise pertinent to relevant topics and without any delusional content, paranoid ideations or grandiosity; no SI/HI/AVH expressed. Patients insight and judgment are fair. Diagnostics Vital Signs (24Hr): Vital Signs - 24 hr 07/04/23 20:00 07/05/23 07:45 Temperature 97.3 F 97.1 F Pulse Rate 68 61 Respiratory Rate 16 16 Blood Pressure 126/69 112/66 Pulse Oximetry 98 100 Oxygen Delivery Method Room Air Room Air BMI result Body Mass Index 42.8 Labs 07/01/23 18:09 07/01/23 18:09 Medications Medications Current Medications Acetaminophen (Acetaminophen 325 Mg Tablet) 650 mg PO Q6H PRN PRN Reason: Headache/Pain Mild Scale (1-3) Last Admin: 07/03/23 15:14 Dose: 650 mg Al Hydroxide/Mg Hydroxide (Magnesium Hydrox/Alum Hydrox 30 Ml Oral.Susp) 30 ml PO Q6H PRN PRN Reason: Heartburn/Nausea Hydroxyzine HCl (Hydroxyzine Hcl 25 Mg Tablet) 25 mg PO Q6H PRN PRN Reason: Anxiety [place] Carbonate ([place] Carbonate 300 Mg Capsule) 600 mg PO BID [facility] Last Admin: 07/05/23 08:43 Dose: 600 mg Magnesium Hydroxide (Milk Of Magnesia 30 Ml Oral.Susp) 30 ml PO DAILY PRN PRN Reason: Constipation Nicotine Polacrilex (Nicotine Polacrilex 2 Mg Gum) 4 mg BUCCAL Q2H PRN PRN Reason: Nicotine Cravings Quetiapine Fumarate (Quetiapine Fumarate 25 Mg Tablet) 25 mg PO BEDTIME [facility] Last Admin: 07/04/23 20:44 Dose: 25 mg Trazodone HCl (Trazodone Hcl 50 Mg Tablet) 50 mg PO BEDTIME MRX1 PRN PRN Reason: Insomnia Allergies Allergies Allergy/AdvReac Type Severity Reaction Status Date / Time No Known Allergies Allergy Verified 06/30/23 12:19 [No Known Allergies*] Assessment & Plan Assessment & Plan (1) Asperger syndrome: Status: Acute Code(s): F84.5 - Asperger's syndrome (2) Bipolar 1 disorder, depressed, moderate: Status: Acute Code(s): F31.32 - Bipolar disorder, current episode depressed, moderate Plan 07/03: continue outpt medication for now. allow rest and recuperation. 07/04: continue current mgmt. continues to feel better than prior to admission. check lithium level prior to DC. : continue current mgmt. feeling much improved in both body and spirit. check lithium level sunday morning. may emerges from isolation sunday. Reason for continued inpatient stay Substantial Risk for: inability to function and rapid decompensation Time Spent With Patient Time: Total time managing care of this patient today __25__ minutes.
[2023-07-05 20:30] VITALS: BP 119/76; PULSE 82; RESP 16; TEMP 36.6; O2SAT 99
[2023-07-05] MEDS: QUEtiapine Fumarate 25 MG TABLET PO (20:58)
[2023-07-06 08:40] VITALS: BP 112/70; PULSE 77; RESP 16; TEMP 35.8; O2SAT 100
[2023-07-06] MEDS: Lithium Carbonate 300 MG CAPSULE 600 MG PO ×2 (08:57→22:26)
--- NOTE | 2023-07-06 12:27 | P.PNPSI_ITS ---
Subjective Subjective Date of Service: 07/06/23 Reason For Visit: SI Interim History: calm, cooperative. continues to report feeling well both physically and emotionally. will check lithium level and labs tomorrow morning, pt aware. then can discuss discharge shortly thereafter. per staff, isolation ends sunday. flat, withdrawn. bored. declined ipad, headphones. taking meds, slept well. Mental Status Exam Mental Status Exam Narrative: Pt is alert and oriented; behavior is cooperative, friendly and calm; mood is described as very good; eye contact appropriate; Speech is normal rate, volume and prosody and not pressured; no psychomotor agitation/retardation present; thought process is organized and goal directed; Thought content is on tx; otherwise pertinent to relevant topics and without any delusional content, paranoid ideations or grandiosity; no SI/HI/AVH expressed. Patients insight and judgment are fair. Diagnostics Vital Signs (24Hr): Vital Signs - 24 hr 07/05/23 20:30 07/06/23 08:40 Temperature 97.8 F 96.4 F L Pulse Rate 82 77 Respiratory Rate 16 16 Blood Pressure 119/76 112/70 Pulse Oximetry 99 100 Oxygen Delivery Method Room Air Room Air BMI result Body Mass Index 42.8 Labs 07/01/23 18:09 07/01/23 18:09 Medications Medications Current Medications Acetaminophen (Acetaminophen 325 Mg Tablet) 650 mg PO Q6H PRN PRN Reason: Headache/Pain Mild Scale (1-3) Last Admin: 07/03/23 15:14 Dose: 650 mg Al Hydroxide/Mg Hydroxide (Magnesium Hydrox/Alum Hydrox 30 Ml Oral.Susp) 30 ml PO Q6H PRN PRN Reason: Heartburn/Nausea Hydroxyzine HCl (Hydroxyzine Hcl 25 Mg Tablet) 25 mg PO Q6H PRN PRN Reason: Anxiety [place] Carbonate ([place] Carbonate 300 Mg Capsule) 600 mg PO BID [facility] Last Admin: 07/06/23 08:57 Dose: 600 mg Magnesium Hydroxide (Milk Of Magnesia 30 Ml Oral.Susp) 30 ml PO DAILY PRN PRN Reason: Constipation Nicotine Polacrilex (Nicotine Polacrilex 2 Mg Gum) 4 mg BUCCAL Q2H PRN PRN Reason: Nicotine Cravings Quetiapine Fumarate (Quetiapine Fumarate 25 Mg Tablet) 25 mg PO BEDTIME [facility] Last Admin: 07/05/23 20:58 Dose: 25 mg Trazodone HCl (Trazodone Hcl 50 Mg Tablet) 50 mg PO BEDTIME MRX1 PRN PRN Reason: Insomnia Allergies Allergies Allergy/AdvReac Type Severity Reaction Status Date / Time No Known Allergies Allergy Verified 06/30/23 12:19 [No Known Allergies*] Assessment & Plan Assessment & Plan (1) Asperger syndrome: Status: Acute Code(s): F84.5 - Asperger's syndrome (2) Bipolar 1 disorder, depressed, moderate: Status: Acute Code(s): F31.32 - Bipolar disorder, current episode depressed, moderate Plan 07/03: continue outpt medication for now. allow rest and recuperation. 07/04: continue current mgmt. continues to feel better than prior to admission. check lithium level prior to DC. : continue current mgmt. feeling much improved in both body and spirit. check lithium level sunday morning. may emerges from isolation sunday. 07/05: continues to feel well. check labs tomorrow, plan for sunday discharge. Reason for continued inpatient stay Substantial Risk for: inability to function and rapid decompensation Time Spent With Patient Time: Total time managing care of this patient today __25__ minutes.
[2023-07-06 22:20] VITALS: BP 128/77; PULSE 66; RESP 16; TEMP 36.7; O2SAT 97
[2023-07-06] MEDS: QUEtiapine Fumarate 25 MG TABLET PO (22:25)
[2023-07-07 07:41] LABS: Lithium 0.85 mmol/L (0.60-1.20)
[2023-07-07 07:49] LABS: Anion Gap 11 (12-20); Blood Urea Nitrogen 13 mg/dL (9-16); Calcium 9.3 mg/dL (8.4-10.2); Carbon Dioxide 26 mmol/L (22-29); Chloride 107 mmol/L (96-108); Creatinine Clr Calc Pharmacy 153.8; Estimated Glomerular Filt Rate > 60; Glucose Random 89 mg/dL (60-115); Sodium 140 mmol/L (135-145)
[2023-07-07 07:56] VITALS: BP 114/67; PULSE 61; RESP 16; TEMP 36.5; O2SAT 98
[2023-07-07] MEDS: Lithium Carbonate 300 MG CAPSULE 600 MG PO ×2 (08:28→22:32)
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
[2023-07-07 18:31] VITALS: TEMP 36.8
[2023-07-07 20:19] VITALS: BP 130/74; PULSE 88; RESP 18; TEMP 37.6; O2SAT 99
[2023-07-07] MEDS: QUEtiapine Fumarate 25 MG TABLET PO (22:32)
[2023-07-07] MEDS: Acetaminophen 325 MG TABLET 650 MG PO (22:32)
[2023-07-08 07:15] VITALS: BP 114/70; PULSE 68; RESP 16; TEMP 36.5; O2SAT 100
[2023-07-08] MEDS: Lithium Carbonate 300 MG CAPSULE 600 MG PO (08:34)
== END 2023-07-08 11:37 | disposition home or self-care (01) | DRG 753 ==
LOC: HO.ED 16:43 → HO.PADLT16 07-02 13:53
PROVIDERS: Nurse Practitioner Family; Admitting Provider Psychiatry & Neurology Psychiatry; Emergency Provider Emergency Medicine; Visit Provider Psychiatry & Neurology Psychiatry
DX: F31.32 Bipolar disorder, current episode depressed, moderate (principal); R45.851 Suicidal ideations; Z91.148 Patient's other noncompliance with medication regimen for other reason; J10.1 Influenza due to other identified influenza virus with other respiratory manifestations; F84.5 Asperger's syndrome; Z20.822 Contact with and (suspected) exposure to COVID-19; Z59.01 Sheltered homelessness; Z79.899 Other long term (current) drug therapy
CPT/HCPCS: 36415; 80048; 80053; 80178; 80307; 81003; 85025; 87502; 87635; 93005; 99285; S9485

== ENCOUNTER 2023-07-02 13:17 | Outpatient (BNV) | payer OTHER, SELFPAY | END 2023-07-02 13:25 | PROVIDERS: Admitting Provider Psychiatry & Neurology Psychiatry; Emergency Provider Emergency Medicine; Visit Provider Internal Medicine | DX: I45.81 Long QT syndrome (principal) | CPT/HCPCS: 93010 ==

== ENCOUNTER → 2023-07-02 13:17 | Outpatient (BNV) | payer OTHER, SELFPAY | PROVIDERS: Admitting Provider Psychiatry & Neurology Psychiatry; Emergency Provider Emergency Medicine; Visit Provider Psychiatry & Neurology Psychiatry | DX: F31.32 Bipolar disorder, current episode depressed, moderate (principal); F84.5 Asperger's syndrome | CPT/HCPCS: 90792; 99231; 99232; 99238 ==

== ENCOUNTER 2024-04-05 15:11 | Emergency (ER) | payer SELFPAY ==
[2024-04-05 15:14] VITALS: BP 137/77; PULSE 80; RESP 20; TEMP 35.2; O2SAT 97; BMI 43.2
--- NOTE | 2024-04-05 15:15 | ED_ITS ---
HPI - Psych General Chief Complaint: Psychiatric Symptoms Stated Complaint: crisis, suicidal Time Seen by Provider: 04/05/24 16:01 Source: patient, RN notes reviewed and old records reviewed Mode of arrival: ambulatory Limitations: no limitations History of Present Illness ED Provider: Rosaline ALBARRAN Narrative: 33-year-old male with history of Asperger's syndrome bipolar disorder presents for evaluation of suicidal ideation. Patient reports that he has been suicidal for about 20 years. He has never tried to harm himself He reports that he has been compliant with his lithium and Seroquel. He states that for the last few years he has been living out of his car. Over the last week his car ? and has no place to live. The patient reports that he was at respite last week and was discharged on Sunday. He went to [facility] last night and was discharged this morning He was still feeling suicidal because he has no place to stay Related Data Home Medications ?Medication ?Instructions ?Recorded ?Confirmed quetiapine 25 mg tablet 50 mg PO BEDTIME 06/29/23 04/05/24 lithium carbonate 300 mg 300 mg PO BID 04/05/24 04/05/24 tablet,extended release Allergies Allergy/AdvReac Type Severity Reaction Status Date / Time No Known Allergies Allergy Verified 04/05/24 15:16 [No Known Allergies*] Review of Systems 2 Constitutional: Constitutional: Denies body ache(s), Denies chills and Denies fever(s) Eyes: Eyes: Denies blurry vision ENT: Denies vertigo and Denies dizziness Cardiovascular: Cardiovascular: Denies chest pain and Denies dyspnea Respiratory: Respiratory: Denies cough and Denies dyspnea Gastrointestinal: Gastrointestinal: Denies abdominal pain, Denies nausea and Denies vomiting Musculoskeletal: Musculoskeletal: Denies back pain Integumentary/Breasts: Skin/Breast: Denies rash Neurologic: Denies vertigo and Denies dizziness Psychiatric: Psychiatric: Reports anxiety, Reports depression, Denies auditory hallucinations, Reports hopelessness, Denies visual hallucinations and Reports suicidal ideation [facility] Past Medical History Medical History Routine medical exam Chronic dermatitis Bipolar 1 disorder, depressed, severe Anxiety Asperger syndrome Bipolar 1 disorder Social History Social History Household Members: None Household Members Other:: in and out of hotel's Housing: Homeless Do you presently have visiting nurse or other home services: No Alcohol intake: current Alcohol intake frequency: a few times a week Alcohol type: beer Patient Tobacco Use Status: Never used Tobacco Smoked in Last 30 Days: No e-Cigarette/Vaping Use: Never Used Second Hand Smoke Exposure: No Use of substances other than those prescribed or required for medical reasons: No Advance Directives: No Advance Directives Information Provided: No Healthcare Proxy: No Guardian: No Do you have a plan to hurt others: No Plan service: No Sexual orientation: Straight/Heterosexual Physical Exam 2 Vital Signs: Vital Signs: Last Vital Signs Temp 95.3 F L 04/05/24 15:14 Pulse 80 04/05/24 15:14 Resp 16 04/05/24 15:20 BP 137/77 04/05/24 15:14 Pulse Ox 97 04/05/24 15:14 O2 Del Method Room Air 04/05/24 15:14 BMI result Body Mass Index 43.2 Const: General: healthy appearing, comfortable, no acute distress, alert and awake Nutritional Appearance: well nourished Orientation/consciousness: p atient oriented x3 HEENT: Head: Yes normocephalic and Yes atraumatic Eyes: Eyelids: Yes eyelids normal Conjunctivae: conjunctivae normal S clerae: sclerae normal Corneas: corneas normal Pupils: Equal, round and reactive pupils present EOM: EOMs intact bilaterally Neck: Neck: Yes full ROM Resp: Effort & Inspection: normal respiratory effort, able to speak in complete sentences and not labored Cardio: Rate: regular rate Rhythm: regular rhythm GI: Inspection: No distended Palpation (GI): Soft to palpation, not firm, nontender, no guarding and not rigid Skin: General skin exam: elasticity normal Neuro: General: patient oriented x3 Cranial nerves: Yes Equal, round and reactive pupils present and Yes Bilaterally intact EOM present Cognition (Neuro): normal cognition Course Course Course Narrative: This is a Rapid Medical Examination (RME) performed by Franko Mosley PA-C in triage. Full HPI, ROS, assessment and treatment plan per primary provider in the Main ED. 33 yo male hx of bipolar disprder, aspergers here for eval of SI without plan. states he has been living out of his car for the last 3 years. his car recently broke down. he was seen at [facility] last night and discharged this morning as there were no beds. denies HI. denies prior attempts. denies AH/VH/TH. reports etoh consumption on occasion. no ilicit substance use. Plan: medical clearance Reevaluation(s) Reevaluation #1: Patient is seen by the care team and cleared for discharge. He just had a 10 day stay and respite. Seems the patient's symptoms are mostly related to homelessness, he was given outpatient resources Time: 18:35 Medical Decision Making Medical Decision Making MDM Narrative: 33-year-old male presents for evaluation of suicidal ideation and depression. He has no somatic complaints. Vital signs are stable. Plan for medical clearance with basic labs, we will try lithium level but the patient reports being compliant with his medication. He will require x-ray team evaluation for his suicidal ideation Differential Diagnosis Differential Diagnoses: The differential diagnosis associated with the presentation includes Bipolar disorder Suicidal ideation Depression Homelessness Lab Data 04/05/24 17:11 04/05/24 17:11 Labs: Lab Results 04/05/24 04/05/24 Range/Units 16:42 17:11 WBC 8.7 (4.8-10.8) X10*3/uL RBC 5.90 H (4.60-5.80) X10*6/uL Hgb 17.4 (14.0-18.0) g/dl Hct 51.2 (42.0-52.0) % MCV 86.8 (80.0-98.0) fL MCH 29.5 (27.0-33.0) pg MCHC 34.0 (31.0-36.0) g/dl RDW 12.0 (11.0-16.0) % Plt Count 212 (160-400) X10*3/uL MPV 11.9 (9.4-12.4) fL Immature Gran % (Auto) 0.2 (0.0-0.4) % Neut % (Auto) 69.1 (45-73) % Lymph % (Auto) 19.6 L (20-40) % [place] % (Auto) 7.1 (2-11) % Eos % (Auto) 3.3 (0-4) % Baso % (Auto) 0.7 (0-2) % Lymph # (Auto) 1.7 (1.2-4.9) X10*3/uL [place] # (Auto) 0.6 (0.1-1.2) X10*3/uL Eos # (Auto) 0.3 (0.0-0.4) X10*3/uL Baso # (Auto) 0.1 (0.0-0.2) X10*3/uL Abs Immat Gran (auto) 0.02 (0.00-0.03) X10*3/uL Absolute Neuts (auto) 6.0 (2.0-8.3) x10*3/uL Absolute Nucleated RBC 0.000 (0.0-0.012) X10*3/uL Nucleated RBC % (auto) 0.0 (0.0-0.2) /100WBC Sodium 141 (135-145) mmol/L Potassium 3.8 (3.3-5.1) mmol/L Chloride 105 (96-108) mmol/L Carbon Dioxide 26 (22-29) mmol/L Anion Gap 14 (12-20) BUN 11 (9-16) mg/dL Creatinine 0.96 (0.5-1.4) mg/dL Estim Creat Clear Calc 135.7 Estimated GFR > 60 Random Glucose 89 (60-115) mg/dL Calcium 10.2 D (8.4-10.2) mg/dL Magnesium 2.1 (1.6-2.6) mg/dL Total Bilirubin 0.8 (0.0-1.0) mg/dL AST 29 (5-37) U/L ALT 35 (0-40) U/L Alkaline Phosphatase 93 (39-117) U/L Total Protein 7.9 (6.5-8.0) g/dL Albumin 4.7 (3.5-5.0) g/dL Urine Color Yellow Urine Appearance Clear Urine pH 6.5 (5.0-9.0) Ur Specific [place] 1.020 (1.005-1.025) Urine Protein Negative (Neg-Trace) mg/dL Urine Glucose (UA) Negative (Negative) mg/dL Urine Ketones Negative (Negative) mg/dL Urine Blood Negative (Negative) Urine Nitrite Negative (Negative) Ur Leukocyte Esterase Negative (Negative) Salicylates < 5.0 L (15-30) mg/dL Urine Opiates Screen Not Detected (Not Detect) Ur Buprenorphine Scrn Not Detected (Not Detect) ng/mL Ur Oxycodone Screen Not Detected (Not Detect) ng/mL Urine Methadone Screen Not Detected (Not Detect) ng/mL Urine Fentanyl Screen Not Detected (Not Detect) Acetaminophen < 3 (<30) mcg/mL Ur Barbiturates Screen Not Detected (Not Detect) Ur Phencyclidine Scrn Not Detected (Not Detect) Ur Amphetamines Screen Not Detected (Not Detect) U Benzodiazepines Scrn Not Detected (Not Detect) [place] 0.26 L (0.60-1.20) mmol/L Urine Cocaine Screen Not Detected (Not Detect) U Marijuana (THC) Screen Not Detected (Not Detect) Ethyl Alcohol < 10 mg/dL Discharge Plan Discharge Clinical Impression: Suicidal ideation, Homeless Patient Disposition: Home, Self-Care Instructions: Suicide Prevention (ED) Additional Instructions: You do not meet criteria for an inpatient psychiatric admission. Take all your medications as directed. Follow-up with your outpatient providers You may try to get housing at a local [place] health care facility Prescriptions: No Action quetiapine 25 mg tablet 50 mg PO BEDTIME lithium carbonate 300 mg Tablet Extended Release 300 mg PO BID Interventions: Williamson-Suicide Risk Severity Scale Last Done: 04/05/24 15:20 Print Language: Chinese
[2024-04-05 15:20] VITALS: RESP 16
[2024-04-05 17:10] LABS: Appearance Urine Clear; Color Urine Yellow; Glucose Urine UA Negative (Negative); Leukocyte Esterase Urine Negative (Negative); Nitrite Urine Negative (Negative); PH 6.5 (5.0-9.0); Urine Blood Negative (Negative); Urine Ketones Negative (Negative); Urine Protein Negative (Neg-Trace)
[2024-04-05 17:16] LABS: MANUAL DIFF FLAG NO
[2024-04-05 17:20] LABS: Basophils Absolute Auto 0.1 X10*3/uL (0.0-0.2); Basophils Percent Auto 0.7 % (0-2); Eosinophils Absolute Auto 0.3 X10*3/uL (0.0-0.4); Eosinophils Percent Auto 3.3 % (0-4); Hematocrit 51.2 % (42.0-52.0); Hemoglobin 17.4 g/dl (14.0-18.0); Imm Gran Abs Auto 0.02 X10*3/uL (0.00-0.03); Imm Gran Pct Auto 0.2 % (0.0-0.4); Lymphocytes Absolute Auto 1.7 X10*3/uL (1.2-4.9); Lymphocytes Percent Auto 19.6 % (20-40); Mean Corpuscular Hemoglobin 29.5 pg (27.0-33.0); Mean Corpuscular Volume 86.8 fL (80.0-98.0); Mean Platelet Volume 11.9 fL (9.4-12.4); Monocytes Absolute Auto 0.6 X10*3/uL (0.1-1.2); Monocytes Percent Auto 7.1 % (2-11); Neutrophils Percent Auto 69.1 % (45-73); Platelet Count 212 X10*3/uL (160-400); White Blood Count 8.7 X10*3/uL (4.8-10.8)
[2024-04-05 17:28] LABS: Amphetamine Screen Urine Not Detected (Not Detect); Barbiturates, Urine Not Detected (Not Detect); Benzodiazepines Screen Urine Not Detected (Not Detect); Buprenorphine Scr Not Detected (Not Detect); Cannabinoid Screen Urine Not Detected (Not Detect); Cocaine Screen Urine Not Detected (Not Detect); Fentanyl, urine Not Detected (Not Detect); Methadone Screen, Urine Not Detected (Not Detect); Opiate Screen Urine Not Detected (Not Detect); Oxycodone Screen Urine Not Detected (Not Detect); Phencyclidine Screen Urine Not Detected (Not Detect)
[2024-04-05 17:29] LABS: Lithium 0.26 mmol/L (0.60-1.20)
[2024-04-05 17:41] LABS: Acetaminophen LAB < 3 mcg/mL (<30); Alanine Aminotransferase 35 U/L (0-40); Albumin Level 4.7 g/dL (3.5-5.0); Alkaline Phosphatase 93 U/L (39-117); Anion Gap 14 (12-20); Aspartate Amino Transferase 29 U/L (5-37); Bilirubin Total 0.8 mg/dL (0.0-1.0); Blood Urea Nitrogen 11 mg/dL (9-16); Calcium 10.2 mg/dL (8.4-10.2); Carbon Dioxide 26 mmol/L (22-29); Chloride 105 mmol/L (96-108); Creatinine Clr Calc Pharmacy 135.7; Estimated Glomerular Filt Rate > 60; Ethanol < 10 mg/dL; Glucose Random 89 mg/dL (60-115); Magnesium 2.1 mg/dL (1.6-2.6); Potassium 3.8 mmol/L (3.3-5.1); Salicylate < 5.0 mg/dL (15-30); Sodium 141 mmol/L (135-145); Total Protein 7.9 g/dL (6.5-8.0)
[2024-04-05 18:57] VITALS: BP 137/77; PULSE 80; RESP 20; TEMP 35.2; O2SAT 97
== END 2024-04-05 18:58 | disposition home or self-care (01) ==
PROVIDERS: Physician Assistant; Physician Assistant Medical; Emergency Provider Emergency Medicine Emergency Medical Services
DX: R45.851 Suicidal ideations (principal); F84.5 Asperger's syndrome; F31.9 Bipolar disorder, unspecified; Z59.00 Homelessness unspecified; Z79.899 Other long term (current) drug therapy
CPT/HCPCS: 36415; 80053; 80143; 80178; 80179; 80307; 81003; 83735; 85025; 99285